=== PATIENT | female | born 1960 | race Caucasian/White ===

== ENCOUNTER → 2020-05-05 10:01 | Outpatient (CLI) | payer BC, SELFPAY ==
[2020-05-05 09:17] VITALS: BMI 33.7
[2020-05-05 12:11] LABS: AST(SGOT) 22 U/L (15-37); Alanine Aminotransfer ALT/SGPT 34 U/L (13-56); Albumin, Serum 3.8 g/dL (3.2-5.0); Alkaline Phosphatase 99 U/L (45-117); Bilirubin, Direct 0.12 mg/dL (0.00-0.30); Cholesterol 202 mg/dL (200); Globulin 4.2 g/dL (2.2-4.2); High Density Lipoprotein 61 mg/dL; Triglycerides 206 mg/dL; Very Low Density Lipoprotein 41 mg/dL (5-40)
== END ==
PROVIDERS: PCP Family Medicine; Referring Provider Internal Medicine Cardiovascular Disease; Visit Provider Internal Medicine Cardiovascular Disease
DX: E78.00 Pure hypercholesterolemia, unspecified (principal)
CPT/HCPCS: 36415; 80061; 80076

== ENCOUNTER → 2021-06-21 10:54 | Outpatient (CLI) | payer BC, SELFPAY ==
--- NOTE | 2021-06-21 11:01 | ECHOCS_ITS ---
Version 2 Reason For Study: Arrhythmia Procedure This was a 2D Doppler, Color Flow transthoracic echocardiogram. Contrast injection was performed. Exam performed in department. Left Ventricle Normal LV size. Left ventricular systolic function is normal. The estimated ejection fraction is 55 %. Stage 1 diastolic dysfunction. Apical wall motion abnormality may reflect pacemaker activation. Right Ventricle Normal RV size. ICD or pacer leads identified within the right ventricle. Normal systolic function. Atria Normal left atrium. Normal right atrium. Hypermobile atrial septum. Tricuspid Valve Normal tricuspid valve. Mild (1+) tricuspid valve insufficiency. Great Vessels Normal aortic root. The pulmonary artery is normal size. Pericardium/Pleural No pericardial effusion. Medication Diluted definity 4ml given slow IV push to enhance endocardial definition. MMode/2D Measurements & Calculations LVIDd: 4.9 cm IVSd: 0.96 cm Ao root diam: 3.1 cm LVIDs: 2.7 cm LVPWd: 0.77 cm RVDd: 4.4 cm FS: 45.6 % LAV(MOD-bp): 47.5 ml SV(MOD-sp4): 54.7 ml LVAd ap4: 34.4 cm2 LAV(MOD-bp) Indexed: 24.7 ml/m2 LVLd ap4: 8.0 cm LAV(MOD-sp2): 52.4 ml EDV(MOD-sp4): 119.4 ml LAV(MOD-sp4): 41.6 ml EDV(sp4-el): 125.5 ml LVAs ap4: 25.0 cm2 LVLs ap4: 7.6 cm ESV(MOD-sp4): 64.7 ml ESV(sp4-el): 70.2 ml EF(MOD-sp4): 45.8 % EF(sp4-el): 44.1 % SV(sp4-el): 55.3 ml LA dimension(2D): 3.6 cm LA A4 area: 15.9 cm2 RA A4 area: 16.8 cm2 Doppler Measurements & Calculations MV E max nathanael: 52.6 cm/sec Lat Peak E' Nathanael: 8.6 cm/sec Med Peak E' Nathanael: 5.9 cm/sec MV A max nathanael: 81.5 cm/sec E/E' lat: 6.1 E/E' med: 9.0 MV E/A: 0.65 Ao V2 max: 138.5 cm/sec LV V1 max: 129.0 cm/sec PA V2 max: 98.1 cm/sec Ao max P.7 mmHg LV V1 max P.7 mmHg Ao V2 mean: 99.5 cm/sec Ao mean P.3 mmHg Ao V2 VTI: 28.0 cm TR max nathanael: 246.1 cm/sec TR max P.2 mmHg ECHO/Echo Complete W/ Contrast Interpretation Summary Hypermobile atrial septum. Normal LV size. Left ventricular systolic function is normal. The estimated ejection fraction is 55 %. Stage 1 diastolic dysfunction. Mild (1+) tricuspid valve insufficiency. Compared to previous study, the left ventricular systolic function is the same. . Ordering Physician: Tanvir Gallo Referring Physician: Fran Chowdary Performed By: Geovanna Azar, RDCS, RVT
== END ==
PROVIDERS: PCP Family Medicine; Referring Provider Internal Medicine Cardiovascular Disease; Visit Provider Internal Medicine Cardiovascular Disease
DX: I42.8 Other cardiomyopathies (principal); I44.2 Atrioventricular block, complete; Z95.0 Presence of cardiac pacemaker
CPT/HCPCS: 93306; Q9957; A4216; C8929

== ENCOUNTER → 2025-04-22 | Outpatient (CLI) | payer OTHER, SELFPAY ==
--- NOTE | 2025-04-22 12:05 | RAD_ITS ---
PROCEDURE: CHEST PA AND LATERAL 04/22/2025 REASON FOR EXAM: FOR PPM GENERATOR CHANGE TECHNIQUE: Procedure Code: RADCXR Modality: DX Procedure: CHEST PA AND LATERAL COMPARISON: None FINDINGS: Left chest pacer. Bibasilar subsegmental atelectasis. No focal consolidation. No pleural effusion or pneumothorax. Cardiac silhouette is within normal limits. No acute fractures. RAD/Chest PA and Lateral IMPRESSION: No focal consolidations. Left chest pacer is noted with leads likely in approp riate position Reading Location: [id number]
[2025-04-22 12:18] LABS: Red Blood Cells-Urine 0 SEEN /hpf (0-5)
[2025-04-22 12:19] LABS: Mucous, Urine 0 SEEN /hpf (<or=2+)
[2025-04-22 12:46] LABS: Hematocrit 39.2 % (37-47); Hemoglobin 13.5 g/dL (12.0-15.0); Mean Corp Hgb Conc 34.4 g/dL (32-36); Mean Corpuscular Volume 90.1 fL (81-99); Mean Platelet Vol. 9.6 fl (6.2-12.0); Platelet Count 251 K/mm3 (150-450); RBC Distribution Width CV 12.2 % (11.6-14.6); RBC Distribution Width SD 39.8 fl (35.1-43.9); Red Blood Count 4.35 M/mm3 (4.2-5.4); White Blood Count 7.2 K/mm3 (4.4-11.0)
[2025-04-22 12:50] LABS: Color, Urine Yellow (Yellow); Glucose, Dipstick Normal (Normal); Ketone-Dipstick Negative (Negative); Leukocyte Esterase-Dipstick 25 /ul (Negative); Nitrite-Dipstick Negative (Negative); Occult Blood-Urine 10 /ul (Negative); Protein-Dipstick 15 mg/dl (Negative); Specific Gravity, Urine 1.010 (1.002-1.030); Urine Bilirubin Dipstick Negative (Negative)
[2025-04-22 12:55] LABS: Prothrombin Time (Protime)PT. 13.2 SECONDS (11.7-14.9)
[2025-04-22 13:05] LABS: Squamous Epithelial Cells - UA 0-5 SEEN /hpf (5-10)
[2025-04-22 13:46] LABS: Anion Gap 10 (5-15); BUN 21 mg/dL (4-19); BUN/Creat Ratio 22.3 RATIO (10-20); Calcium,Total 10.1 mg/dL (7.6-11.0); Carbon Dioxide 25.7 mmol/L (21.0-32.0); Chloride 103 mmol/L (98-108); Glucose 105 mg/dL (70-99); Potassium 4.1 mmol/L (3.3-5.1)
== END | disposition home or self-care (01) ==
LOC: RAD 11:57
PROVIDERS: PCP Family Medicine; Referring Provider Internal Medicine Cardiovascular Disease; Visit Provider Internal Medicine Cardiovascular Disease
DX: I44.2 Atrioventricular block, complete (principal); Z95.0 Presence of cardiac pacemaker
CPT/HCPCS: 36415; 71046; 80048; 81001; 85027; 85610

== ENCOUNTER 2025-04-25 06:57 | Day surgery (SDC) | payer OTHER, SELFPAY ==
[2025-04-24 09:48] VITALS: BMI 35.5
--- OUTSIDE RECORDS SUMMARY | 2025-04-25 07:19 | XMS RPT_ITS | CCD ---
Author Organization [facility] Care Team Providers Care Veneer Sorter Name Role Phone Herrera RN, Tena Reyna Unavailable Unavailable TERRI Silverman, Tena Reyna Unavailable Unavailable DeFinis, Harumi Y Unavailable Unavailable Herrera RN, Tena Reyna Unavailable Unavailable Epi RUIZ, Tiarra Meza Unavailable Clint RUIZ, Dr. Ramey Unavailable Akila MURRAY, Michell Unavailable Unavailable Bunny HEAD BAKER, Jaimie Unavailable Jeovany HEAD BAKER, Bridgette E Unavailable Unavailable Lakeisha Salgado C Unavailable Unavailable Naomi RN, Kyung L Unavailable Unavail able Jakob HEAD BAKER, Di Unavailable Unavailable Thierry MURRAY, Kimi Meza Unavailable Unavaila jaci Cruz RN, Mariel Unavailable [phone] Jana MURRAY, Daisy Godinez Unavailable Unavailable Miguel Holdena L Unavailable Afia HEAD BAKER, Nuvia Patel Unavailable Unavailab le Vess HEAD BAKER, Neilee L Unavailable Unavailable Wengerd HEAD BAKER, Evelia Unavailable Unavailabl e Unavailable Unavailable TIARRA CEDENO Attending Unavailable TIARRA CEDENO Admitting Unavailable TIARRA CEDENO Primary Care Unavailable TIARRA CEDENO Consulting Unavailable PROVIDER, UNKNOWN Consulting Unavailable PROVIDER, UNKNOWN Consulting Unavailable PROVIDER, UNKNOWN Consulting Unavailable TIARRA CEDENO Attending Unavailable TIARRA CEDENO Admitting Unavailable TIARRA CEDENO Primary Care Unavailable TIARRA CEDENO Consulting Unavailable PROVIDER, UNKNOWN Consulting Unavailable PROVIDER, UNKNOWN Consulting Unavailable PROVIDER, UNKNOWN Consulting Unavailable Dr. Tiarra Cedeno MD Primary Care Provider Epi RUIZ, Dr. Peters Referring Provider Gia Silverman Attending Provider Unavailable Allyson HERNANDEZ, Di Reyna Attending Provider Tanesha RUIZ, Dr. Ramey Attending Provider Tanesha RUIZ, Dr. Ramey Referring Provider Epi RUIZ, Dr. Peters Primary Care Physician Tanesha RUIZ, Dr. Ramey Attending Physician Gia Silverman Attending Physician Unavailable Di Boyce Attending Physician Tanesha, Tanvir Attending Unavailable Vaccariello, Tiarra Primary Care Unavailable Vaccariello, Tiarra Referring Unavailable Tanesha, Vining Attending Unavailable Vaccariello, Tiarra Primary Care Unavailable Tanesha, Vining Referring Unavailable Tanesha, Tanvir Attending Unavailable Vaccariello, Tiarra Primary Care Unavailable Tanesha, Vining Referring Unavailable Tanesha, Tanvir Attending Unavailable Vaccariello, Tiarra Primary Care Unavailable Tanesha, Tanvir Attending Unavailable Vaccariello, Tiarra Primary Care Unavailable Tanesha, Vining Referring Unavailable Vaccariello, Tiarra Primary Care Unavailable Tanesha, Tanvir Attending Unavailable Vaccariello, Tiarra Primary Care Unavailable Tanesha, Tanvir Referring Unavailable Tanesha, Tanvir Attending Unavailable Vaccariello, Tiarra Primary Care Unavailable Tanesha, Vining Attending Unavailable Gia Silverman Attending Unavailable Vaccariello, Tiarra Referring Unavailable Vaccariello, Tiarra Primary Care Unavailable Di Boyce Attending Unavail able Vaccariello, Tiarra Referring Unavailable Vaccariello, Tiarra Primary Care Unavailable Tanesha, Vining Attending Unavailable Tanesha, Tanvir Referring Unavailable Vaccariello, Tiarra Primary Care Unavailable Tanesha, Tanvir Attending Unavailable Vaccariello, Tiarra Primary Care Unavailable Medications Current Medications Medication Drug Class(es) Dates Sig (Normalized) Sig (Original) calcium carbonate 1250 mg / cholecalciferol 0.01 mg oral tablet (6 sources) Vitamin D Start: 04-20-2018 Start: 10-22-2013 take 1 tablet by rhina th once daily CALCIUM 500 + D 500-125 MG-UNIT TABS One tablet by mouth daily CALCIUM CARBONATE-VITAMIN D [id number] Tanvir Gallo MD Start: 12-02-2011 End: 10-22-2013 CALCIUM + D 600-200 MG-UNIT TABS 1 in the am and 2 at lunch, 750/450 CALCIUM CARBONATE-VITAMIN D [id number] Tanvir Gallo MD Multivitamin tablet (3 sources) Start: 04-20-2018 Start: 04-20-2018 Multivitamin t ablet Active 1 {tbl} PO DAILY April 20, 2018 12:00am Multivitamins Oral Tablet (15 sources) take 1 tablet by mouth once daily Multivitamins Oral Tablet ; 1 daily Comments: Prasanth Razo Comment on above: Prasanth Razo nitrofurantoin, macrocrystals 25 mg / nitrofurantoin, monohydrate 75 mg oral capsule (2 sources) Nitrofuran Antibacterial Start: 04-22-20 take 1 capsule by mouth every twelve hours at mealtime [place]-3 Fatty Acids (Fish Oil Concentrate) 1,000 mg capsule (3 sources) Start: 04-20-20 take 1 capsule by mouth once daily Start: 04-20-2018 take 1 capsule by mo [facility] once daily [place]-3 Fatty Acids (Fish Oil Concentrate) 1,000 mg capsule Active 1000 mg PO DAILY April 20, 2018 12:00am Bxmb-Yjbi-Ows-Pos-Gsi-Faeh-H or [phone] mg tablet (3 sources) Start: 05-25-2021 take 1 tablet by mouth twice daily Start: 05-25-2021 take 1 tablet by rhina twice daily Bstf-Srgb-Efk-Byu-Jdo-Nuxu-Hor [phone] mg tablet Active 1 {tbl} PO TWICE A DAY May 25, 2021 12:00am Turmeric Curcumin Oral Capsu le (15 sources) Turmeric Curcumi n Oral Capsule Comments: spring Comment on above: spring Completed/Discontinued Medications Medication Drug Class(es) Dates Sig (Normalized) Sig (Original) calcium carbonate 750 mg chewable tablet (15 sources) take 1 tablet by mouth once daily CALCIUM ANTACID EXTRA STRENGTH, 750MG (Oral Tablet Chewable) ; 1 daily (750 MG) Status: Inactive calcium carbonate / vitamin D (9 sources) Start: 10-22-2013 take 1 tablet by mouth once daily CALCIUM 500 + D 500-125 MG-UNIT TABS One tablet by mouth daily CALCIUM CARBONATE-VITAMIN D [id number] Tanvir Gallo MD Start: 10-22-2013 take 1 tablet by rhina th once daily CALCIUM 500 + D 500-125 MG-UNIT TABS One tablet by mouth daily CALCIUM CARBONATE-VITAMIN D [id number] Tanvir Gallo MD Start: 12-02-2011 CALCIUM + D 60 0-200 MG-UNIT TABS 1 in the am and 2 at lunch, 750/450 CALCIUM CARBONATE-VITAMIN D [id number] Tanvir Gallo MD Start: 12-02-2011 End: 10-22-2013 CALCIUM + D 600-200 MG-UNIT TABS 1 in the am and 2 at lunch, 750/450 CALCIUM CARBONATE-VITAMIN D [id number] Tanvir Gallo MD Start: 12-02-2011 CALCIUM + D 60 0-200 MG-UNIT TABS 1 in the am and 2 at lunch, 750/450 CALCIUM CARBONATE-VITAMIN D [id number] Tanvir Gallo MD Start: 12-02-2011 End: 10-22-2013 CALCIUM + D 600-200 MG-UNIT TABS 1 in the am and 2 at lunch, 750/450 CALCIUM CARBONATE-VITAMIN D [id number] Tanvir Gallo MD fish oil (20 sources) Start: 10-22-2013 take 1 tablet by rhina th once daily FISH OIL CAPS One tablet by mouth daily 667mg OMEGA-3 FATTY ACIDS CAPS [id number] Tanvir Gallo MD Start: 10-22-2013 take 1 tablet by rhina once daily FISH OIL CAPS One tablet by mouth daily 667mg OMEGA-3 FATTY ACIDS CAPS [id number] Tanvir Gallo MD Start: 12-02-2011 take 1 capsule by [facility] twice daily FISH OIL CAPS One capsulet by mouth twice daily OMEGA-3 FATTY ACIDS CAPS [id number] Tanvir Gallo MD Start: 12-02-2011 take 1 capsule by mo [facility] twice daily FISH OIL CAPS One capsulet by mouth twice daily OMEGA-3 FATTY ACIDS CAPS [id number] Tanvir Gallo MD take 1 capsule by [facility] once daily [place]-3 Fish Oil 1000 MG Oral Capsule ; 1 daily (1000 MG) Comments: Prasanth Ken Comment on above: Prasanth Kne glucosamine hydrochloride 750 mg oral tablet (20 sources) Start: 8 End: 1 take 1 tablet by mouth twice daily Glucosamine Hcl 750 mg tablet Discontinued 750 mg PO TWICE A DAY April 20, 2018 12:00am May 25, 2021 11:39am Start: 10-22-2013 take 2 tablets by [facility] once daily GLUCOSAMINE SULFATE 500 MG TABS Two tablets by mouth daily GLUCOSAMINE SULFATE [id number] Tanvir Gallo MD Start: 10-22-2013 GLUCOSAMINE 75 0 MG TABS 3 times weekly GLUCOSAMINE HCL [id number] Tanvir Gallo MD Start: 12-02-2011 take 1 tablet by [facility] once daily GLUCOSAMINE SULFATE 500 MG TABS One tablet by mouth daily GLUCOSAMINE SULFATE [id number] Tanvir Gallo MD take 1 tablet by rhina once daily Glucosamine HCl 1000 MG Oral Tablet ; 1 daily (1000 MG) Comments: [facility] Comment on above: [facility] Comzbogvvxh-M4-Weq ritikaia Serr 1,500-400-100 mg-unit-mg tablet (3 sources) Start: 1 End: 5 take 1 tablet by mouth once daily at mealtime Yihitssfunz-Z2-Gmrfehg ia Serr 1,500-400-100 mg-unit-mg tablet Discontinued 1 {tbl} PO DAILY May 25, 2021 12:00am September 12, 2024 10:48am give after food/meal MULTIPLE VITAMIN (2 sources) Start: 2 take 1 tablet by mouth once daily MULTIVITAMINS TABS One tablet by mouth daily MULTIPLE VITAMIN [id number] Tanvir Gallo MD MULTIPLE VITAMIN (2 sources) Start: 2 take 1 tablet by mouth once daily MULTIVITAMINS TABS One tablet by mouth daily MULTIPLE VITAMIN [id number] Tanvir Gallo MD niacin 100 mg oral tablet (15 sources) Nicotinic Acid take 1 tablet by mouth once daily NIACIN, 100MG (Oral Tablet) ; 1 daily (100 MG) Status: Inactive Problems Active Problems Problem Classification Problem Date Documented Da te Episodic/Chronic Adjustment disorders (20 sources) Grief finding; Translations: [Adjustment disorder with depressed mood] 05-22-2023 Chronic Administrative/social admission (20 sources) Follow-up status; Translations: [Other specified counseling] 05-22-2023 Episodic Blindness and vision defects (20 sources) Wears glasses; Translations: [Presence of spectacles and contact lenses] 05-22-2023 Episodic Conduction disorders (20 sources) Cardiac pacemaker in situ; Translations: [Complete atrioventricular block] Onset: 2 12-01-2011 Chronic Comment on above: July 2005, gen jordan junior 03/05/12 Disorders of lipid metabolism (20 sources) Hyperlipidemia; Translations: [Mixed hyperlipidemia] Onset: 2 12-01-2011 Chronic Gastrointestinal hemorrhage (15 sources) Hemorrhage of rectum and anus 06-12-2013 Episodic Immunizations and screening for infectious disease (20 sources) Needs influenza immunization; Translations: [Encounter for immunization] 06-06-2022 Episodic Menopausal disorders (15 sources) Symptomatic menopausal or female climacteric states 06-02-2010 Chronic Other bone disease and musculoskeletal deformities (20 sources) Osteopenia; Translations: [Other specified disorders of bone density and structure, other site] 05-22-2023 Episodic Comment on above: 2016 Other circulatory disease (20 sources) History of heart block; Translations: [Personal history of other diseases of the circulatory system] 05-22-2023 Episodic Other nutritional; endocrine; and metabolic disorders (4 sources) Body mass index (BMI) 31.0-31.9, adult; Translations: [Body mass index (BMI) 31.0-31.9, adult] Onset: 5 04-26-2017 Chronic Other nutritional; endocrine; and metabolic disorders (20 sources) Body mass index 30+ - obesity; Translations: [Body mass index (BMI) 32.0-32.9, adult] 06-30-2021 Chronic Comment on above: The patient was coun seled to monitor their diet closely and restrict the intake of sugars, refined carbohydrates, and red meat. Increased intake of vegetables encouraged. Other nutritional; endocrine; and metabolic disorders (3 sources) Obesity; Translations: [Obesity, unspecified] 06-06-2022 Chronic Other screening for suspected conditions (not mental disorders or infectious disease) (20 sources) Patient encounter status; Translations: [Encounter for other screening for malignant neoplasm of breast] 05-30-2019 Episodic Latesha-; endo-; and myocarditis; cardiomyopathy (7 sources) Cardiomyopathy in diseases classified elsewhere; Translations: [Cardiomyopathy] Onset: 2 12-01-2011 Chronic Residual codes; unclassified (15 sources) History of vaccination; Translations: [Personal history of other drug therapy] 06-06-2022 Episodic Residual codes; unclassified (20 sources) Procedure and treatment not carried out because of patient's decision for unspecified reasons; Translations: [Surgical or other procedure not carried out because of patient's decision] 05-30-2019 Episodic Comment on above: declines fecal occul t blood home kit this year Residual codes; unclassified (20 sources) Up-to-date with immunizations; Translations: [Personal history of other drug therapy] 05-22-2023 Episodic Residual codes; unclassified (20 sources) Menopause present; Translations: [Asymptomatic menopausal state] 05-22-2023 Episodic Comment on above: last period 0 Residual codes; unclassified (20 sources) Non-smoker; Translations: [Other specified health status] 05-22-2023 Episodic Residual codes; unclassified (15 sources) Influenza vaccination declined; Translations: [Immunization not carried out because of patient refusal] 06-09-2016 Episodic Unclassified (15 sources) Number of Pregnancies 06-06-2022 Comment on above: 0. Past or Other Problems Problem Classification Problem Date Documented Date Episodic/Chronic Nonspecific chest pain (4 sources) Chest pain, unspecified; Translations: [Chest pain, unspecified] Onset: 10-21-2014 10-21-2014 Episodic Other nutritional; endocrine; and metabolic disorders (4 sources) Body mass index (BMI) 28.0-28.9, adult; Translations: [Body mass index (BMI) 28.0-28.9, adult] Onset: 10-21-2014 10-21-2014 Episodic Unclassified (15 sources) Well adult female - The patient feels well with no complaints, has decreased energy level and is sleeping well. The patient has a balanced diet. The patient exercises daily (walking 30 mins a day). The patient sleeps 8 hours per night. 05-22-2023 Unclassified (20 sources) Well adult female - The patient feels well with no complaints, has good energy level and is sleeping well. The patient takes supplemental vitamins. The patient exercises daily (walking for 30 min). The patient sleeps 7 hours per night. 06-06-2022 Unclassified (15 sources) Well adult female - The patient feels well with no complaints, has good energy level and is sleeping well. The patient takes supplemental vitamins. The patient exercises daily. The patient sleeps 7 hours per night. 06-16-2017 Unclassified (15 sources) Well Adult, female - The patient feels well with no complaints, has good energy level and is sleeping well. The patient is not using any method of contraception at this time. The patient has a balanced diet and takes supplemental vitamins. The patient exercises daily. The patient sleeps 7 hours per night. 06-09-2016 Unclassified (15 sources) Mammogram, Screening 04-26-2016 Unclassified (15 sources) Well Adult, female - The patient feels well with minor complaints, has decreased energy level and is sleeping well. The patient is not using any method of contraception at this time. The patient has a balanced diet. The patient exercises 3 - 4 times per week. The patient sleeps 7 hours per night. 06-18-2015 Unclassified (15 sources) Well adult female - The patient feels well with no complaints, has good energy level and is sleeping well. The first day of the last menstrual period was : (2009). The patient has a balanced diet and takes supplemental vitamins. The patient exercises 3 - 4 times per week. The patient sleeps 8 hours per night. Note for Well adult female: -Regular pacemaker clinic checks. Next cardio visit spring 2013.Next pap due 2015.Ready for referral for colonoscopy. Wants Dr Jaramillo in [place].Will get flu vaccine today. 06-12-2013 Unclassified (15 sources) Well adult female - The patient feels well with minor complaints, has good energy level and is sleeping well. The patient exercises daily (30 min daily). The patient sleeps 8 hours per night. 06-06-2012 Unclassified (15 sources) Well adult female - The patient feels well with minor complaints (menopausal symptoms), has good energy level and is sleeping well. Most recent Pap smear: : (2007, repeat test every 3 yrs). The first day of the last menstrual period was : (04-30-2010). Date of last mammogram : ( wnl). Date of most recent cholesterol screening : (). Date of most recent glucose screening : (). Date of most recent influenza vaccine none (is considering a vaccine this year.). Last Tetanus booster: Date: (). The patient has a balanced diet and takes supplemental vitamins. Patient exercises daily. 06-01-2011 Unclassified (15 sources) Well adult female - The patient feels well with no complaints. 06-02-2010 Unclassified (7 sources) Well adult female - The patient feels well with no complaints, has good energy level and is sleeping well. The patient has a balanced diet. The patient exercises daily (walks dogs, does sit ups etc). The patient sleeps 8 hours per night. Note for Well adult female: -Will see cardiology in Sep. Will have pacemaker check this week. Is likely due for replacement.States last year she pushed colonoscopy off until beginning of year and then no one contacted me. Had knee pain r>l and used a knee brace and turmeric and is better. 05-20-2024 Results Test Name Value Interpretation Reference Range Facility Anion gap in Serum or Plasma Ordered By: Tanvir Gallo on 04-22-2025 Anion gap [Moles/Vol] 10 mmol/L - [facility] BUN/creatinine ratioOrdered By: Tanvir Gallo on 04-22-2025 Urea nitrogen/Creatinine [Mass ratio] 22.3 mg/mg High 05-26 [facility] Basic Metabolic Profile (BMP )on 04-22-2025 BUN/CRE 22.3 RATIO High 05-26 [facility] Comment on above: Order Comment: For P PM generator change Performed By: #### L 300.3900, L100.0500, L500.2500, L400.0001 #### [facility] [address] [place], [address] Calcium [Mass/Vol] 10.1 mg/dL Normal 7.6-11.0 [facility] Comment on above: Order Comment: For P PM generator change Performed By: #### L 300.3900, L100.0500, L500.2500, [id number] #### [facility] [address] [place], [address] Chloride [Moles/Vol] 103 mmol/L Normal 98-108 [facility] Comment on above: Order Comment: For P PM generator change Performed By: #### L 300.3900, L100.0500, L500.2500, [id number] #### [facility] [address] [place], [address] CO2 [Moles/Vol] 25.7 mmol/L Normal 21.0-32.0 [facility] Comment on above: Order Comment: For P PM generator change Performed By: #### L 300.3900, L100.0500, L500.2500, L400.0001 #### [facility] [address] [place], [address] Creatinine [Mass/Vol] 0.96 mg/dL Normal 0.70-1.20 [facility] Comment on above: Order Comment: For P PM generator change Performed By: #### L 300.3900, L100.0500, L500.2500, [id number] #### [facility] [address] [place], [address] GAP 10 Normal 5-15 [facility] Comment on above: Order Comment: For P PM generator change Performed By: #### L 300.3900, L100.0500, L500.2500, [id number] #### [facility] [address] [place], [address] GFR/1.73 sq M.predicted among non-blacks MDRD (S/P/Bld) [Vol rate/Area] 66 mL/min/{1.73_m2} Normal >60 [facility] Comment on above: Order Comment: For P PM generator change Result Comment: mL/m in/1.73m2 CKD-EPI Creatinine Equation (2020) Performed By: #### L 300.3900, L100.0500, L500.2500, L400.0001 #### [facility] [address] [place], [address] Glucose [Mass/Vol] 105 mg/dL High 70-99 [facility] Comment on above: Order Comment: For P PM generator change Performed By: #### L 300.3900, L100.0500, L500.2500, L400.0001 #### [facility] [address] [place], [address] Potassium [Moles/Vol] 4.1 mmol/L Normal 3.3-5.1 [facility] Comment on above: Order Comment: For P PM generator change Performed By: #### L 300.3900, L100.0500, L500.2500, [id number] #### [facility] [address] [place], [address] Sodium [Moles/Vol] 139 mmol/L Normal 133-145 [facility] Comment on above: Order Comment: For P PM generator change Performed By: #### L 300.3900, L100.0500, L500.2500, L400.0001 #### [facility] [address] [place], [address] Urea nitrogen [Mass/Vol] 21 mg/dL High 4-19 [facility] Comment on above: Order Comment: For P PM generator change Performed By: #### L 300.3900, L100.0500, L500.2500, L400.0001 #### [facility] [address] [place], [address] Bilirubin Test strip Ql (U)O rdered By: Tanvir Gallo on 04-22-2025 Bilirubin Ql (U) Negative Negative [facility] CBC-Complete Blood Cnt No Di ffon 04-22-2025 Erythrocyte distribution width (RBC) [Ratio] 12.2 % Normal 11.6-14.6 [facility] Comment on above: Order Comment: Comme nts: For PPM generator change Performed By: #### L 300.3900, L100.0500, L500.2500, [id number] #### [facility] [address] [place], [address] Hematocrit (Bld) [Volume fraction] 39.2 % Normal 37-47 [facility] Comment on above: Order Comment: Comme nts: For PPM generator change Performed By: #### L 300.3900, L100.0500, L500.2500, [id number] #### [facility] [address] [place], [address] Hemoglobin (Bld) [Mass/Vol] 13.5 g/dL Normal 12.0-15.0 [facility] Comment on above: Order Comment: Comme nts: For PPM generator change Performed By: #### L 300.3900, L100.0500, L500.2500, [id number] #### [facility] [address] [place], [address] MCH (RBC) [Entitic mass] 31.0 pg Normal 27.0-32.0 [facility] Comment on above: Order Comment: Comme nts: For PPM generator change Performed By: #### L 300.3900, L100.0500, L500.2500, L400.0001 #### [facility] [address] [place], [address] MCHC (RBC) [Mass/Vol] 34.4 g/dL Normal 32-36 [facility] Comment on above: Order Comment: Comme nts: For PPM generator change Performed By: #### L 300.3900, L100.0500, L500.2500, [id number] #### [facility] [address] [place], [address] MCV (RBC) [Entitic vol] 90.1 fL Normal 81-99 [facility] Comment on above: Order Comment: Comme nts: For PPM generator change Performed By: #### L 300.3900, L100.0500, L500.2500, [id number] #### [facility] [address] [place], [address] Platelet mean volume (Bld) [Entitic vol] 9.6 fL Normal 6.2-12.0 [facility] Comment on above: Order Comment: Comme nts: For PPM generator change Performed By: #### L 300.3900, L100.0500, L500.2500, [id number] #### [facility] [address] [place], [address] Platelets (Bld) [#/Vol] 251 10*3/uL Normal 150-450 [facility] Comment on above: Order Comment: Comme nts: For PPM generator change Performed By: #### L 300.3900, L100.0500, L500.2500, [id number] #### [facility] [address] [place], [address] RBC (Bld) [#/Vol] 4.35 10*6/uL Normal 4.2-5.4 [facility] Comment on above: Order Comment: Comme nts: For PPM generator change Performed By: #### L 300.3900, L100.0500, L500.2500, [id number] #### [facility] [address] [place], [address] RDW SD 39.8 fl Normal 35.1-43.9 [facility] Comment on above: Order Comment: Comme nts: For PPM generator change Performed By: #### L 300.3900, L100.0500, L500.2500, [id number] #### [facility] [address] [place], [address] WBC (Bld) [#/Vol] 7.2 10*3/uL Normal 4.4-11.0 [facility] Comment on above: Order Comment: Comme nts: For PPM generator change Performed By: #### L 300.3900, L100.0500, L500.2500, [id number] #### [facility] [address] [place], [address] Carbon dioxide, total [Moles /volume] in Central venous bloodOrdered By: Tanvir Gallo on 04-22-2025 CO2 [Moles/Vol] 25.7 mmol/L 21.0-32.0 [facility] Cardiology Visit Reporton Cardiology Visit Report [facility] [address] [place] [address] OFFICE VISIT Date of Service: 04/22/25 MR#: [id number] Acct: [id number] Name: DEMARIO VELEZ Rep #: [id number] : 1960 Provider: MARY Burrell Age/Sex: 64/F Location: [facility] Status: Signed HPI HPI History of Present Illness Details: This is a 64-year-old lady with a history of permanent pacemaker implantation for complete heart block. Her device has reached GARCIA and she does need a generator change. Her last echocardiographic evaluation was in June 2021 demonstrating an ejection fraction of 55% with mild tricuspid regurgitation. She feels that her PPM reached EOL 04/18/2025 as she noted that her HR was 50 after a walk today. She notes that she was more SOB and fatigued and this caused to to call our PPM clinic for a check today. This was new for her. Bp better at home. This morning it was normal. Intake Vital Signs 09/12/24 09:46 04/22/25 11:17 Height 5 ft 4 in 5 ft 4 in Weight: 207 lb BMI 35.5 BP 168/83 H Blood Pressure Location Lt brachial Position Sitting Respiration 16 Pulse 50 L Pulse Source Monitor Intake Visit Reasons: UPDATE H P Radiophone Operator Required: No Accompanied by: Self Is patient in pain?: No Allergies No Known Allergies Allergy (Verified 04/22/25 11:26) Medications ???Medication ???Instructions ???Recorded ???Confirmed ???Type calcium 500 mg (as 1 tab PO DAILY 04/20/18 04/22/25 H istory carbonate)-vitamin D3 10 mcg (400 unit) tablet multivitamin 1 tab PO DAILY 04/20/18 04/22/25 H istory omega-3 fatty acids 1,000 mg 1,000 mg PO DAILY 04/20/18 5 History capsule (Fish Oil Concentrate) gtbrzoac-avbkuy-rwf-y qj-dka-niht-horse 1 tab PO BID 05/25/21 History 100 mg-100 mg-100 mg-125 mg tab Ejection fraction %: 55 PFSH Medical History Complete heart block HLD (hyperlipidemia) Non-ischemic cardiomyopathy Obesity Surgical History History of permanent cardiac pacemaker placement (03/05/12) Family History Brother CAD (coronary artery disease) Diabetes Father No problems noted. Brother Diabetes Social History Smoking Status: Never smoker alcohol intake: never substance use type: does not use ROS Const Const: Positive for fatigue; Negative for weakness, daytime sleepiness or difficulty sleeping ENT ENT: Negative for dizziness or Nosebleed/epistaxis Cardio Chest Pain: No Edema: None Resp Respiratory: Positive for SOB with activity; Negative for SOB at rest, SOB orthopnea SOB lying down or Cough GI GI: Negative nausea, vomiting or heartburn Neuro Neuro: Negative for dizziness, lightheadedness, near syncope or weakness Endo Endo: Positive for fatigue Cardiology Exam Const Appearance: cooperative, no acute distress and well developed Orientation: alert, awake and oriented x3 Head Head: normocephalic and atraumatic Mouth: moist mucous membranes Eyes General: appearance normal, both eyes and all related structures Conjunctivae: conjunctivae normal Pupils: PERRL EOM: EOM intact bilaterally Neck Neck: normal visual inspection, no lymphadenopathy and no JVD Carotids: Negative bruit Neck Mass: Negative Neck mass Chest Chest inspection: normal inspection of the chest and symmetric chest movement Auscultation: Bilateral: Clear to Auscultation Cardio Palpation: normal PMI Rate: bradycardic Rhythm: regular rhythm Heart sounds: S1 normal and S2 normal; Negative rub, gallop or murmur GI GI: normal to inspection, soft, no hepatosplenomegaly and bowel sounds present; Negative tender Neuro General: patient alert, patient awake, patient oriented x3, CN's II-XI intact bilaterally and moves all extremities Extremities Pulses: Normal: Right Posterior Tibial Pulse, Left Posterior Tibial Pulse, Right Radial Pulse and Left Radial Pulse Lower Extremity Edema: None: Bilateral Psych Psychological: normal affect Supplemental Info Supplemental Information ECHOCARDIOGRAM 06/21/2021 Interpretation Summary Hypermobile atrial septum. Normal LV size. Left ventricular systolic function is normal. The estimated ejection fraction is 55 %. Stage 1 diastolic dysfunction. Mild (1+) tricuspid valve insufficiency. Compared to previous study, the left ventricular systolic function is the same.. ECHOCARDIOGRAM 10/27/2014 Interpretation Summary Hypermobile atrial septum. Normal left ventricle. Left ventricular systolic function is lower limits of normal. The estimated ejection fracti (more content not included)... Normal [facility] Chest PA and Lateralon 04-22 Chest PA and Lateral [facility] [address] [place] [address] [id number] Chest PA and Lateral MR#: [id number] Acct: [id number] Name: DEMARIO VELEZ Rep #: [id number] : 1960 F 64 From: Eleanor Cerna PCP: Dr. Tiarra Cedeno MD Status: REG CLI Study: Chest PA and Lateral Date of Exam: 04/22/25 Exam# [id number] Ordering Dr: Tanvir Gallo MD PROCEDURE: CHEST PA AND LATERAL 04/22/2025 REASON FOR EXAM: FOR PPM GENERATOR CHANGE TECHNIQUE: Procedure Code: RADCXR Modality: DX Procedure: CHEST PA AND LATERAL COMPARISON: None FINDINGS: Left chest pacer. Bibasilar subsegmental atelectasis. No focal consolidation. No pleural effusion or pneumothorax. Cardiac silhouette is within normal limits. No acute fractures. RAD/Chest PA and Lateral IMPRESSION: No focal consolidations. Left chest pacer is noted with leads likely in appropriate position Reading Location: [id number] CC: Dr. Tanvir Gallo MD; Dr. Tiarra Cedeno MD Window Draper: Signed Normal [facility] Chloride assayOrdered By: Reginald Gallo on 04-22-2025 Chloride [Moles/Vol] 103 mmol/L 98-108 [facility] Erythrocyte distribution wid th ratioOrdered By: Tanvir Gallo on 04-22-2025 Erythrocyte distribution width (RBC) [Ratio] 12.2 % 11.6-14.6 [facility] Erythrocyte distribution wid th standard deviationOrdered By: Tanvir Gallo on 04-22-2025 Erythrocyte distribution width (RBC) [Ratio] 39.8 fl 35.1-43.9 [facility] Glomerular filtration rate ( GFR) estimation/1.73 sq m using serum, plasma, or whole bOrdered By: Tanvir Gallo on 04-22-2025 GFR/1.73 sq M.predicted among non-blacks MDRD (S/P/Bld) [Vol rate/Area] 66 mL/min/{1.73_m2} >60 [facility] Comment on above: mL/min/1.73m2 CKD-EP I Creatinine Equation (2020) Hematocrit Auto (Bld) [Volum e fraction]Ordered By: Tanvir Gallo on 04-22-2025 Hematocrit (Bld) [Volume fraction] 39.2 % 37-47 [facility] Hemoglobin measurementOrdere d By: Tanvir Gallo on 04-22-2025 Hemoglobin (Bld) [Mass/Vol] 13.5 g/dL 12.0-15.0 [facility] International normalized rat io (INR) calculationOrdered By: Tanvir Gallo on 04-22-2025 INR Coag (Bld) [Relative time] 1.0 {INR} [facility] Ketones Test strip Ql (U)Ord ered By: Tanvir Gallo on 04-22-2025 Ketones Ql (U) Negative Negative [facility] MCV (mean corpuscular volume ) determinationOrdered By: Tanvir Gallo on 04-22-2025 MCV (RBC) [Entitic vol] 90.1 fL 81-99 [facility] Mean corpuscular hemoglobin (MCH) determinationOrdered By: Tanvir Gallo on 04-22-2025 MCH (RBC) [Entitic mass] 31.0 pg 27.0-32.0 [facility] Mean corpuscular hemoglobin concentration (MCHC) determinationOrdered By: Tanvir Gallo on 04-22-2025 MCHC (RBC) [Mass/Vol] 34.4 g/dL 32-36 [facility] Mean platelet volume determi nationOrdered By: Tanvir Gallo on 04-22-2025 Platelet mean volume (Bld) [Entitic vol] 9.6 fL 6.2-12.0 [facility] Microscopic analysis of urin e for red blood cells (RBC)Ordered By: Tanvir Gallo on 04-22-2025 Microscopic analysis of urine for red blood cells (RBC) 0 SEEN /hpf 0-5 [facility] Mucus LM Ql (Urine sed)Order ed By: Tanvir Gallo on 04-22-2025 Mucus Ql (Urine sed) 0 SEEN /hpf [facility] Nitrite Test strip Ql (U)Ord ered By: Tanvir Gallo on 04-22-2025 Nitrite Ql (U) Negative Negative [facility] Pacemaker Checkon 04-22-2025 Pacemaker Check [facility] [address] [place] [address]. [address] [place] [address] Pacemaker Check Date of Service: 04/22/251605 MR#: [id number] Acct: [id number] Name: DEMARIO VELEZ HEYDI Rep #: [id number] : 1960 From: Gia Silverman Age/Sex: 64/F Location: [facility] Status: Signed Billing Codes PM Device Codes: 76260 PM Dev Prog Eval, Dual Assessment and Plan Assessment and Plan (1) Complete heart block: Status: Chronic (2) History of permanent cardiac pacemaker placement: Status: Chronic Comment: July 2005, gen change 03/05/12 04/22/25 1607 Date Gia Mirza Signature: Date (if applicable) CC: Normal [facility] Platelet countOrdered By: Reginald sevilla Tanesha on 04-22-2025 Platelets (Bld) [#/Vol] 251 10*3/uL 150-450 [facility] Potassium measurement (mass/ volume)Ordered By: Vining Tanesha on 04-22-2025 Potassium (Unsp spec) [Mass/Vol] 4.1 mmol/L 3.3-5.1 [facility] Protein Test strip Ql (U)Ord ered By: Tanvir Tanehsa on 04-22-2025 Protein Ql (U) 15 mg/dl High Negative [facility] Prothrombin Time w/INRon INR Coag (PPP) [Relative time] 1.0 {INR} Normal [facility] Comment on above: Order Comment: Comme nts: For PPM Generator change Performed By: #### L 300.3900, L100.0500, L500.2500, L400.0001 #### [facility] [address] [place], [address] PT Coag (PPP) [Time] 13.2 s Normal 11.7-14.9 [facility] Comment on above: Order Comment: Comme nts: For PPM Generator change Performed By: #### L 300.3900, L100.0500, L500.2500, L400.0001 #### [facility] [address] [place], [address] Prothrombin timeOrdered By: Tanvirdi Gallo on 04-22-2025 PT Coag (PPP) [Time] 13.2 s 11.7-14.9 [facility] RBC Auto (Bld) [#/Vol]Ordere d By: Tanvir Tanesha on 04-22-2025 RBC (Bld) [#/Vol] 4.35 10*6/uL 4.2-5.4 [facility] Serum creatinine measurement (mass/volume)Ordered By: Tanvir Gallo on 04-22-2025 Creatinine [Mass/Vol] 0.96 mg/dL 0.70-1.20 [facility] Serum glucose measurement (m ass/volume)Ordered By: Viningcorinne Gallo on 04-22-2025 Glucose [Mass/Vol] 105 mg/dL High 70-99 [facility] Serum or plasma calcium hunter urement (mass/volume)Ordered By: Tanvir Gallo on 04-22-2025 Calcium [Mass/Vol] 10.1 mg/dL 7.6-11.0 [facility] Serum or plasma urea nitroge n measurement (mass/volume)Ordered By: Tanvircorinne Gallo on 04-22-2025 Urea nitrogen [Mass/Vol] 21 mg/dL High 4-19 [facility] Sodium levelOrdered By: Hardik Gallo on 04-22-2025 Sodium [Moles/Vol] 139 mmol/L 133-145 [facility] Squamous epithelial cells de tection in urine sediment by light microscopyOrdered By: Tanvir Gallo on 04-22-2025 Epithelial cells.squamous LM Ql (Urine sed) 0-5 SEEN /hpf -10 [facility] Urinalysis, Completeon 04-22 EPI,SQUAMOUS 0-5 SEEN Normal -10 [facility] Comment on above: Order Comment: For P PM generator change DIRECTOR MARKETING TO SPECIFY Performed By: #### L 300.3900, L100.0500, L500.2500, L400.0001 #### [facility] [address] [place], [address] WBC 0-5 SEEN Normal 0-5 [facility] Comment on above: Order Comment: For P PM generator change DIRECTOR MARKETING TO SPECIFY Performed By: #### L 300.3900, L100.0500, L500.2500, L400.0001 #### [facility] [address] [place], [address] BACTERIA 0 SEEN Normal None Seen [facility] Comment on above: Order Comment: For P PM generator change DIRECTOR MARKETING TO SPECIFY Performed By: #### L 300.3900, L100.0500, L500.2500, L400.0001 #### [facility] [address] [place], [address] Mucus Ql (Urine sed) 0 SEEN Normal [facility] Comment on above: Order Comment: For P PM generator change DIRECTOR MARKETING TO SPECIFY Performed By: #### L 300.3900, L100.0500, L500.2500, L400.0001 #### [facility] [address] [place], [address] RBC 0 SEEN Normal 0-5 [facility] Comment on above: Order Comment: For P PM generator change DIRECTOR MARKETING TO SPECIFY Performed By: #### L 300.3900, L100.0500, L500.2500, L400.0001 #### [facility] [address] [place], [place], [facility] Urine clarityOrdered By: Eren Gallo on 04-22-2025 Clarity (U) Clear Clear [facility] Urine color determinationOrd ered By: Tanvir Gallo on 04-22-2025 Color (U) Yellow Yellow [facility] Urine glucose detectionOrder ed By: Tanvir Gallo on 04-22-2025 Glucose Ql (U) Normal mg/dl Normal [facility] Urine leukocyte esterase det ection by dipstickOrdered By: Tanvir Gallo on 04-22-2025 Leukocyte esterase Test strip Ql (U) 25 /ul High Negative [facility] Urine pHOrdered By: Beth on 04-22-2025 pH (U) 7.0 [pH] 5.0 - 8.0 [facility] Urine sediment bacteria coun t by microscopy (number/high power field)Ordered By: Tanvir Gallo on 04-22-2025 Bacteria LM.HPF (Urine sed) [#/Area] 0 /[HPF] None Seen [facility] Urine specific gravity measu rementOrdered By: Tanvir Gallo on 04-22-2025 Specific gravity (U) [Rel density] 1.010 1.002-1.030 [facility] Urine urobilinogen measureme ntOrdered By: Tanvir Gallo on 04-22-2025 Urobilinogen Ql (U) Normal mg/dl Normal [facility] White blood cell (WBC) count Ordered By: Tanvir [facility] on 04-22-2025 WBC (Bld) [#/Vol] 7.2 10*3/uL 4.4-11.0 [facility] White blood cell countOrdere d By: Tanvir Tanesha on 04-22-2025 White blood cell count 0-5 SEEN /hpf 0-5 [facility] Pacemaker Checkon 12-09-2024 Pacemaker Check [address] [place] [address] Pacemaker Check Date of Service: 12/09/241509 MR#: [id number] Acct: [id number] Name: DEMARIO VELEZ Rep #: [id number] : 1960 From: Gia Silverman Age/Sex: 64/F Location: [facility] Status: Signed Billing Codes PM Device Codes: 02607 PM Dev Prog Eval, Dual 12/09/241509 Date Gia Herrera Cosigner Signature: Date (if applicable) CC: Normal [facility] Cardiology Visit Reporton Cardiology Visit Report [facility] [place] [address] [place] [address] OFFICE VISIT Date of Service: 09/12/24 MR#: [id number] Acct: [id number] Name: DEMARIO VELEZ Rep #: [id number] : 1960 Provider: Dr. Tanvir Gallo MD Age/Sex: 64/F Location: [facility] Status: Signed HPI HPI History of Present Illness Details: This is a 64-year-old lady with a history of permanent pacemaker implantation for complete heart block. She returns for routine follow-up visit. She denies any chest pain or shortness of breath or paroxysmal nocturnal dyspnea or pedal edema. Her last echocardiographic evaluation was in June 2021 demonstrating an ejection fraction of 55% with mild tricuspid regurgitation. She presents today and had her pacemaker interrogated. She denies any cardiac symptomatology whatsoever. Her physical exam is unremarkable. Intake Vital Signs 07/11/23 10:40 09/12/24 09:46 Height 5 ft 4 in 5 ft 4 in Weight: 204 lb BMI 35.0 BP 155/95 H Blood Pressure Location Lt brachial Position Sitting Respiration 16 Pulse 64 Pulse Source Monitor Intake Visit Reasons: 1 Y FU PPM f/u @ 9:30am Radiophone Operator Required: No Accompanied by: Self Is patient in pain?: No Allergies No Known Allergies Allergy (Verified 09/12/24 09:48) Medications ???Medication ???Instructions ???Recorded ???Confirmed ???Type calcium 500 mg (as 1 tab PO DAILY 04/20/18 09/12/24 H istory carbonate)-vitamin D3 10 mcg (400 unit) tablet multivitamin 1 tab PO DAILY 04/20/18 09/12/24 H istory omega-3 fatty acids 1,000 mg 1,000 mg PO DAILY 04/20/18 5 History capsule (Fish Oil Concentrate) jbfacznp-lkawis-mxv-y un-umn-laso-horse 1 tab PO BID 05/25/21 History 100 mg-100 mg-100 mg-125 mg tab Have you fallen in the past year?: No PFSH Medical History Complete heart block Obesity Non-ischemic cardiomyopathy HLD (hyperlipidemia) Surgical History History of permanent cardiac pacemaker placement (03/05/12) Family History Brother CAD (coronary artery disease) Diabetes Father No problems noted. Brother Diabetes Social History Smoking Status: Never smoker alcohol intake: never substance use type: does not use ROS Const Const: Negative for fatigue, weakness, headache(s), daytime sleepiness or difficulty sleeping ENT ENT: Negative for headache(s), dizziness or Nosebleed/epistaxis Cardio Chest Pain: No Palpitations: No Edema: None Resp Respiratory: Negative for SOB with activity, SOB at rest, SOB orthopnea SOB lying down or Cough GI GI: Negative nausea, vomiting or heartburn Neuro Neuro: Negative for dizziness, lightheadedness, near syncope, headache(s) or weakness Endo Endo: Negative for fatigue Cardiology Exam Const Appearance: cooperative, healthy appearing, no acute distress, well developed and well groomed Nutritional Appearance: average body habitus and well nourished Orientation: alert, awake and oriented x3 Head Head: normal to inspection, normocephalic and atraumatic Ears: hearing grossly normal bilaterally and external ears normal Nose: external nose normal, nares normal, nasal mucous membranes and turbinates normal, septum normal and no nasal discharge Face and Sinus: face symmetric Mouth: oral mucosae normal, tongue normal, oropharynx normal and moist mucous membranes Teeth and gingiva: dentition normal Throat: posterior oropharynx normal, tonsils normal and uvula midline Eyes General: appearance normal, both eyes and all related structures Eyelids: eyelids normal Conjunctivae: conjunctivae normal Pupils: PERRL, normal by confrontation and accommodation normal EOM: EOM intact bilaterally Neck Neck: normal visual inspection, trachea midline and no JVD JVD: +5 Carotids: normal carotid upstroke and bounding pulses Chest Chest inspection: normal inspection of the chest, symmetric chest movement and normal respiratory effort Auscultation: Bilateral: Clear to Auscultation Cardio Palpation: normal PMI Rate: regular rate Rhythm: regular rhythm Heart sounds: S1 normal, S2 normal and normal, physiologic split S2; Negative rub, gallop or murmur GI GI: normal to inspection, soft, no hepatosplenomegaly and bowel sounds present Neuro General: patient alert, patient awake, patient oriented x3, gait normal, moves all extremities and no focal sensory deficit Skin Skin: no rashes or lesions noted Extremities Pulses: Normal: Right Femoral Pulse, Left Femoral Pulse, Right Dorsalis Pedis Pulse, Left Dorsalis Pedis Pulse, Right Posterior Tibial (more content not included)... Normal [facility] Pacemaker Checkon 09-12-2024 Pacemaker Check [facility] [address] [place] [address] Pacemaker Check Date of Service: 09/12/24 1640 MR#: [id number] Acct: [id number] Name: ROSIEDEMARIO R Rep #: [id number] : 1960 From: Gia Silverman Age/Sex: 64/F Location: [facility] Status: Signed Billing Codes PM Device Codes: 98904 PM Dev Prog Eval, Dual Assessment and Plan Assessment and Plan (1) Complete heart block: Status: Chronic (2) History of permanent cardiac pacemaker placement: Status: Chronic Comment: July 2005, gen change 03/05/12 09/12/24 1641 Date Gia Mirza Signature: Date (if applicable) CC: Normal [facility] Pacemaker Checkon 05-22-2024 Pacemaker Check [facility] [address] [place] [address] Pacemaker Check Date of Service: 05/22/24 1700 MR#: [id number] Acct: [id number] Name: DEMARIO VELEZ Rep #: [id number] : 1960 From: Gia Silverman Age/Sex: 63/F Location: [facility] Status: Signed Billing Codes PM Device Codes: 35523 PM Dev Prog Eval, Dual Assessment and Plan Assessment and Plan (1) History of permanent cardiac pacemaker placement: Status: Chronic Comment: July 2005, gen change 03/05/12 (2) Complete heart block: Status: Chronic 05/22/24 1700 Date Gia Mirza Signature: Date (if applicable) CC: Normal [facility] BASIC METABOLIC PANELon BUN/CREATININE RATIO SEE NOTE: Normal 6-22 [facility] Comment on above: Result Comment: Not Reported: BUN and Creatinine are within reference range. Performed By: #### 1 0165, 7600 #### [facility] [place] [address] Durable Medical Equipment Technician: Pablito Salazar MD Calcium [Mass/Vol] 10.1 mg/dL Normal 8.6-10.4 [facility] Comment on above: Performed By: #### 1 0165, 7600 #### [facility] [place] [address] Durable Medical Equipment Technician: Pablito Salazar MD Chloride [Moles/Vol] 103 mmol/L Normal 98-110 [facility] Comment on above: Performed By: #### 1 0165, 7600 #### [facility] [place] [address] Durable Medical Equipment Technician: Pablito Salazar MD CO2 [Moles/Vol] 28 mmol/L Normal 20-32 [facility] Comment on above: Performed By: #### 1 0165, 7600 #### [facility] [place] [address] Durable Medical Equipment Technician: Pablito Salazar MD Creatinine [Mass/Vol] 0.89 mg/dL Normal 0.50-1.[address] [facility] Comment on above: Performed By: #### 1 016, 7600 #### [facility] [address], [address] [place] [address] Durable Medical Equipment Technician: Pablito Salazar MD GFR/1.73 sq M.predicted among non-blacks MDRD (S/P/Bld) [Vol rate/Area] 73 mL/min/{1.73_m2} Normal > OR = 60 [facility] Comment on above: Performed By: #### 1 016, 7600 #### [facility] [address], [address] [place] [address] Durable Medical Equipment Technician: Pabilto Salazar MD Glucose [Mass/Vol] 92 mg/dL Normal 65-99 [facility] Comment on above: Result Comment: Fasting reference interval Performed By: #### 1 016, 7600 #### [facility] [place] [address] Durable Medical Equipment Technician: Pablito Salazar MD Potassium [Moles/Vol] 4.3 mmol/L Normal 3.5-5.[address] [facility] Comment on above: Performed By: #### 1 016, 0 #### [facility] [place] [address] Durable Medical Equipment Technician: Pablito Salazar MD Sodium [Moles/Vol] 140 mmol/L Normal 135-146 [facility] Comment on above: Performed By: #### 1 016, 7600 #### [facility] [place] [address] Durable Medical Equipment Technician: Pablito Salazar MD Urea nitrogen [Mass/Vol] 16 mg/dL Normal 7-25 [facility] Comment on above: Performed By: #### 1 0165, 7600 #### [facility] [place] [address] Durable Medical Equipment Technician: Pablito Salazar MD LIPID PANEL, STANDARD 10-0 Cholesterol [Mass/Vol] 213 mg/dL High <200 [facility] Comment on above: Performed By: #### 1 0165, 7600 #### [facility] [place] [address], [address] [place] [address] Durable Medical Equipment Technician: Pablito Salazar MD Cholesterol in HDL [Mass/Vol] 62 mg/dL Normal > OR = 50 [facility] Comment on above: Performed By: #### 1 0165, 7600 #### [facility] [address], [address] [place] [address] Durable Medical Equipment Technician: Pablito Salazar MD Cholesterol in LDL [Mass/Vol] 128 mg/dL High [facility] Comment on above: Result Comment: Refe rence range: <100 Desirable range <100 mg/dL for primary prevention; <70 mg/dL for patients with CHD or diabetic patients with > or = 2 CHD risk factors. LDL-C is now calculated using the El calculation, which is a validated novel method providing better accuracy than the Friedewald equation in the estimation of LDL-C. Arron SS et al. AR. 2013;310(19): 6539-4915 (http://education.Guavas.WigWag/faq/NDQ238) Performed By: #### 1 016, 7600 #### [facility] [address], [address] [place] [address] Durable Medical Equipment Technician: Pablito Salazar MD Cholesterol.total/Joy sterol in HDL [Mass ratio] 3.4 {ratio} Normal <5.0 [facility] Comment on above: Performed By: #### 1 016, 7600 #### [facility] [address], [address] [place] [address] Durable Medical Equipment Technician: Pablito Salazar MD NON HDL CHOLESTEROL 151 mg/dL (calc) High <130 [facility] Comment on above: Result Comment: For patients with diabetes plus 1 major ASCVD risk factor, treating to a non-HDL-C goal of <100 mg/dL (LDL-C of <70 mg/dL) is considered a therapeutic option. Performed By: #### 1 0165, 7600 #### [facility] [address], [address] [place] [address] Durable Medical Equipment Technician: Pablito Salazar MD Triglyceride [Mass/Vol] 118 mg/dL Normal <150 Q uest Diagn[facility] Comment on above: Performed By: #### 1 5195, 5350 #### [facility] [address] [place] [address], [address] [place] [address] Durable Medical Equipment Technician: Pablito Salazar MD Laboratory - Chemistry and C hemistry - challengeon 05-14-2024 Calcium [Mass/Vol] 10.1 mg/dL Normal 8.6 - 10. 4 mg/dL [facility] [employer] Chloride [Moles/Vol] 103 mmol/L Normal 98 - 11 0 mmol/L [place] [employer] Cholesterol [Mass/Vol] 213 mg/dL Abnormal [facility], [facility].; [employer] Cholesterol in HDL [Mass/Vol] 62 mg/dL Normal [facility] [employer] Cholesterol in LDL [Mass/Vol] 128 mg/dL Abnormal [facility] [employer] CO2 [Moles/Vol] 28 mmol/L Normal 20 - 32 mmol/L [facility] [employer] Creatinine [Mass/Vol] 0.89 mg/dL Normal 0.50 - 1.05 mg/dL [facility] [employer] GFR/1.73 sq M.predicted among non-blacks MDRD (S/P/Bld) [Vol rate/Area] 73 mL/min/{1.73_m2} Normal [facility] [employer] Glucose [Mass/Vol] 92 mg/dL Normal 65 - 99 mg/dL [facility] [employer] Potassium [Moles/Vol] 4.3 mmol/L Normal 3.5 - 5.3 mmol/L [facility] [employer] Sodium [Moles/Vol] 140 mmol/L Normal 135 - 146 mmol/L [facility] [employer] Triglyceride [Mass/Vol] 118 mg/dL Normal [facility], [facility].; [employer] Urea nitrogen [Mass/Vol] 16 mg/dL Normal 7 - 25 mg/dL [facility].; [facility], [facility] No Panel Informationon 05-14 BUN/CREATININE RATIO SEE NOTE: Normal 6 - 22 [facility], [facility]. CHOL/HDLC RATIO 3.4 Normal [facility]; [facility], [facility] NON HDL CHOLESTEROL 151 Abnormal [facility]; [facility], [facility] 3D MAMM BILAT SCREENon 05-09 3D MAMM BILAT SCREEN [place] [id number] Patient: DEMARIO VELEZ Phone#: : 1960 Age: 63 Gender: F Pt. Type: Out Account: [id number] Location: Ordering: TIARRA CEDENO Exam Date: 05/09/2024/14:55 Family Phys: Charge Code: [id number] Physician: Pima Order #: [id number] Dose#: PROCEDURE: BILATERAL SCREENING BREAST TOMOSYNTHESIS MAMMOGRAM WITH CAD COMPARISON: [facility], 3D BILAT SCREEN, 05/30/2022, 11:09. [facility], 3D BILAT SCREEN, 05/15/2023, 11:04. INDICATIONS: Screening. BREAST COMPOSITION: Scattered areas fibroglandular density. FINDINGS: DIAGNOSTIC CATEGORY 1--NEGATIVE: RIGHT BREAST: No significant suspicious finding. No significant change has occurred. LEFT BREAST: No significant suspicious finding. No significant change has occurred. RECOMMENDATIONS: ROUTINE MAMMOGRAM AND CLINICAL EVALUATION IN 12 MONTHS. PLEASE NOTE: A NORMAL MAMMOGRAM DOES NOT EXCLUDE THE POSSIBILITY OF BREAST CANCER. A CLINICALLY SUSPICIOUS PALPABLE LUMP SHOULD BE BIOPSIED. THIS FACILITY UTILIZES A REMINDER SYSTEM TO ENSURE THAT ALL PATIENTS RECEIVE REMINDER LETTERS FOR APPOINTMENTS. THIS INCLUDES REMINDERS FOR ROUTINE MAMMOGRAMS, DIAGNOSITC MAMMOGRAMS, OR OTHER BREAST IMAGING INTERVENTIONS WHEN APPROPRIATE. THIS PATIENT WILL BE PLACED IN THE APPROPRIATE REMINDER SYSTEM. Dictated by: Dominique Schneider MD on 05/09/2024 at 16:32 Approved by: Dominique Schneider MD on 05/09/2024 at 16:40 Normal [facility] 3D MAMM BILAT SCREENon 05-15 3D MAMM BILAT SCREEN [place] [address] Patient: DEMARIO VELEZ Phone#: : 1960 Age: 62 Gender: F Pt. Type: Out Account: [id number] Location: Ordering: TIARRA TERRIRAYNE Exam Date: 05/15/2023/11:04 Family Phys: Charge Code: [id number] Physician: Pima Order #: [id number] Dose#: PROCEDURE: BILATERAL SCREENING BREAST TOMOSYNTHESIS MAMMOGRAM WITH CAD COMPARISON: [facility], 3D BILAT SCREEN, 05/31/2021, 11:15. [facility], 3D BILAT SCREEN, 05/30/2022, 11:09. INDICATIONS: Screening. BREAST COMPOSITION: Scattered areas fibroglandular density. FINDINGS: DIAGNOSTIC CATEGORY 1--NEGATIVE NO CHANGE FROM COMPARISON ASSESSMENT. RIGHT BREAST: No significant suspicious finding. No significant change has occurred. LEFT BREAST: No significant suspicious finding. No significant change has occurred. RECOMMENDATIONS: ROUTINE MAMMOGRAM AND CLINICAL EVALUATION IN 12 MONTHS. PLEASE NOTE: A NORMAL MAMMOGRAM DOES NOT EXCLUDE THE POSSIBILITY OF BREAST CANCER. A CLINICALLY SUSPICIOUS PALPABLE LUMP SHOULD BE BIOPSIED. THIS FACILITY UTILIZES A REMINDER SYSTEM TO ENSURE THAT ALL PATIENTS RECEIVE REMINDER LETTERS FOR APPOINTMENTS. THIS INCLUDES REMINDERS FOR ROUTINE MAMMOGRAMS, DIAGNOSITC MAMMOGRAMS, OR OTHER BREAST IMAGING INTERVENTIONS WHEN APPROPRIATE. THIS PATIENT WILL BE PLACED IN THE APPROPRIATE REMINDER SYSTEM. Dictated by: Priyanka Chamorro MD on 05/15/2023 at 12:33 Approved by: Priyanka Chamorro MD on 05/15/2023 at 12:37 Normal [facility] Laboratory - Chemistry and C hemistry - challengeon 05-15-2023 Albumin [Mass/Vol] 4.3 g/dL Normal 3.6 - 5.1 g/dL [facility], [facility].; [facility] Albumin/Globulin [Mass ratio] 1.7 {ratio} Normal 1.0 - 2.5 [facility], [facility].; [facility], [facility]. ALP [Catalytic activity/Vol] 71 U/L Normal 37 - 153 U/L [facility], [facility].; [facility], [facility]. ALT [Catalytic activity/Vol] 16 U/L Normal 6 - 29 U/L [facility], [facility].; [facility], [facility]. AST [Catalytic activity/Vol] 19 U/L Normal 10 - 35 U/L [facility].; [facility], [facility]. Bilirubin [Mass/Vol] 0.4 mg/dL Normal 0.2 - 1 .2 mg/dL [facility], [facility].; [facility], [facility]. Calcium [Mass/Vol] 9.7 mg/dL Normal 8.6 - 10. 4 mg/dL [facility].; [facility], [facility]. Chloride [Moles/Vol] 107 mmol/L Normal 98 - 11 0 mmol/L [facility], [facility].; [facility], [facility]. Cholesterol [Mass/Vol] 186 mg/dL Normal [facility].; [facility], [facility] Cholesterol in HDL [Mass/Vol] 64 mg/dL Normal [facility], [facility].; [facility], [facility]. Cholesterol in LDL [Mass/Vol] 103 mg/dL Abnormal [facility].; [facility], [facility]. CO2 [Moles/Vol] 28 mmol/L Normal 20 - 32 mmol/L [facility], [facility].; [facility], [facility]. Creatinine [Mass/Vol] 0.88 mg/dL Normal 0.50 - 1.05 mg/dL [facility], [facility].; [facility], [facility]. GFR/1.73 sq M.predicted among non-blacks MDRD (S/P/Bld) [Vol rate/Area] 75 mL/min/{1.73_m2} Normal [facility], [facility].; [facility], [facility]. Glucose [Mass/Vol] 101 mg/dL Abnormal 65 - 99 mg/dL [facility], [facility].; [facility], [facility]. Potassium [Moles/Vol] 4.2 mmol/L Normal 3.5 - 5.3 mmol/L [facility].; [facility]. Protein [Mass/Vol] 6.9 g/dL Normal 6.1 - 8.1 g/dL [facility].; [facility], [facility]. Sodium [Moles/Vol] 141 mmol/L Normal 135 - 146 mmol/L [facility].; [facility], [facility]. Triglyceride [Mass/Vol] 96 mg/dL Normal [facility].; [facility], [facility] Urea nitrogen [Mass/Vol] 18 mg/dL Normal 7 - 25 mg/dL [facility].; [facility] [employer], [facility]. Laboratory - Hematology and Cell countson 05-15-2023 Basophils (Bld) [#/Vol] 0.04 10*3/uL Normal 0 - 200 {cells/uL} [facility].; [facility] [employer], [facility]. Basophils/100 WBC (Bld) 0.8 % Normal [facility].; [facility], [facility] Eosinophils (Bld) [#/Vol] 0.04 10*3/uL Normal 15 - 500 {cells/uL} [facility].; [facility] [employer], [facility]. Eosinophils/100 WBC (Bld) 0.8 % Normal [facility].; [place] [employer], [facility]. Erythrocyte distribution width (RBC) [Ratio] 12.0 % Normal 11.0 - 15.0 % [facility].; [place] [employer], [facility]. Hematocrit (Bld) [Volume fraction] 40.6 % Normal 35.0 - 45.0 % [facility].; [place] [employer], [facility]. Hemoglobin (Bld) [Mass/Vol] 13.8 g/dL Normal 11.7 - 15.5 g/dL [facility].; [facility], [facility]. Lymphocytes (Bld) [#/Vol] 1.035 10*3/uL Normal 850 - 3900 {cells/uL} [facility].; [place] [employer], [facility]. Lymphocytes/100 WBC (Bld) 20.7 % Normal [facility].; [place] [employer], [employer]. MCH (RBC) [Entitic mass] 31.0 pg Normal 27.0 - 33.0 pg [facility].; [place] [employer], [facility]. MCHC (RBC) [Mass/Vol] 34.0 g/dL Normal 32.0 - 36.0 g/dL [facility], [facility].; [place] [employer] MCV (RBC) [Entitic vol] 91.2 fL Normal 80.0 - 100.0 fL [facility], [facility].; [facility] Monocytes (Bld) [#/Vol] 0.39 10*3/uL Normal 200 - 950 {cells/uL} [facility], [facility].; [place] Monocytes/100 WBC (Bld) 7.8 % Normal [facility].; [facility], [facility]. Neutrophils (Bld) [#/Vol] 3.495 10*3/uL Normal 1500 - 7800 {cells/uL} [facility], [facility].; [place] Neutrophils/100 WBC (Bld) 69.9 % Normal [facility].; [facility] Platelet mean volume (Bld) [Entitic vol] 10.3 fL Normal 7.5 - 12.5 fL [facility] [employer], [facility].; [place] Platelets (Bld) [#/Vol] 254 10*3/uL Normal 140 - 400 [facility].; [place] RBC (Bld) [#/Vol] 4.45 10*6/uL Normal 3.80 - 5.1 0 {Million/uL } [facility], [facility].; [place] [employer] WBC (Bld) [#/Vol] 5.0 10*3/uL Normal 3.8 - 10.8 [facility] [employer] [facility].; [place] [employer], [facility]. No Panel Informationon 05-15 BUN/CREATININE RATIO SEE NOTE: Normal 6 - 22 [facility].; [facility] [employer] CHOL/HDLC RATIO 2.9 Normal [facility], [facility].; [place] GLOBULIN 2.6 Normal 1.9 - 3.7 [facility], [facility].; [facility] NON HDL CHOLESTEROL 122 Normal [facility].; [facility], [facility]. Laboratory - Chemistry and C hemistry - challengeon 05-30-2022 Calcium [Mass/Vol] 9.9 mg/dL Normal 8.6 - 10. 4 mg/dL [facility], [facility].; [facility], [facility]. Chloride [Moles/Vol] 105 mmol/L Normal 98 - 11 0 mmol/L [facility], [facility].; [facility], [facility]. Cholesterol [Mass/Vol] 213 mg/dL Abnormal [facility].; [facility], [facility] Cholesterol in HDL [Mass/Vol] 63 mg/dL Normal [facility], [facility].; [facility], [facility] Cholesterol in LDL [Mass/Vol] 127 mg/dL Abnormal [facility].; [facility], [facility]. CO2 [Moles/Vol] 28 mmol/L Normal 20 - 32 mmol/L [facility], [facility].; [facility], [facility]. Creatinine [Mass/Vol] 0.82 mg/dL Normal 0.50 - 1.05 mg/dL [facility], [facility].; [facility] [employer], [facility]. GFR/1.73 sq M.predicted among non-blacks MDRD (S/P/Bld) [Vol rate/Area] 82 mL/min/{1.73_m2} Normal [facility], [facility].; [facility] [facility] [employer] Glucose [Mass/Vol] 90 mg/dL Normal 65 - 99 mg/dL [facility], [facility].; [facility], [facility]. Potassium [Moles/Vol] 4.2 mmol/L Normal 3.5 - 5.3 mmol/L [facility], [facility].; [place] [employer] Sodium [Moles/Vol] 140 mmol/L Normal 135 - 146 mmol/L [facility], [facility].; [facility] [employer], [facility]. Triglyceride [Mass/Vol] 115 mg/dL Normal [facility].; [facility], [facility]. Urea nitrogen [Mass/Vol] 16 mg/dL Normal 7 - 25 mg/dL [facility], [facility].; [facility] [employer], [facility]. Laboratory - Hematology and Cell countson 05-30-2022 Basophils (Bld) [#/Vol] 0.039 10*3/uL Normal 0 - 200 {cells/uL} [facility].; [facility] [employer], [facility]. Basophils/100 WBC (Bld) 0.8 % Normal [facility].; [facility], [facility] Eosinophils (Bld) [#/Vol] 0.069 10*3/uL Normal 15 - 500 {cells/uL} [facility], [facility].; [facility], [facility] Eosinophils/100 WBC (Bld) 1.4 % Normal [facility].; [facility], [facility] Erythrocyte distribution width (RBC) [Ratio] 12.1 % Normal 11.0 - 15.0 % [facility].; [facility], [facility] Hematocrit (Bld) [Volume fraction] 40.1 % Normal 35.0 - 45.0 % [facility], [facility].; [facility], [facility] Hemoglobin (Bld) [Mass/Vol] 13.6 g/dL Normal 11.7 - 15.5 g/dL [facility].; [facility], [facility] Lymphocytes (Bld) [#/Vol] 1.264 10*3/uL Normal 850 - 3900 {cells/uL} [facility].; [facility] [employer], [facility]. Lymphocytes/100 WBC (Bld) 25.8 % Normal [facility].; [facility] [employer], [facility]. MCH (RBC) [Entitic mass] 30.0 pg Normal 27.0 - 33.0 pg [facility].; [facility] [employer], [facility]. MCHC (RBC) [Mass/Vol] 33.9 g/dL Normal 32.0 - 36.0 g/dL [facility].; [facility] [employer], [facility]. MCV (RBC) [Entitic vol] 88.5 fL Normal 80.0 - 100.0 fL [facility].; [facility], [facility]. Monocytes (Bld) [#/Vol] 0.475 10*3/uL Normal 200 - 950 {cells/uL} [facility], [facility].; [facility] [employer], [facility]. Monocytes/100 WBC (Bld) 9.7 % Normal [facility].; [facility] Neutrophils (Bld) [#/Vol] 3.053 10*3/uL Normal 1500 - 7800 {cells/uL} [facility].; [facility] Neutrophils/100 WBC (Bld) 62.3 % Normal [facility].; [facility], [facility]. Platelet mean volume (Bld) [Entitic vol] 9.8 fL Normal 7.5 - 12.5 fL [facility]; [facility] Platelets (Bld) [#/Vol] 265 10*3/uL Normal 140 - 400 [facility]; [facility], [facility]. RBC (Bld) [#/Vol] 4.53 10*6/uL Normal 3.80 - 5.1 0 {Million/uL } [facility].; [facility], [facility]. WBC (Bld) [#/Vol] 4.9 10*3/uL Normal 3.8 - 10.8 [facility].; [facility]. No Panel Informationon 05-30 BUN/CREATININE RATIO NOT APPLICABLE Normal 6 - 22 [facility].; [facility], [facility]. CHOL/HDLC RATIO 3.4 Normal [facility], [facility] NON HDL CHOLESTEROL 150 Abnormal [facility].; [facility], [facility]. No Panel Informationon 06-30 [id number] SEE NOTE Normal [facility].; [facility]. CLINICAL INFORMATION: SEE NOTE Normal [facility] COMMENT: SEE NOTE Normal [facility].; [facility], [facility]. CARRIAGE OPERATOR: SEE NOTE Normal [facility].; [facility], [facility]. INTERPRETATION/RESULT: SEE NOTE Normal [facility].; [facility] [employer] [facility] LMP: SEE NOTE Normal [facility], [facility].; [facility] [employer] [facility] PREV. BX: SEE NOTE Normal [facility], [facility].; [facility] PREV. PAP: SEE NOTE Normal [facility], [facility].; [facility], [facility]. REVIEW CARRIAGE OPERATOR: SEE NOTE Normal [facility].; [place] [employer], [employer]. SOURCE: SEE NOTE Normal [facility].; [place] [employer] STATEMENT OF ADEQUACY: SEE NOTE Normal [facility].; [place] [employer] Laboratory - Chemistry and C hemistry - challengeon 06-21-2021 Albumin [Mass/Vol] 4.3 g/dL Normal 3.6 - 5.1 g/dL [facility].; [place], [employer]. Albumin/Globulin [Mass ratio] 1.6 {ratio} Normal 1.0 - 2.5 [facility].; [place] [employer] ALP [Catalytic activity/Vol] 84 U/L Normal 37 - 153 U/L [facility].; [place] [employer], [employer]. ALT [Catalytic activity/Vol] 21 U/L Normal 6 - 29 U/L [facility].; [place] [employer], [employer]. AST [Catalytic activity/Vol] 21 U/L Normal 10 - 35 U/L [facility].; [employer], [employer]. Bilirubin [Mass/Vol] 0.4 mg/dL Normal 0.2 - 1 .2 mg/dL [facility].; [employer], [employer]. Calcium [Mass/Vol] 10.0 mg/dL Normal 8.6 - 10. 4 mg/dL [facility].; [employer], [employer]. Chloride [Moles/Vol] 104 mmol/L Normal 98 - 11 0 mmol/L [facility].; [employer], [employer]. Cholesterol [Mass/Vol] 193 mg/dL Normal [facility].; [place] [employer], [employer]. Cholesterol in HDL [Mass/Vol] 59 mg/dL Normal [facility] [employer] [facility].; [place] [employer], [employer]. Cholesterol in LDL [Mass/Vol] 112 mg/dL Abnormal [facility] [employer] [facility].; [employer] CO2 [Moles/Vol] 28 mmol/L Normal 20 - 32 mmol/L [facility].; [employer], [employer]. Creatinine [Mass/Vol] 0.89 mg/dL Normal 0.50 - 0.99 mg/dL [facility], [facility].; [facility], [facility]. GFR/1.73 sq M.predicted among blacks MDRD (S/P/Bld) [Vol rate/Area] 82 mL/min/{1.73_m2} Normal [facility], [facility].; [facility], [facility]. Glucose [Mass/Vol] 88 mg/dL Normal 65 - 99 mg/dL [facility], [facility].; [facility], [facility]. Potassium [Moles/Vol] 4.1 mmol/L Normal 3.5 - 5.3 mmol/L [facility], [facility].; [facility], [facility]. Protein [Mass/Vol] 7.0 g/dL Normal 6.1 - 8.1 g/dL [facility], [facility].; [facility] [employer] Sodium [Moles/Vol] 140 mmol/L Normal 135 - 146 mmol/L [facility], [facility].; [facility], [facility]. Triglyceride [Mass/Vol] 116 mg/dL Normal [facility].; [facility] Company, [facility]. Urea nitrogen [Mass/Vol] 17 mg/dL Normal 7 - 25 mg/dL [facility].; [place] [employer], [employer]. Laboratory - Hematology and Cell countson 06-21-2021 Basophils (Bld) [#/Vol] 0.032 10*3/uL Normal 0 - 200 {cells/uL} [facility], [facility].; [place] [employer] Basophils/100 WBC (Bld) 0.7 % Normal [facility].; [place] [employer] [facility], [facility]. Eosinophils (Bld) [#/Vol] 0.06 10*3/uL Normal 15 - 500 {cells/uL} [facility].; [place] [employer], [facility]. Eosinophils/100 WBC (Bld) 1.3 % Normal [facility].; [place] [employer], [facility]. Erythrocyte distribution width (RBC) [Ratio] 12.6 % Normal 11.0 - 15.0 % [facility], [facility].; [place] [employer] Hematocrit (Bld) [Volume fraction] 40.9 % Normal 35.0 - 45.0 % [facility].; [facility], [facility]. Hemoglobin (Bld) [Mass/Vol] 13.5 g/dL Normal 11.7 - 15.5 g/dL [facility].; [facility], [facility]. Lymphocytes (Bld) [#/Vol] 1.288 10*3/uL Normal 850 - 3900 {cells/uL} [facility], [facility].; [facility], [facility]. Lymphocytes/100 WBC (Bld) 28.0 % Normal [facility].; [facility], [facility]. MCH (RBC) [Entitic mass] 30.1 pg Normal 27.0 - 33.0 pg [facility], [facility].; [facility], [facility]. MCHC (RBC) [Mass/Vol] 33.0 g/dL Normal 32.0 - 36.0 g/dL [facility], [facility].; [place] [employer], [facility]. MCV (RBC) [Entitic vol] 91.3 fL Normal 80.0 - 100.0 fL [facility].; [facility], [facility]. Monocytes (Bld) [#/Vol] 0.373 10*3/uL Normal 200 - 950 {cells/uL} [facility], [facility].; [place] [employer], [facility]. Monocytes/100 WBC (Bld) 8.1 % Normal [facility].; [place] [employer] [facility], [facility]. Neutrophils (Bld) [#/Vol] 2.847 10*3/uL Normal 1500 - 7800 {cells/uL} [facility], [facility].; [place] [employer] Neutrophils/100 WBC (Bld) 61.9 % Normal [facility].; [place], [facility]. Platelet mean volume (Bld) [Entitic vol] 10.5 fL Normal 7.5 - 12.5 fL [facility], [facility].; [place], [facility]. Platelets (Bld) [#/Vol] 252 10*3/uL Normal 140 - 400 [facility], [facility].; [place] [employer], [facility]. RBC (Bld) [#/Vol] 4.48 10*6/uL Normal 3.80 - 5.1 0 {Million/uL } [place] [employer] [facility], [facility].; [place] [employer]. WBC (Bld) [#/Vol] 4.6 10*3/uL Normal 3.8 - 10.8 [facility].; [place] [employer] [facility] No Panel Informationon 06-21 BUN/CREATININE RATIO NOT APPLICABLE Normal 6 - 22 [facility]; [place] [employer] CHOL/HDLC RATIO 3.3 Normal [facility]; [facility] eGFR NON-AFR. COOK ISLANDER [address] [facility]; [facility] GLOBULIN 2.7 Normal 1.9 - 3.7 [facility]; [place] [employer] [facility] NON HDL CHOLESTEROL 134 Abnormal [facility]; [place] [employer] [facility] TSH W/REFLEX TO FT4 2.52 {mIU/L} Normal 0.40 - 4 .50 {mIU/L} [facility].; [place] [employer] [facility] Laboratory - Chemistry and C hemistry - challengeon 05-21-2019 Calcium [Mass/Vol] 10.0 mg/dL Normal 8.6 - 10. 4 mg/dL [facility].; [place] [employer] [facility] Chloride [Moles/Vol] 104 mmol/L Normal 98 - 11 0 mmol/L [facility].; [place] [employer], [employer]. Cholesterol [Mass/Vol] 175 mg/dL Normal [facility]; [place] [employer] [facility] Cholesterol in HDL [Mass/Vol] 56 mg/dL Normal [facility].; [place] [employer] Cholesterol in LDL [Mass/Vol] 100 mg/dL Normal 0 - 100 mg/dL [facility].; [employer] Cholesterol non HDL [Mass/Vol] 119 mg/dL Normal [place] [employer] [facility].; [employer] [facility]. Cholesterol.total/Joy sterol in HDL [Mass ratio] 3.1 {ratio} Normal [facility].; [employer] CO2 [Moles/Vol] 30 mmol/L Normal 20 - 32 mmol/L [facility].; [place] [employer]. Creatinine [Mass/Vol] 0.93 mg/dL Normal 0.50 - 1.05 mg/dL [place] [employer].; [employer], [employer]. GFR/1.73 sq M.predicted among blacks MDRD (S/P/Bld) [Vol rate/Area] 79 {ML/MIN/1.73M2} Normal [employer], [employer]. GFR/1.73 sq M.predicted MDRD (S/P/Bld) [Vol rate/Area] 68 {ML/MIN/1.73M2} Normal [employer].; [employer], [employer]. Glucose [Mass/Vol] 92 mg/dL Normal 65 - 99 mg/dL [employer].; [employer], [employer]. Potassium [Moles/Vol] 4.0 mmol/L Normal 3.5 - 5.3 mmol/L [employer].; [employer], [employer]. Sodium [Moles/Vol] 139 mmol/L Normal 135 - 146 mmol/L [employer].; [employer], [employer]. Triglyceride [Mass/Vol] 101 mg/dL Normal H [employer].; [employer], [employer]. Urea nitrogen [Mass/Vol] 16 mg/dL Normal 7 - 25 mg/dL [employer].; [employer], [employer]. Urea nitrogen/Creatinine [Mass ratio] 17.5 mg/mg Normal 6 - 22 [employer].; [employer], [employer]. Laboratory - Hematology and Cell countson 05-21-2019 Basophils (Bld) [#/Vol] 30 {Cells}/uL Normal 0 - 200 {Cells}/uL [employer].; [employer]. Basophils/100 WBC (Bld) 0.6 % Normal 0 - 1 % H [employer].; [employer], [employer]. Eosinophils (Bld) [#/Vol] 40 {Cells}/uL Normal 15 - 500 {Cells}/uL [employer].; [employer], [employer]. Eosinophils/100 WBC (Bld) 0.8 % Normal 0 - 4 % [employer].; [employer], [employer]. Erythrocyte distribution width (RBC) [Ratio] 12.4 % Normal 11.0 - 15.0 % [facility], [facility].; [facility], [facility]. Hematocrit (Bld) [Volume fraction] 39.4 % Normal 35.0 - 45.0 % [facility], [facility].; [facility], [facility] Hemoglobin (Bld) [Mass/Vol] 13.5 g/dL Normal 11.7 - 15.5 g/dL [facility], [facility].; [facility], [facility]. Lymphocytes (Bld) [#/Vol] 1320 {Cells}/uL Normal 850 - 3900 {Cells}/uL [facility], [facility].; [facility], [facility]. Lymphocytes/100 WBC (Bld) 27.3 % Normal 12 - 47 % [facility].; [facility], [facility]. MCH (RBC) [Entitic mass] 30.3 pg Normal 27.0 - 33.0 PG [facility], [facility].; [facility], [facility]. MCHC (RBC) [Mass/Vol] 34.3 g/dL Normal 32.0 - 36.0 g/dL [facility].; [facility], [facility]. MCV (RBC) [Entitic vol] 88.3 fL Normal 80.0 - 100.0 fL [facility], [facility].; [facility], [facility]. Monocytes (Bld) [#/Vol] 480 {Cells}/uL Normal 20 0 - 950 {Cells}/uL [facility], [facility].; [place] [employer], [facility]. Monocytes/100 WBC (Bld) 9.9 % Normal 4 - 12 % [facility].; [facility], [facility]. Neutrophils (Bld) [#/Vol] 2960 {Cells}/uL Normal 1500 - 7800 {Cells}/uL [facility].; [facility] [employer], [facility]. Neutrophils/100 WBC (Bld) 61.4 % Normal 40 - 75 % [facility], [facility].; [place] [employer] [facility], [facility]. Platelet mean volume (Bld) [Entitic vol] 10.8 fL Normal 7.5 - 12.5 fL [facility].; [facility] [employer], [facility]. Platelets (Bld) [#/Vol] 237 10*3/uL Normal 140 - 400 10*3/uL [employer].; [employer]. RBC (Bld) [#/Vol] 4.46 10*6/uL Normal 3.80 - 5.1 0 10*6/uL [employer].; [employer]. WBC (Bld) [#/Vol] 4.8 10*3/uL Normal 3.8 - 10.8 10*3/uL [employer].; [employer]. Clinical Lists Update: Prelo division director 06-09-2017 Erythrocyte distribution width Auto Ratio (RBC) 12.9 % Invalid Interpretation Code [facility] [employer] Work Phone: [phone] Erythrocytes (RBC) 4.36 10*6/uL Invalid Interpretation Code [facility] [employer] Work Phone: [phone] Hematocrit (HCT) 39.3 % Invalid Interpretation Code [facility] [employer] Work Phone: [phone] MCH 30.7 pg Invalid Interpretation Code [facility] [employer] Work Phone: [phone] MCHC mass conc (RBC) 34.1 g/dL Invalid Interpretation Code [facility] Work Phone: [phone] MCV 90.1 fL Invalid Interpretation Code [facility] Work Phone: [phone] Platelets 219 10*3/mm3 Invalid Interpretation Code [facility] Work Phone: [phone] PMV by Jesus 9.2 fL Invalid Interpretation Code [facility] Work Phone: [phone] Thyroid stimulating hormone (TSH) 1.73 u[iU]/mL Invalid Interpretation Code [facility] Work Phone: [phone] WBC (Leukocytes) 4.4 10*3/uL Invalid Interpretation Code [facility] Work Phone: [phone] BUN/Creatinine Ratio 28.6 mg/mg Abnormal 6 - [address] [facility] [address] [facility] [employer] Work Phone: [phone] Calcium 9.7 mg/dL Normal 8.6 - 10.4 mg/dL [facility] [employer] Work Phone: [phone] Chloride 103 mmol/L Normal 98 - 110 mmol/L [facility] [employer] Work Phone: [phone] Cholesterol 186 mg/dL Normal [facility] Work Phone: [phone] Cholesterol to HDL Ratio 2.9 {ratio} Normal [facility] Work Phone: [phone] CO2 29 mmol/L Normal 20 - 31 mmol/L [facility] Work Phone: [phone] Creatinine 0.85 mg/dL Normal 0.50 - 1.05 mg/dL [facility] Work Phone: [phone] Glucose mass conc 89 mg/dL Normal 65 - 99 mg/dL [facility] Work Phone: [phone] HDL Cholesterol 64 mg/dL Normal [facility] Work Phone: [phone] Hemoglobin mass conc (Bld) 13.4 g/dL Normal 11.7 - 15.5 g/dL [facility] Work Phone: [phone] LDL Cholesterol 107 mg/dL Abnormal [facility] Work Phone: [phone] Potassium molar conc 4.1 mmol/L Normal 3.5 - 5 .3 mmol/L [facility] Work Phone: [phone] Sodium 138 mmol/L Normal 135 - 146 mmol/L [facility] Work Phone: [phone] Triglyceride 65 mg/dL Normal [facility] Work Phone: [phone] Urea nitrogen 24 mg/dL Normal 7 - 25 mg/dL [facility] Work Phone: [phone] Laboratory - Chemistry and C hemistry - challengeon 06-09-2017 Cholesterol non HDL [Mass/Vol] 123 mg/dL Normal [employer] [facility], [facility].; [employer], [facility]. GFR/1.73 sq M.predicted among blacks MDRD (S/P/Bld) [Vol rate/Area] 89 {ML/MIN/1.73M2} Normal [employer], [facility].; [employer], [facility]. GFR/1.73 sq M.predicted MDRD (S/P/Bld) [Vol rate/Area] 77 {ML/MIN/1.73M2} Normal [employer], [employer].; [employer], [facility]. TSH Qn 1.73 m[IU]/L Normal 0.40 - 4.50 {mIU/L} [place] [employer].; [employer]. Laboratory - Hematology and Cell countson 06-09-2017 Basophils (Bld) [#/Vol] 20 {Cells}/uL Normal 0 - 200 {Cells}/uL [facility] [employer].; [employer] Basophils/100 WBC (Bld) 0 % Normal 0 - 1 % [facility].; [place] [employer] [facility]. Eosinophils (Bld) [#/Vol] 30 {Cells}/uL Normal 15 - 500 {Cells}/uL [facility] [employer].; [employer]. Eosinophils/100 WBC (Bld) 1 % Normal 0 - 4 % [place] [employer].; [employer]. Erythrocyte distribution width (RBC) [Ratio] 12.9 % Normal 11.0 - 15.0 % [place] [employer].; [employer] Hematocrit (Bld) [Volume fraction] 39.3 % Normal 35.0 - 45.0 % [place] [employer].; [employer]. Lymphocytes (Bld) [#/Vol] 1160 {Cells}/uL Normal 850 - 3900 {Cells}/uL [place] [employer].; [employer]. Lymphocytes/100 WBC (Bld) 27 % Normal 12 - 47 % [place] [employer].; [employer], [employer]. MCH (RBC) [Entitic mass] 30.7 pg Normal 27.0 - 33.0 PG [place] [employer].; [employer], [employer]. MCHC (RBC) [Mass/Vol] 34.1 g/dL Normal 32.0 - 36.0 g/dL [place] [employer].; [employer], [employer]. MCV (RBC) [Entitic vol] 90.1 fL Normal 80.0 - 100.0 fL [place] [employer].; [employer], [employer]. Monocytes (Bld) [#/Vol] 390 {Cells}/uL Normal 20 0 - 950 {Cells}/uL [employer].; [employer] Monocytes/100 WBC (Bld) 9 % Normal 4 - 12 % [facility].; [facility] Neutrophils (Bld) [#/Vol] 2750 {Cells}/uL Normal 1500 - 7800 {Cells}/uL [facility].; [place] [employer]. Neutrophils/100 WBC (Bld) 63 % Normal 40 - 75 % [facility].; [employer] Platelet mean volume (Bld) [Entitic vol] 9.2 fL Normal 7.5 - 12.5 fL [place] [employer] [facility].; [employer] Platelets (Bld) [#/Vol] 219 10*3/uL Normal 140 - 400 10*3/uL [place] [employer].; [place] [employer]. RBC (Bld) [#/Vol] 4.36 10*6/uL Normal 3.80 - 5.1 0 10*6/uL [place] [employer].; [employer]. WBC (Bld) [#/Vol] 4.4 10*3/uL Normal 3.8 - 10.8 10*3/uL [place] [employer].; [employer]. Office Visit: [facility] 04-26-20 Documentation of current medications (procedure) Done Invalid Interpretation Code [employer] Work Phone: [phone] Fall risk assessment No Invalid Interpretation Code [employer] Work Phone: [phone] Left ventricular Ejection fraction 53 % Invalid Interpretation Code [employer] Work Phone: [phone] Protein mass conc Done Invalid Interpretation Code [employer] Work Phone: [phone] Clinical Lists Updateon 06-07 Cholesterol 197 mg/dL Invalid Interpretation Code [employer] Work Phone: [phone] HDL Cholesterol 60 mg/dL Invalid Interpretation Code [employer] Work Phone: [phone] LDL Cholesterol 120 mg/dL Invalid Interpretation Code [employer] Work Phone: [phone] Triglyceride 83 mg/dL Invalid Interpretation Code [employer] Work Phone: [phone] Laboratory - Chemistry and C hemistry - challengeon 06-16-2016 Cholesterol [Mass/Vol] 197 mg/dL Normal 125 - 200 mg/dL [facility].; [place] [employer] [facility]. Cholesterol in HDL [Mass/Vol] 60 mg/dL Normal [facility].; [place] [employer], [facility]. Cholesterol in LDL [Mass/Vol] 120 mg/dL Normal [facility], [facility].; [place] [employer], [employer]. Cholesterol non HDL [Mass/Vol] 137 mg/dL Normal [facility], [facility].; [place] [employer], [employer]. Cholesterol.total/Joy sterol in HDL [Mass ratio] 3.3 {ratio} Normal [facility].; [place] [employer], [employer]. Glucose [Mass/Vol] 86 mg/dL Normal 65 - 99 mg/dL [facility].; [place] [employer], [employer]. Triglyceride [Mass/Vol] 83 mg/dL Normal [facility].; [employer], [employer]. Laboratory - Cytologyon Microscopic observation Cyto stain Nom (Cvx) Normal [facility].; [place] [employer], [employer]. Laboratory - Chemistry and C hemistry - challengeon 06-11-2015 Calcium [Mass/Vol] 10.1 mg/dL Normal 8.6 - 10. 4 mg/dL [facility], [facility].; [place] [employer], [employer]. Chloride [Moles/Vol] 101 mmol/L Normal 98 - 11 0 mmol/L [facility].; [place] [employer], [employer]. Cholesterol [Mass/Vol] 218 mg/dL Abnormal 125 - 200 mg/dL [facility].; [place] [employer], [employer]. Cholesterol in HDL [Mass/Vol] 71 mg/dL Normal [facility] [employer] [facility].; [employer] Cholesterol in LDL [Mass/Vol] 131 mg/dL Abnormal [facility] [employer] [facility].; [employer], [employer]. Cholesterol non HDL [Mass/Vol] 148 mg/dL Normal [place] [employer] [facility].; [place] [employer], [employer]. Cholesterol.total/Joy sterol in HDL [Mass ratio] 3.1 {ratio} Normal [facility] [employer] [facility].; [employer]. CO2 [Moles/Vol] 28 mmol/L Normal 19 - 30 mmol/L [facility] [employer] [facility].; [employer], [employer]. Creatinine [Mass/Vol] 0.92 mg/dL Normal 0.50 - 1.05 mg/dL [place] [employer] [facility], [facility].; [place] [employer], [facility]. GFR/1.73 sq M.predicted among blacks MDRD (S/P/Bld) [Vol rate/Area] 82 {ML/MIN/1.73M2} Normal [facility], [facility].; [place] [employer] [facility], [facility]. GFR/1.73 sq M.predicted MDRD (S/P/Bld) [Vol rate/Area] 71 {ML/MIN/1.73M2} Normal [place] [employer], [facility].; [employer], [employer]. Glucose [Mass/Vol] 88 mg/dL Normal 65 - 99 mg/dL [place] [employer] [facility], [facility].; [employer], [facility]. Potassium [Moles/Vol] 4.0 mmol/L Normal 3.5 - 5.3 mmol/L [place] [employer] [facility].; [employer], [employer]. Sodium [Moles/Vol] 138 mmol/L Normal 135 - 146 mmol/L [place] [employer] [facility].; [employer], [employer]. Triglyceride [Mass/Vol] 82 mg/dL Normal H [facility] [facility].; [employer], [employer]. Urea nitrogen [Mass/Vol] 16 mg/dL Normal 7 - 25 mg/dL [place] [employer] [facility].; [employer] Urea nitrogen/Creatinine [Mass ratio] 16.8 mg/mg Normal 6 - 22 [place] [employer], [employer]. Laboratory - Hematology and Cell countson 06-11-2015 Basophils (Bld) [#/Vol] 20 {Cells}/uL Normal 0 - 200 {Cells}/uL [place] [employer], [employer]. Basophils/100 WBC (Bld) 0 % Normal 0 - 1 % H [facility] [employer] [place] [employer] Eosinophils (Bld) [#/Vol] 70 {Cells}/uL Normal 15 - 500 {Cells}/uL [place] [employer], [employer].; [employer] Eosinophils/100 WBC (Bld) 2 % Normal 0 - 4 % [place] [employer].; [facility]. Erythrocyte distribution width (RBC) [Ratio] 13.0 % Normal 11.0 - 15.0 % [facility].; [facility], [facility] Hematocrit (Bld) [Volume fraction] 41.8 % Normal 35.0 - 45.0 % [facility].; [facility], [facility] Hemoglobin (Bld) [Mass/Vol] 13.9 g/dL Normal 11.7 - 15.5 g/dL [facility].; [facility], [facility] Lymphocytes (Bld) [#/Vol] 1260 {Cells}/uL Normal 850 - 3900 {Cells}/uL [facility].; [facility], [facility] Lymphocytes/100 WBC (Bld) 28 % Normal 12 - 47 % [facility]; [facility], [facility]. MCH (RBC) [Entitic mass] 30.4 pg Normal 27.0 - 33.0 PG [facility].; [facility], [facility]. MCHC (RBC) [Mass/Vol] 33.2 g/dL Normal 32.0 - 36.0 g/dL [facility].; [facility], [facility]. MCV (RBC) [Entitic vol] 91.4 fL Normal 80.0 - 100.0 fL [facility].; [facility], [facility]. Monocytes (Bld) [#/Vol] 320 {Cells}/uL Normal 20 0 - 950 {Cells}/uL [facility], [facility].; [facility], [facility]. Monocytes/100 WBC (Bld) 7 % Normal 4 - 12 % H [facility].; [facility], [facility]. Neutrophils (Bld) [#/Vol] 2890 {Cells}/uL Normal 1500 - 7800 {Cells}/uL [facility], [facility].; [facility] [facility]. Neutrophils/100 WBC (Bld) 63 % Normal 40 - 75 % [facility], [facility].; [facility], [facility]. Platelet mean volume (Bld) [Entitic vol] 9.2 fL Normal 7.5 - 11.5 fL [facility].; [facility], [facility]. Platelets (Bld) [#/Vol] 223 10*3/uL Normal 140 - 400 10*3/uL [employer]. RBC (Bld) [#/Vol] 4.57 10*6/uL Normal 3.80 - 5.1 0 10*6/uL [employer] [employer]. WBC (Bld) [#/Vol] 4.6 10*3/uL Normal 3.8 - 10.8 10*3/uL [employer]. Office Visit: [facility] 04-22-20 15 General cardiovascular disease 10Y risk [#] [place] 2 % Invalid Interpretation Code [employer] Work Phone: Tobacco smoking status NEIS Never smoker Invalid Interpretation Code [employer] Work Phone: Tobacco use [facility] Never smoker Invalid Interpretation Code [employer] Work Phone: Office Visiton 10-21-2014 cardiac risk group B Invalid Interpretation Code [employer] Work Phone: Tobacco smoking status NEIS Never Invalid Interpretation Code [employer] Work Phone: Laboratory - Chemistry and C hemistry - challengeon 06-12-2013 Hemoglobin.gastrointest inal Ql (Stl) Positive Abnormal [employer]. Laboratory - Chemistry and C hemistry - challengeon 06-05-2013 Calcium [Mass/Vol] 10.1 mg/dL Normal 8.6 - 10. 4 mg/dL [employer].; [employer]. Chloride [Moles/Vol] 104 mmol/L Normal 98 - 11 0 mmol/L [employer] [facility].; [employer], [employer]. Cholesterol [Mass/Vol] 179 mg/dL Normal 125 - 200 mg/dL [employer] [facility].; [employer], [employer]. Cholesterol in HDL [Mass/Vol] 75 mg/dL Normal [employer], [facility].; [employer], [employer]. Cholesterol in LDL [Mass/Vol] 91 mg/dL Normal [employer] [facility].; [employer], [employer]. Cholesterol non HDL [Mass/Vol] 104 mg/dL Normal [facility].; [facility]. Cholesterol.total/Joy sterol in HDL [Mass ratio] 2.4 {ratio} Normal [facility].; [facility], [facility]. CO2 [Moles/Vol] 28 mmol/L Normal 19 - 30 mmol/L [facility], [facility].; [employer] [facility], [facility]. Creatinine [Mass/Vol] 0.82 mg/dL Normal 0.50 - 1.05 mg/dL [facility].; [facility], [facility]. GFR/1.73 sq M.predicted among blacks MDRD (S/P/Bld) [Vol rate/Area] 95 {ML/MIN/1.73M2} Normal [facility], [facility].; [facility], [facility]. GFR/1.73 sq M.predicted MDRD (S/P/Bld) [Vol rate/Area] 82 {ML/MIN/1.73M2} Normal [facility], [facility].; [employer] [facility], [facility]. Glucose [Mass/Vol] 82 mg/dL Normal 65 - 99 mg/dL [facility], [facility].; [employer] [facility], [facility]. Potassium [Moles/Vol] 3.9 mmol/L Normal 3.5 - 5.3 mmol/L [facility].; [facility], [facility]. Sodium [Moles/Vol] 139 mmol/L Normal 135 - 146 mmol/L [facility], [facility].; [employer] [facility], [facility]. Triglyceride [Mass/Vol] 67 mg/dL Normal [facility].; [facility], [facility]. Urea nitrogen [Mass/Vol] 21 mg/dL Normal 7 - 25 mg/dL [facility], [facility].; [employer] [facility], [facility]. Urea nitrogen/Creatinine [Mass ratio] 26.0 mg/mg Abnormal 6 - 22 [facility].; [employer] [facility], [facility]. Laboratory - Hematology and Cell countson 06-05-2013 Basophils (Bld) [#/Vol] 20 {Cells}/uL Normal 0 - 200 {Cells}/uL [facility].; [employer], [facility] Basophils/100 WBC (Bld) 0 % Normal 0 - 2 % [facility].; [facility] [facility]. Eosinophils (Bld) [#/Vol] 110 {Cells}/uL Normal 15 - 500 {Cells}/uL [facility].; [employer] [facility]. Eosinophils/100 WBC (Bld) 2 % Normal 0 - 8 % [facility].; [employer], [facility]. Erythrocyte distribution width (RBC) [Ratio] 12.8 % Normal 11.0 - 15.0 % [facility].; [employer] [facility], [facility]. Hematocrit (Bld) [Volume fraction] 38.3 % Normal 35.0 - 45.0 % [facility].; [employer], [facility]. Hemoglobin (Bld) [Mass/Vol] 13.1 g/dL Normal 11.7 - 15.5 g/dL [facility].; [employer] [facility], [facility]. Lymphocytes (Bld) [#/Vol] 1340 {Cells}/uL Normal 850 - 3900 {Cells}/uL [facility].; [employer], [facility]. Lymphocytes/100 WBC (Bld) 29 % Normal 15 - 49 % [facility] [facility].; [employer], [facility]. MCH (RBC) [Entitic mass] 30.9 pg Normal 27.0 - 33.0 PG [facility] [facility].; [employer], [facility]. MCHC (RBC) [Mass/Vol] 34.1 g/dL Normal 32.0 - 36.0 g/dL [facility] [employer] [facility].; [employer], [facility]. MCV (RBC) [Entitic vol] 90.6 fL Normal 80.0 - 100.0 fL [facility] [facility].; [employer], [facility]. Monocytes (Bld) [#/Vol] 360 {Cells}/uL Normal 20 0 - 950 {Cells}/uL [employer], [facility]. Monocytes/100 WBC (Bld) 8 % Normal 0 - 13 % [facility].; [employer], [facility]. Neutrophils (Bld) [#/Vol] 2730 {Cells}/uL Normal 1500 - 7800 {Cells}/uL [employer] [facility].; [facility]. Neutrophils/100 WBC (Bld) 60 % Normal 38 - 80 % [facility].; [employer] [facility]. Platelets (Bld) [#/Vol] 192 10*3/uL Normal 140 - 400 10*3/uL [facility].; [employer] [facility] [employer]. RBC (Bld) [#/Vol] 4.23 10*6/uL Normal 3.80 - 5.1 0 10*6/uL [facility].; [facility]. WBC (Bld) [#/Vol] 4.6 10*3/uL Normal 3.8 - 10.8 10*3/uL [employer].; [employer] [facility] [employer]. Laboratory - Chemistry and C hemistry - challengeon 06-06-2012 Hemoglobin.gastrointest inal Ql (Stl) Negative Normal [employer] [facility].; [employer]. Lab Report: Labs ordered by Dr. Campos 05-23-2012 Alanine aminotransferase (ALT) 31 U/L Normal 6 - 40 U/L [facility] [employer] Work Phone: [phone] Albumin 4.5 g/dL Normal 3.6 - 5.1 g/dL [facility] Work Phone: [phone] Albumin/Globulin Ratio 1.6 {ratio} Normal 1.0 - 2.1 [facility] [employer] Work Phone: [phone] Alkaline phosphatase (ALP) 101 U/L Normal 33 - 130 U/L [facility] Work Phone: [phone] Aspartate aminotransferase (AST) 29 U/L Normal 10 - 35 U/L [facility] Work Phone: [phone] Bilirubin (total) 0.4 mg/dL Normal 0.2 - 1.2 mg/dL [facility] Work Phone: [phone] BUN/Creatinine Ratio 18.1 mg/mg Normal 6 - 22 [facility] Work Phone: [phone] Calcium 10.1 mg/dL Normal 8.6 - 10.4 mg/dL [facility] Work Phone: [phone] Chloride 103 mmol/L Normal 98 - 110 mmol/L [employer] Work Phone: [phone] Cholesterol to HDL Ratio 2.6 {ratio} Normal [employer] Work Phone: [phone] CO2 29 mmol/L Normal 21 - 33 mmol/L [employer] Work Phone: [phone] Creatinine 0.83 mg/dL Normal 0.50 - 1.05 mg/dL [employer] Work Phone: [phone] Glucose mass conc 90 mg/dL Normal 65 - 99 mg/dL [employer] Work Phone: [phone] Potassium 3.9 mmol/L Normal 3.5 - 5.3 mmol/L [employer] Work Phone: [phone] Protein 7.3 g/dL Normal 6.2 - 8.3 g/dL [employer] Work Phone: [phone] Sodium 139 mmol/L Normal 135 - 146 mmol/L [employer] Work Phone: [phone] Urea nitrogen 15 mg/dL Normal 7 - 25 mg/dL [employer] Work Phone: [phone] ALP enzyme act/vol (Bld) 101 U/L Invalid Interpretation Code [employer] Work Phone: [phone] CO2 ppres (BldV) 29 mmol/L Invalid Interpretation Code [employer] Work Phone: [phone] Glucose 90 mg/dL Invalid Interpretation Code [employer] Work Phone: [phone] Laboratory - Chemistry and C hemistry - challengeon 05-23-2012 Cholesterol [Mass/Vol] 189 mg/dL Normal 125 - 200 mg/dL [employer], [employer].; [employer], [employer]. Cholesterol in HDL [Mass/Vol] 72 mg/dL Normal [employer], [employer].; [employer], [employer]. Cholesterol in LDL [Mass/Vol] 102 mg/dL Normal [employer], [employer].; [employer] Cholesterol non HDL [Mass/Vol] 117 mg/dL Normal [employer], [employer].; [employer] GFR/1.73 sq M.predicted among blacks MDRD (S/P/Bld) [Vol rate/Area] 95 {ML/MIN/1.73M2} Normal [facility].; [facility]. GFR/1.73 sq M.predicted MDRD (S/P/Bld) [Vol rate/Area] 82 {ML/MIN/1.73M2} Normal [facility]; [facility] [employer] [facility]. Globulin (S) [Mass/Vol] 2.8 g/dL Normal 2.2 - 3.9 g/dL [facility]; [employer] [facility]. Triglyceride [Mass/Vol] 73 mg/dL Normal [facility].; [employer] [facility]. EKG Report: [facility] ECG Obse rvnaon 02-22-2012 EKG QRS axis 90 deg Invalid Interpretation Code [employer] Work Phone: [phone] electrocardiogram interpretation Possible atrial fibrillation - frequent multiform ectopic ventricular beats # VECs = 11, # types 3-Right axis -consider right ventricular hypertrophy . -Old anteroseptal infarct . - Diffuse nonspecific T-abnormality . ABNORMAL Invalid Interpretation Code [employer] Work Phone: [phone] Interpretation Possible atrial fibrillation - frequent multiform ectopic ventricular beats # VECs = 11, # types 3-Right axis -consider right ventricular hypertrophy . -Old anteroseptal infarct . - Diffuse nonspecific T-abnormality . ABNORMAL Invalid Interpretation Code [employer] Work Phone: [phone] P [place] 1 deg Invalid Interpretation Code [employer] Work Phone: [phone] P wave axis, electrocardiogram 1 deg Invalid Interpretation Code [employer] Work Phone: [phone] [place] Interval 0 ms Invalid Interpretation Code [employer] Work Phone: [phone] OH interval, electrocardiogram 0 ms Invalid Interpretation Code [employer] Work Phone: [phone] Pulse (Heart Rate) 121 /min Invalid Interpretation Code [employer] Work Phone: [phone] Pulse (Heart Rate) 430 ms Invalid Interpretation Code [employer] Work Phone: [phone] QRS axis, electrocardiogram 90 deg Invalid Interpretation Code [employer] Work Phone: [phone] QRS Duration 62 ms Invalid Interpretation Code [employer] Work Phone: QRS duration, electrocardiogram 62 ms Invalid Interpretation Code [facility] Work Phone: [phone] QT Interval new path ms Invalid Interpretation Code [facility] Work Phone: [phone] QT interval, electrocardiogram new path ms Invalid Interpretation Code [facility] Work Phone: [phone] T [place] 1 deg Invalid Interpretation Code [facility] Work Phone: [phone] T wave axis, electrocardiogram 1 deg Invalid Interpretation Code [facility] Work Phone: [phone] Lab Report: CBCon 02-22-2012 Erythrocytes (RBC) 4.02 10*6/uL Low 4.2-5.[address] [facility] [address] [facility] Work Phone: [phone] Hematocrit (HCT) 37.2 % Normal 37-47 [facility] Work Phone: [phone] Hemoglobin (HGB) 13.1 g/dL Normal 12.0-16.0 [facility] Work Phone: [phone] Platelets 170 10*3/mm3 Normal 150-450 [facility] Work Phone: [phone] WBC (Leukocytes) 4.2 10*3/uL Low 4.4-11.0 [facility] Work Phone: [phone] Lab Report: MRSADon 02-22-20 12 GE use only - for [employer] import when terms are not otherwise specified Negative Normal Negative [facility] Work Phone: [phone] tMRSA Negative Normal Negative [facility] Work Phone: [phone] Lab Report: PTon 02-22-2012 INR Coag RelTime (PPP) 1.1 {INR} Normal [facility] Work Phone: [phone] INR in blood by coagulation 1.1 {INR} Normal [facility] Work Phone: [phone] prothrombin time, actual/normal, ratio 13.6 SECONDS Normal 11.9-14.4 [facility] Work Phone: [phone] PTP 13.6 SECONDS Normal 11.9-14.4 [facility] Work Phone: [phone] Lab Report: UAon 02-22-2012 specific gravity, urine <=1.005 Normal 1.002-1.030 [facility] Work Phone: Laboratory - Chemistry and C hemistry - challengeon 06-01-2011 Bilirubin Ql (U) Negative Normal [facility] [employer]. Ketones Ql (U) Negative Normal [facility] [employer], [employer]. pH (U) 7.0 [pH] Normal 4.6 - 8.0 [employer], [employer]. Specific gravity (U) [Rel density] 1.010 Normal 1.001 - 1.025 [employer]. Laboratory - Cytologyon 05-08 Microscopic observation Cyto stain Nom (Cvx) SEE NOTE Normal [facility] [employer]. Laboratory - Hematology and Cell countson 06-01-2011 Hemoglobin Ql (U) trace, non-hemolyzed Abnormal [employer]. Laboratory - Specimen inform ationon 06-01-2011 Appearance (U) clear Normal [facility] [employer].; [employer]. Color (U) yellow Normal [employer]. Laboratory - Urinalysison Glucose Test strip (U) [Mass/Vol] Negative Normal [employer].; [employer], [employer]. Leukocyte esterase Test strip Ql (U) Negative Normal [employer].; [employer]. Nitrite Ql (U) Negative Normal [facility] [employer].; [employer]. Protein Ql (U) Negative Normal [facility].; [employer], [employer]. No Panel Informationon 06-01 UA - UROBILINOGEN 0.2 mg/dL Normal [employer].; [employer], [employer]. Laboratory - Chemistry and C hemistry - challengeon 05-19-2011 Albumin [Mass/Vol] 4.6 g/dL Normal 3.6 - 5.1 g/dL [employer].; [employer], [employer]. Albumin/Globulin [Mass ratio] 1.6 {ratio} Normal 1.0 - 2.1 [facility].; [facility]. ALP [Catalytic activity/Vol] 85 U/L Normal 33 - 115 U/L [facility].; [facility], [facility]. ALT [Catalytic activity/Vol] 23 U/L Normal 6 - 40 U/L [facility].; [facility], [facility]. AST [Catalytic activity/Vol] 27 U/L Normal 10 - 35 U/L [facility].; [employer] [facility], [facility]. Bilirubin [Mass/Vol] 0.5 mg/dL Normal 0.2 - 1 .2 mg/dL [facility].; [employer] [facility], [facility]. Calcium [Mass/Vol] 10.1 mg/dL Normal 8.6 - 10. 2 mg/dL [facility].; [employer] [facility], [facility]. Chloride [Moles/Vol] 103 mmol/L Normal 98 - 11 0 mmol/L [facility].; [employer] [facility], [facility]. Cholesterol [Mass/Vol] 174 mg/dL Normal 125 - 200 mg/dL [facility].; [employer] [facility], [facility]. Cholesterol in HDL [Mass/Vol] 68 mg/dL Normal [facility].; [facility]. Cholesterol in LDL [Mass/Vol] 91 mg/dL Normal [facility].; [employer] [facility]. Cholesterol.total/Joy sterol in HDL [Mass ratio] 2.6 {ratio} Normal [facility].; [employer]. CO2 [Moles/Vol] 28 mmol/L Normal 21 - 33 mmol/L [facility].; [place] [employer] [facility]. Creatinine [Mass/Vol] 0.91 mg/dL Normal 0.59 - 1.07 mg/dL [facility].; [employer] [facility], [facility]. GFR/1.73 sq M.predicted among blacks MDRD (S/P/Bld) [Vol rate/Area] 86 {ML/MIN/1.73M2} Normal [facility], [facility].; [employer], [facility]. GFR/1.73 sq M.predicted MDRD (S/P/Bld) [Vol rate/Area] 74 {ML/MIN/1.73M2} Normal [facility]; [facility] Globulin (S) [Mass/Vol] 2.9 g/dL Normal 2.2 - 3.9 g/dL [facility]; [facility], [facility] Glucose [Mass/Vol] 91 mg/dL Normal 65 - 99 mg/dL [facility]; [facility] Potassium [Moles/Vol] 3.9 mmol/L Normal 3.5 - 5.3 mmol/L [facility]; [facility] Protein [Mass/Vol] 7.5 g/dL Normal 6.2 - 8.3 g/dL [facility]; [facility], [facility] Sodium [Moles/Vol] 141 mmol/L Normal 135 - 146 mmol/L [facility]; [facility] Triglyceride [Mass/Vol] 75 mg/dL Normal H [facility]; [facility] Urea nitrogen [Mass/Vol] 19 mg/dL Normal 7 - 25 mg/dL [facility]; [facility], [facility] Urea nitrogen/Creatinine [Mass ratio] 20.3 mg/mg Normal 6 - 22 [facility]; [facility] Laboratory - Chemistry and C hemistry - challengeon 06-02-2010 Bilirubin Ql (U) Negative Normal [facility].; [facility] Hemoglobin.gastrointest inal Ql (Stl) Negative Normal [facility].; [facility], [facility] Ketones Ql (U) Negative Normal [facility].; [facility], [facility] pH (U) 8.0 [pH] Normal 4.6 - 8.0 [facility].; [facility], [facility] Specific gravity (U) [Rel density] 1.015 Normal 1.001 - 1.025 [facility]; [facility] Laboratory - Hematology and Cell countson 06-02-2010 Hemoglobin Ql (U) Negative Normal [employer]. Laboratory - Specimen inform ationon 06-02-2010 Appearance (U) clear Normal [facility] [employer].; [employer] Color (U) yellow Normal [employer].; [employer]. Laboratory - Urinalysison Glucose Test strip (U) [Mass/Vol] Negative Normal [employer].; [employer]. Leukocyte esterase Test strip Ql (U) Negative Normal [employer].; [employer]. Nitrite Ql (U) Negative Normal [facility] [employer]. Protein Ql (U) Negative Normal [facility] [employer]. No Panel Informationon 06-02 UA - UROBILINOGEN 0.2 mg/dL Normal [employer]. Laboratory - Chemistry and C hemistry - challengeon 05-26-2010 Albumin [Mass/Vol] 4.8 g/dL Normal 3.6 - 5.1 g/dL [employer].; [employer], [employer]. Albumin/Globulin [Mass ratio] 1.7 {ratio} Normal 1.0 - 2.1 [employer].; [employer]. ALP [Catalytic activity/Vol] 89 U/L Normal 33 - 115 U/L [employer].; [employer]. ALT [Catalytic activity/Vol] 24 U/L Normal 6 - 40 U/L [employer].; [employer], [employer]. AST [Catalytic activity/Vol] 21 U/L Normal 10 - 35 U/L [employer].; [employer]. Bilirubin [Mass/Vol] 0.5 mg/dL Normal 0.2 - 1 .2 mg/dL [employer].; [employer], [employer]. Calcium [Mass/Vol] 10.2 mg/dL Normal 8.6 - 10. 2 mg/dL [employer]. Chloride [Moles/Vol] 103 mmol/L Normal 98 - 11 0 mmol/L [facility].; [facility], [facility]. Cholesterol [Mass/Vol] 169 mg/dL Normal 125 - 200 mg/dL [facility].; [facility], [facility]. Cholesterol in HDL [Mass/Vol] 68 mg/dL Normal [facility], [facility].; [facility], [facility]. Cholesterol in LDL [Mass/Vol] 84 mg/dL Normal [facility], [facility].; [facility], [facility]. Cholesterol.total/Joy sterol in HDL [Mass ratio] 2.5 {ratio} Normal [facility], [facility]. CO2 [Moles/Vol] 28 mmol/L Normal 21 - 33 mmol/L [facility].; [facility], [facility]. Creatinine [Mass/Vol] 0.84 mg/dL Normal 0.59 - 1.07 mg/dL [facility], [facility].; [facility], [facility]. GFR/1.73 sq M.predicted among blacks MDRD (S/P/Bld) [Vol rate/Area] mL/min/{1.73_m2} Normal [facility].; [facility], [facility]. GFR/1.73 sq M.predicted MDRD (S/P/Bld) [Vol rate/Area] mL/min/{1.73_m2} Normal [facility], [facility].; [facility], [facility]. Globulin (S) [Mass/Vol] 2.8 g/dL Normal 2.2 - 3.9 g/dL [facility].; [facility], [facility]. Glucose [Mass/Vol] 88 mg/dL Normal 65 - 99 mg/dL [facility], [facility].; [facility], [facility]. Potassium [Moles/Vol] 3.8 mmol/L Normal 3.5 - 5.3 mmol/L [facility], [facility].; [facility], [facility]. Protein [Mass/Vol] 7.6 g/dL Normal 6.2 - 8.3 g/dL [facility], [facility].; [facility], [facility]. Sodium [Moles/Vol] 140 mmol/L Normal 135 - 146 mmol/L [facility].; [facility] Triglyceride [Mass/Vol] 87 mg/dL Normal [facility].; [employer], [employer]. Urea nitrogen [Mass/Vol] 14 mg/dL Normal 7 - 25 mg/dL [employer] [facility].; [employer], [employer]. Urea nitrogen/Creatinine [Mass ratio] 16.4 mg/mg Normal 6 - 22 [employer], [employer]. Laboratory - Hematology and Cell countson 05-26-2010 Basophils (Bld) [#/Vol] 30 {Cells}/uL Normal 0 - 200 {Cells}/uL [employer] [facility].; [employer], [employer]. Basophils/100 WBC (Bld) 1 % Normal 0 - 2 % [facility].; [employer], [employer]. Eosinophils (Bld) [#/Vol] 70 {Cells}/uL Normal 15 - 500 {Cells}/uL [employer], [employer].; [employer], [employer]. Eosinophils/100 WBC (Bld) 2 % Normal 0 - 8 % [employer], [employer]. Erythrocyte distribution width (RBC) [Ratio] 12.8 % Normal 11.0 - 15.0 % [employer], [employer]. Hematocrit (Bld) [Volume fraction] 38.8 % Normal 35.0 - 45.0 % [employer], [employer].; [employer], [employer]. Hemoglobin (Bld) [Mass/Vol] 13.6 g/dL Normal 11.7 - 15.5 g/dL [employer], [employer]. Lymphocytes (Bld) [#/Vol] 1410 {Cells}/uL Normal 850 - 3900 {Cells}/uL [employer], [employer]. Lymphocytes/100 WBC (Bld) 33 % Normal 15 - 49 % [employer], [employer]. MCH (RBC) [Entitic mass] 33.1 pg Abnormal 27.0 - 33.0 PG [employer].; [employer], [employer]. MCHC (RBC) [Mass/Vol] 35.0 g/dL Normal 32.0 - 36.0 g/dL [facility].; [facility]. MCV (RBC) [Entitic vol] 94.3 fL Normal 80.0 - 100.0 fL [facility]; [facility] Monocytes (Bld) [#/Vol] 340 {Cells}/uL Normal 20 0 - 950 {Cells}/uL [facility].; [facility], [facility]. Monocytes/100 WBC (Bld) 8 % Normal 0 - 13 % H [facility]; [facility] Neutrophils (Bld) [#/Vol] 2440 {Cells}/uL Normal 1500 - 7800 {Cells}/uL [facility].; [facility], [facility]. Neutrophils/100 WBC (Bld) 56 % Normal 38 - 80 % [facility]; [facility], [facility] Platelets (Bld) [#/Vol] 178 10*3/uL Normal 140 - 400 10*3/uL [facility].; [facility], [facility]. Platelets LM Ql (Bld) NORMAL Normal [facility]; [facility] RBC (Bld) [#/Vol] 4.11 10*6/uL Normal 3.80 - 5.1 0 10*6/uL [facility].; [facility], [facility]. RBC morphology finding Nom (Bld) NORMAL Normal [facility]; [facility], [facility] WBC (Bld) [#/Vol] 4.3 10*3/uL Normal 3.8 - 10.8 10*3/uL [facility].; [facility]. Vital Signs Date Time Vital Sign Value Performing Clinician Faci arlyny 04-22-2025 11:17-040 Body height 162.[address] Tiarra Cedeno MD Work Phone: [facility] 04-22-2025 11:17-040 Body mass index (BMI) [Ratio] 35.5 kg/m2 Dr. Tiarra Cedeno MD Work Phone: [facility] 04-22-2025 [id number] Body weight 93.[address] Tiarra Cedeno MD Work Phone: [facility] 04-22-2025 11:17-0400 Diastolic blood pressure 83 mm[Hg] Dr. Tiarra Cedeno MD Work Phone: [facility] 04-22-2025 11:17-0400 Heart rate 50 /min Dr. Tiarra Cedeno MD Work Phone: [facility] 04-22-2025 11:17-0400 Respiratory rate 16 /min Dr. Tiarra Cedeno MD Work Phone: [facility] 04-22-2025 11:17-0400 Systolic blood pressure 168 mm[Hg] Dr. Tiarra Cedeno MD Work Phone: [facility] 05-20-2024 09:52-0400 Diastolic blood pressure 79 mm[Hg] Jaimie Bunny HEAD BAKER Work Phone: [employer]; [employer]. Comment on above: Patient Position: Sitting; Cuff Location : Left Arm; Cuff Size: Large 05-20-2024 09:52-0400 Systolic blood pressure 114 mm[Hg] Jaimie Bunny HEAD BAKER Work Phone: [employer]; [employer]. Comment on above: Patient Position: Sitting; Cuff Location : Left Arm; Cuff Size: Large 05-20-2024 09:52-0400 Body height 157.48 cm Jaimie Bunny HEAD BAKER Work Phone: [employer]; [employer]. 05-20-2024 09:52-0400 Body mass index (BMI) [Ratio] 37.68 kg/m2 Jaimie Bunny HEAD BAKER Work Phone: [employer]; [employer]. 05-20-2024 09:52-0400 Body surface area Derived from formula 1.94 m2 Jaimie Bunny HEAD BAKER Work Phone: [employer]; [employer] 05-20-2024 09:52-0400 Body weight 93.44 kg Jaimie Hollis LPN Work Phone: [employer].; [employer]. 05-20-2024 09:52-0400 Diastolic blood pressure 83 mm[Hg] Jaimie Hollis LPN Work Phone: [employer]; [employer]. Comment on above: Patient Position: Sitting; Cuff Location : Left Arm; Cuff Size: Thigh 05-20-2024 09:52-0400 Heart rate 64 /min Jaimie Hollis HEAD BAKER Work Phone: [employer]; [employer]. Comment on above: Pattern: Regular 05-20-2024 09:52-0400 Systolic blood pressure 146 mm[Hg] Jaimie Hollis LPN Work Phone: [employer]; [employer]. Comment on above: Patient Position: Sitting; Cuff Location : Left Arm; Cuff Size: Thigh 12-14-2023 10:55-0400 Diastolic blood pressure 81 mm[Hg] Tiarra Cedeno MD Work Phone: [employer]; [employer]. Comment on above: Patient Position: Sitting; Cuff Location : Left Arm; Cuff Size: Standard 12-14-2023 10:55-0400 Systolic blood pressure 112 mm[Hg] Tiarra Cedeno MD Work Phone: [employer]; [employer]. Comment on above: Patient Position: Sitting; Cuff Location : Left Arm; Cuff Size: Standard 05-22-2023 09:49-0400 Diastolic blood pressure 79 mm[Hg] Di Robert LPN [employer].; [employer]. Comment on above: Patient Position: Sitting; Cuff Location : Left Arm; Cuff Size: Standard 05-22-2023 09:49-0400 Heart rate 60 /min Di Robert LPN [employer].; [employer]. Comment on above: Pattern: Regular 05-22-2023 09:49-0400 Systolic blood pressure 150 mm[Hg] Di Robert LPN [facility], [facility].; [facility] [employer] [facility], [employer]. Comment on above: Patient Position: Sitting; Cuff Location : Left Arm; Cuff Size: Standard 05-22-2023 09:48-0400 Body height 157.48 cm Di Robert LPN [facility], [facility].; [facility], [facility]. 05-22-2023 09:48-0400 Body mass index (BMI) [Ratio] 36.76 kg/m2 Di Robert LPN [facility], [facility].; [facility], [facility]. 05-22-2023 09:48-0400 Body surface area Derived from formula 1.92 m2 Di Robert LPN [facility], [facility].; [facility], [facility]. 05-22-2023 09:48-0400 Body weight 91.17 kg Di Robert LPN [facility], [facility].; [facility] [employer] [facility], [facility]. 05-22-2023 09:48-0400 Diastolic blood pressure 86 mm[Hg] Di Robert LPN [facility].; [facility] [facility], [employer]. Comment on above: Patient Position: Sitting; Cuff Location : Left Arm; Cuff Size: Standard 05-22-2023 09:48-0400 Heart rate 60 /min Di Robert LPN [facility], [facility].; [facility] [employer] [facility], [employer]. Comment on above: Pattern: Regular 05-22-2023 09:48-0400 Systolic blood pressure 154 mm[Hg] Di Robert LPN [facility], [facility].; [facility] [employer] [facility], [employer]. Comment on above: Patient Position: Sitting; Cuff Location : Left Arm; Cuff Size: Standard 05-21-2023 10:50-0400 Diastolic blood pressure 85 mm[Hg] Tiarra Cedeno MD Work Phone: [facility], [facility].; [employer]. Comment on above: Patient Position: Sitting; Cuff Location : Left Arm; Cuff Size: Standard 05-21-2023 10:50-0400 Systolic blood pressure 118 mm[Hg] Tiarra Cedeno MD Work Phone: [facility], [facility].; [employer]. Comment on above: Patient Position: Sitting; Cuff Location : Left Arm; Cuff Size: Standard 06-06-2022 09:58-0400 Body height 157.48 cm Jaimie Watsony HEAD BAKER Work Phone: [facility] [employer]. 06-06-2022 09:58-0400 Body mass index (BMI) [Ratio] 37.13 kg/m2 Jaimie Bunny HEAD BAKER Work Phone: [employer]. 06-06-2022 09:58-0400 Body surface area Derived from formula 1.[address] Work Phone: [employer].; [employer]. 06-06-2022 09:58-0400 Body weight 92.08 kg Jaimie Bunny HEAD BAKER Work Phone: [employer]; [employer]. 06-06-2022 09:58-0400 Diastolic blood pressure 82 mm[Hg] Jaimie Bunny HEAD BAKER Work Phone: [employer]; [employer]. Comment on above: Patient Position: Sitting; Cuff Location : Left Arm; Cuff Size: Standard 06-06-2022 09:58-0400 Heart rate 65 /min Jaimie Bunny HEAD BAKER Work Phone: [employer]; [employer]. Comment on above: Pattern: Regular 06-06-2022 09:58-0400 Systolic blood pressure 148 mm[Hg] Jaimie Bunny HEAD BAKER Work Phone: [employer].; [employer]. Comment on above: Patient Position: Sitting; Cuff Location : Left Arm; Cuff Size: Standard 06-30-2021 09:48-0500 Body height 160.02 cm Jaimie Bunny HEAD BAKER Work Phone: [employer].; [employer]. 06-30-2021 09:48-0500 Body mass index (BMI) [Ratio] 35.07 kg/m2 Jaimie Hollis LPN Work Phone: [employer].; [employer]. 06-30-2021 09:48-0500 Body surface area Derived from formula 1.93 m2 Jaimie Hollis LPN Work Phone: [employer].; [employer]. 06-30-2021 09:48-0500 Body weight 89.81 kg Jaimie Hollis LPN Work Phone: [employer].; [employer]. 06-30-2021 09:48-0500 Diastolic blood pressure 85 mm[Hg] Jaimie Hollis LPN Work Phone: [employer].; [employer]. Comment on above: Patient Position: Sitting; Cuff Location : Left Arm; Cuff Size: Large 06-30-2021 09:48-0500 Heart rate 76 /min Jaimie Hollis LPN Work Phone: [employer]; [employer]. Comment on above: Pattern: Regular 06-30-2021 09:48-0500 Systolic blood pressure 139 mm[Hg] Jaimie Hollis LPN Work Phone: [employer]; [employer]. Comment on above: Patient Position: Sitting; Cuff Location : Left Arm; Cuff Size: Large 05-30-2019 13:36-0400 Body height 160.02 cm Jaimie Hollis LPN Work Phone: [employer].; [employer]. 05-30-2019 13:36-0400 Body mass index (BMI) [Ratio] 35.07 kg/m2 Jaimie Hollis LPN Work Phone: [employer].; [employer] 05-30-2019 13:36-0400 Body surface area Derived from formula 1.93 m2 Jaimie Hollis LPN Work Phone: [employer].; [employer]. 05-30-2019 13:36-0400 Body weight 89.81 kg Jaimie Bunny HEAD BAKER Work Phone: [employer].; [employer]. 05-30-2019 13:36-0400 Diastolic blood pressure 82 mm[Hg] Jaimie Bunny HEAD BAKER Work Phone: [employer].; [employer]. Comment on above: Patient Position: Sitting; Cuff Location : Left Arm; Cuff Size: Large 05-30-2019 13:36-0400 Heart rate 76 /min Jaimie Bunny HEAD BAKER Work Phone: [employer].; [employer]. Comment on above: Pattern: Regular 05-30-2019 13:36-0400 Systolic blood pressure 111 mm[Hg] Jaimie Bunny HEAD BAKER Work Phone: [employer].; [employer]. Comment on above: Patient Position: Sitting; Cuff Location : Left Arm; Cuff Size: Large 06-16-2017 09:28-0500 Body height 160.02 cm Jaimie Bunny HEAD BAKER Work Phone: [employer].; [employer]. 06-16-2017 09:28-0500 Body mass index (BMI) [Ratio] 32.95 kg/m2 Jaimie Bunny HEAD BAKER Work Phone: [employer].; [employer]. 06-16-2017 09:28-0500 Body surface area Derived from formula 1.88 m2 Jaimie Bunny HEAD BAKER Work Phone: [employer].; [employer]. 06-16-2017 09:28-0500 Body weight 84.37 kg Jaimie Bunny HEAD BAKER Work Phone: [employer].; [employer]. 06-16-2017 09:28-0500 Diastolic blood pressure 83 mm[Hg] Jaimie Bunny HEAD BAKER Work Phone: [employer].; [employer]. Comment on above: Patient Position: Sitting; Cuff Location : Right Arm; Cuff Size: Large 06-16-2017 09:28-0500 Heart rate 65 /min Jaimie Hlolis LPN Work Phone: [facility] [employer] [employer]. Comment on above: Pattern: Regular 06-16-2017 09:28-0500 Systolic blood pressure 135 mm[Hg] Jaimie Hollis HEAD BAKER Work Phone: [facility].; [employer]. Comment on above: Patient Position: Sitting; Cuff Location : Right Arm; Cuff Size: Large 04-26-2017 09:03-0400 BMI (Body Mass Index) 31.58 kg/m2 [facility] Work Phone: 04-26-2017 09:03-0400 BP Diastolic 70 mm[Hg] [facility] Work Phone: 04-26-2017 09:03-0400 BP Systolic 112 mm[Hg] [facility] Work Phone: 04-26-2017 09:03-0400 Height 162.56 cm [facility] Work Phone: 04-26-2017 09:03-0400 Pulse (Heart Rate) 60 /min [facility] Work Phone: 04-26-2017 09:03-0400 Respiratory Rate 18 /min [facility] Work Phone: 04-26-2017 09:03-0400 Weight 83.46 kg [facility] Work Phone: 06-09-2016 09:50-0400 Body height 160.02 cm Maria Del Carmen Mena LPN [facility], [employer].; [employer]. 06-09-2016 09:50-0400 Body mass index (BMI) [Ratio] 31.18 kg/m2 Maria Del Carmen Mena LPN [facility] [employer], [employer]. 06-09-2016 09:50-0400 Body surface area Derived from formula 1.83 m2 Neilee L Vess HEAD BAKER [employer] 06-09-2016 09:50-0400 Body weight 79.83 kg Neilee L Vess HEAD BAKER [employer] 06-09-2016 09:50-0400 Diastolic blood pressure 79 mm[Hg] Neilee L Vess HEAD BAKER [employer], [employer]. Comment on above: Patient Position: Sitting; Cuff Location : Right Arm; Cuff Size: Standard 06-09-2016 09:50-0400 Heart rate 63 /min Neilee L Vess HEAD BAKER [employer], [employer]. Comment on above: Pattern: Regular 06-09-2016 09:50-0400 Systolic blood pressure 138 mm[Hg] Neilee L Vess HEAD BAKER [employer] Comment on above: Patient Position: Sitting; Cuff Location : Right Arm; Cuff Size: Standard 04-26-2016 08:48-0400 BSA (Body Surface Area) 1.86 m2 Tena Silverman RN [facility] Work Phone: 06-18-2015 09:55-0500 Body height 160.02 cm Neilee L Vess [employer]ER [employer], [employer]. 06-18-2015 09:55-0500 Body mass index (BMI) [Ratio] 30.47 kg/m2 Neilee L Vess HEAD BAKER [employer], [employer]. 06-18-2015 09:55-0500 Body surface area Derived from formula 1.81 m2 Neilee L Vess HEAD BAKER [employer], [employer]. 06-18-2015 09:55-0500 Body weight 78.02 kg Neilee L Vess [employer]ER [employer], [employer]. 06-18-2015 09:55-0500 Diastolic blood pressure 86 mm[Hg] Neilee L Vess HEAD BAKER [employer]. Comment on above: Patient Position: Sitting; Cuff Location : Right Arm; Cuff Size: Standard 06-18-2015 09:55-0500 Heart rate 70 /min Neilee L Vess HEAD BAKER [facility] [employer]. Comment on above: Pattern: Regular 06-18-2015 09:55-0500 Systolic blood pressure 127 mm[Hg] Neilee L Vess HEAD BAKER [employer]. Comment on above: Patient Position: Sitting; Cuff Location : Right Arm; Cuff Size: Standard 06-12-2013 09:51-0500 Body height 161.29 cm Jaimie Bunny HEAD BAKER Work Phone: [employer]. 06-12-2013 09:51-0500 Body mass index (BMI) [Ratio] 27.37 kg/m2 Jaimie Bunny HEAD BAKER Work Phone: [employer].; [employer]. 06-12-2013 09:51-0500 Body surface area Derived from formula 1.75 m2 Jaimie Bunny HEAD BAKER Work Phone: [employer].; [employer]. 06-12-2013 09:51-0500 Body weight 71.22 kg Jaimie Bunny HEAD BAKER Work Phone: [employer].; [employer]. 06-12-2013 09:51-0500 Diastolic blood pressure 79 mm[Hg] Jaimie Bunny HEAD BAKER Work Phone: [employer].; [employer]. Comment on above: Patient Position: Sitting; Cuff Location : Left Arm; Cuff Size: Standard 06-12-2013 09:51-0500 Heart rate 61 /min Jaimie Bunny HEAD BAKER Work Phone: [employer].; [employer]. Comment on above: Pattern: Regular 06-12-2013 09:51-0500 Systolic blood pressure 151 mm[Hg] Jaimie Bunny HEAD BAKER Work Phone: [employer]; [employer]. Comment on above: Patient Position: Sitting; Cuff Location : Left Arm; Cuff Size: Standard 06-06-2012 09:49-0400 Body height 162.56 cm Jaimie Hollis LPN Work Phone: [employer]; [employer]. 06-06-2012 09:49-0400 Body mass index (BMI) [Ratio] 26.09 kg/m2 Jaimie Hollis LPN Work Phone: [employer]; [employer]. 06-06-2012 09:49-0400 Body surface area Derived from formula 1.74 m2 Jaimie Hollis LPN Work Phone: [employer]; [employer]. 06-06-2012 09:49-0400 Body weight 68.95 kg Jaimie Hollis LPN Work Phone: [employer]; [employer]. 06-06-2012 09:49-0400 Diastolic blood pressure 80 mm[Hg] Jaimie Watsony HEAD BAKER Work Phone: [employer]; [employer]. Comment on above: Patient Position: Sitting; Cuff Location : Left Arm; Cuff Size: Standard 06-06-2012 09:49-0400 Heart rate 61 /min Jaimie Watsony HEAD BAKER Work Phone: [employer]; [employer]. Comment on above: Pattern: Regular 06-06-2012 09:49-0400 Systolic blood pressure 156 mm[Hg] Jaimie Bunny HEAD BAKER Work Phone: [employer]; [employer]. Comment on above: Patient Position: Sitting; Cuff Location : Left Arm; Cuff Size: Standard 02-22-2012 09:19-0400 Heart rate 430 ms [facility] Work Phone: 02-22-2012 09:19-0400 Heart rate 121 /min [facility] Work Phone: 06-01-2011 10:25-0400 Diastolic blood pressure 73 mm[Hg] Jaimie Bunny HEAD BAKER Work Phone: [employer]; [employer]. Comment on above: Patient Position: Sitting; Cuff Location : Left Arm; Cuff Size: Large 06-01-2011 10:25-0400 Systolic blood pressure 123 mm[Hg] Jaimie Bunny HEAD BAKER Work Phone: [employer]. Comment on above: Patient Position: Sitting; Cuff Location : Left Arm; Cuff Size: Large 06-01-2011 09:51-0400 Body height 160.02 cm Jaimie Bunny HEAD BAKER Work Phone: [employer].; [employer]. 06-01-2011 09:51-0400 Body mass index (BMI) [Ratio] 26.04 kg/m2 Jaimie Bunny HEAD BAKER Work Phone: [employer]; [employer]. 06-01-2011 09:51-0400 Body surface area Derived from formula 1.7 m2 Jaimie Bunny HEAD BAKER Work Phone: [employer]; [employer]. 06-01-2011 09:51-0400 Body weight 66.68 kg Jaimie Bunny HEAD BAKER Work Phone: [employer].; [employer]. 06-01-2011 09:51-0400 Diastolic blood pressure 94 mm[Hg] Jaimie Bunny HEAD BAKER Work Phone: [employer].; [employer]. Comment on above: Patient Position: Sitting; Cuff Location : Left Arm; Cuff Size: Standard 06-01-2011 09:51-0400 Heart rate 72 /min Jaimie Bunny HEAD BAKER Work Phone: [employer]; [employer]. Comment on above: Pattern: Regular 06-01-2011 09:51-0400 Systolic blood pressure 146 mm[Hg] Jaimie Bunny HEAD BAKER Work Phone: [employer].; [employer]. Comment on above: Patient Position: Sitting; Cuff Location : Left Arm; Cuff Size: Standard 06-02-2010 09:21-0400 Body height 162.56 cm Jaimie Bunny HEAD BAKER Work Phone: [employer]; [employer]. 06-02-2010 09:21-0400 Body mass index (BMI) [Ratio] 24.03 kg/m2 Jaimieilana Watsony HEAD BAKER Work Phone: [employer].; [employer]. 06-02-2010 09:21-0400 Body surface area Derived from formula 1.68 m2 Jaimie Watsony HEAD BAKER Work Phone: [employer]; [employer]. 06-02-2010 09:21-0400 Body weight 63.5 kg Jaimie Watsony HEAD BAKER Work Phone: [employer].; [employer]. 06-02-2010 09:21-0400 Diastolic blood pressure 90 mm[Hg] Jaimie Bunny HEAD BAKER Work Phone: [employer].; [employer]. Comment on above: Patient Position: Sitting; Cuff Location : Right Arm; Cuff Size: Standard 06-02-2010 09:21-0400 Heart rate 62 /min Jaimie Watsony HEAD BAKER Work Phone: [employer].; [employer]. Comment on above: Pattern: Regular 06-02-2010 09:21-0400 Systolic blood pressure 149 mm[Hg] Jaimie Bunny HEAD BAKER Work Phone: [employer].; [employer]. Comment on above: Patient Position: Sitting; Cuff Location : Right Arm; Cuff Size: Standard Encounters Encounter Date Encounter Type Care Provider Facility Start: 04-25-2025 [facility] Facility:[facility] Start: 04-22-2025 End: 04-22-[address] Tiarra Cedeno MD Work Phone: -[facility] Start: 04-22-2025 End: 04-22-2025 Patient encounter procedure Di Valadez [facility] Work Phone: Start: 12-09-2024 End: 12-09-2024 ambulatory [facility] Facility:[facility] [facility] Start: 09-12-2024 End: 09-12-2024 ambulatory [facility] Facility[facility] Start: 06-14-2024 End: 06-14-2024 Historical Summary Tiarra Cedeno MD Work Phone: [employer]. Start: 05-22-2024 End: 05-22-2024 ambulatory [facility] Start: 05-20-2024 End: 05-20-2024 Patient encounter procedure Tiarra Cedeno MD Work Phone: [employer]. Start: 05-20-2024 End: 05-20-2024 Patient encounter status Jaimie Hollis ALEJANDRA Work Phone: [employer]; [employer]. Start: 05-20-2024 Review Tiarra price MD Work Phone: [employer]. Start: 05-14-2024 End: 05-15-2024 Orders Tiarra Cedeno MD Work Phone: [employer]. Start: 05-09-2024 End: 05-09-2024 ambulatory TIARRA CEDENO [facility] Start: 04-22-2024 End: 04-24-2024 Orders Tiarra Cedeno MD Work Phone: [employer]. Start: 03-07-2024 End: 03-07-2024 Orders Tiarra Cedeno MD Work Phone: [employer] Start: 05-22-2023 End: 05-22-2023 Historical Summary Tiarra Cedeno MD Work Phone: [employer] Start: 05-22-2023 End: 05-22-2023 Patient encounter procedure Di Robert LPN [employer]. Start: 05-15-2023 End: 05-15-2023 ambulatory TIARRA CEDENO [facility] Start: 05-15-2023 End: 05-15-2023 Orders Tiarra Cedeno MD Work Phone: [employer]. Start: 04-12-2023 End: 04-12-2023 Orders Tiarra Cedeno MD Work Phone: [employer]. Start: 06-06-2022 End: 06-06-2022 Patient encounter procedure Tiarra Cedeno MD Work Phone: [employer]. Start: 06-06-2022 End: 06-06-2022 Patient encounter status Jaimie Hollis LPN Work Phone: [employer]; [employer]. Start: 05-30-2022 End: 05-30-2022 Orders Tiarra Cedeno MD Work Phone: [employer]. Start: 04-20-2022 End: 04-20-2022 Orders Tiarra Cedeno MD Work Phone: [employer]. Start: 07-05-2021 End: 07-05-2021 Historical Summary Tiarra Cedeno MD Work Phone: [employer]. Start: 06-30-2021 End: 06-30-2021 Patient encounter procedure Tiarra Cedeno MD Work Phone: [employer] Start: 06-30-2021 End: 06-30-2021 Patient encounter status Tiarra Cedeno MD Work Phone: [employer]; [employer]. Start: 06-21-2021 End: 06-21-2021 KRYSTLE Template Tiarra Cedeno MD Work Phone: [employer]. Start: 04-21-2021 End: 04-21-2021 Orders Tiarra Cedeno MD Work Phone: [employer] Start: 04-20-2020 End: 04-20-2020 Orders Tiarra Cedeno MD Work Phone: [employer] Start: 05-30-2019 End: 05-30-2019 Patient encounter procedure Tiarra Cedeno MD Work Phone: [employer] Start: 05-30-2019 End: 05-30-2019 Patient encounter status Tiarra Cedeno MD Work Phone: [employer]; [employer] Start: 05-27-2019 End: 05-27-2019 Orders Tiarra Cedeno MD Work Phone: [employer] Start: 05-21-2019 End: 05-21-2019 Orders Tiarra Cedeno MD Work Phone: [employer] Start: 04-19-2018 End: 04-19-2018 Orders Tiarra Cedeno MD Work Phone: [employer] Start: 08-17-2017 End: 08-17-2017 Orders Tiarra Cedeno MD Work Phone: [employer] Start: 06-16-2017 End: 06-16-2017 Patient encounter procedure Tiarra Cedeno MD Work Phone: [employer] Start: 06-16-2017 End: 06-16-2017 Patient encounter status Tiarra Cedeno MD Work Phone: [employer]; [employer]. Start: 06-09-2017 End: 06-09-2017 Orders Tiarra eCdeno MD Work Phone: [employer] Start: 04-20-2017 End: 04-20-2017 Orders Tiarra Cedeno MD Work Phone: [employer] Start: 06-16-2016 End: 06-16-2016 Orders Tiarra Cedeno MD Work Phone: [employer] Start: 06-09-2016 End: 06-09-2016 Orders Tiarra Cedeno MD Work Phone: [employer] Start: 06-09-2016 End: 06-09-2016 Manual pelvic examination Tiarra Cedeno MD Work Phone: [employer]; [employer] Start: 06-09-2016 End: 06-09-2016 Patient encounter procedure Tiarra Cedeno MD Work Phone: [employer] Start: 06-09-2016 End: 06-09-2016 Patient encounter status Tiarra Cedeno MD Work Phone: [employer]; [employer]. Start: 06-07-2016 End: 06-07-2016 Historical Summary Tiarra Cedeno MD Work Phone: [employer] Start: 04-26-2016 End: 04-26-2016 Orders Tiarra Cedeno MD Work Phone: [employer] Start: 06-18-2015 End: 06-18-2015 Manual pelvic examination Tiarra Cedeno MD Work Phone: [employer]; [employer]. Start: 06-18-2015 End: 06-18-2015 Patient encounter procedure Tiarra Cedeno MD Work Phone: [employer] Start: 06-11-2015 End: 06-11-2015 Orders Tiarra Cedeno MD Work Phone: [employer] Start: 05-08-2015 End: 05-08-2015 Orders Tiarra Cedeno MD Work Phone: [employer] Start: 05-08-2015 End: 05-08-2015 Orders Tiarra Cedeno MD Work Phone: [employer] Start: 11-08-2014 End: 11-08-2014 Historical Summary Tiarra Cedeno MD Work Phone: [employer] Start: 05-05-2014 End: 05-05-2014 Orders Tiarra Cedeno MD Work Phone: [employer] Start: 06-12-2013 End: 06-12-2013 Manual pelvic examination Tiarra Cedeno MD Work Phone: [employer]; [employer]. Start: 06-12-2013 End: 06-12-2013 Patient encounter procedure Tiarra Cedeno MD Work Phone: [employer] Start: 06-05-2013 End: 06-05-2013 Nursing evaluation of patient and report Tiarra Cedeno MD Work Phone: [employer] Start: 05-29-2013 End: 05-29-2013 Historical Summary Tiarra Cedeno MD Work Phone: [employer] Start: 05-13-2013 End: 05-13-2013 Orders Tiarra Cedeno MD Work Phone: [employer] Start: 05-10-2013 End: 05-10-2013 Orders Tiarra Cedeno MD Work Phone: [employer] Start: 07-18-2012 End: 07-18-2012 Historical Summary Tiarra Cedeno MD Work Phone: [employer] Start: 06-06-2012 End: 06-06-2012 Manual pelvic examination Tiarra Cedeno MD Work Phone: [employer]; [employer] Start: 06-06-2012 End: 06-06-2012 Patient encounter procedure Tiarra Cedeno MD Work Phone: [employer] Start: 05-25-2012 End: 05-25-2012 Orders Tiarra Cedeno MD Work Phone: [employer] Start: 05-23-2012 End: 05-23-2012 Orders Tiarra Cedeno MD Work Phone: [employer] Start: 05-08-2012 End: 05-08-2012 Orders Tiarra Cedeno MD Work Phone: [employer] Start: 06-01-2011 End: 06-01-2011 Historical Summary Tiarra Cedeno MD Work Phone: [employer] Start: 06-01-2011 End: 06-01-2011 Patient encounter procedure Tiarra Cedeno MD Work Phone: [employer] Start: 06-01-2011 End: 06-01-2011 Routine gynecological examination Tiarra Cedeno MD Work Phone: [employer]; [employer]. Start: 05-19-2011 End: 05-19-2011 Orders Tiarra Cedeno MD Work Phone: [employer] Start: 05-04-2011 End: 05-04-2011 Orders Tiarra Cedeno MD Work Phone: [employer] Start: 06-02-2010 End: 06-02-2010 Patient encounter procedure Tiarra Cedeno MD Work Phone: [employer] Start: 06-02-2010 End: 06-02-2010 Routine general medical examination at a health care facility Tiarra Cedeno MD Work Phone: [employer]. Start: 05-26-2010 End: 05-26-2010 Orders Tiarra Cedeno MD Work Phone: [employer]. Start: 05-26-2010 End: 05-26-2010 Routine general medical examination at a health care facility Tiarra Cedeno MD Work Phone: [employer]; [employer]. Start: 05-25-2010 End: 05-25-2010 Orders Tiarra Cedeno MD Work Phone: [employer] Start: 05-25-2010 End: 05-25-2010 Routine general medical examination at a health care facility Tiarra Cedeno MD Work Phone: [employer]; [facility]. Procedures Date Procedure Procedure Detail Performing Clinician Start: 04-22-2025 Urnls dip stick/tabl et reagent auto microscopy Dr. Tiarra Cedeno MD Work Phone: Start: 04-22-2025 X-ray of chest, PA a nd lateral views Dr. Tiarra Cedeno MD Work Phone: Start: 06-14-2024 End: 06-14-2024 FIT DNA test Jaimie Bunny ROBERTS Work Phone: Comment on above: Negative Finding. co logard Start: 05-20-2024 End: 05-20-2024 Body mass index documented Tiarra brown MD Work Phone: Start: 05-20-2024 End: 05-20-2024 Depression screening Tiarra Cedeno MD Work Phone: Start: 05-20-2024 End: 05-20-2024 Flu immunize order/admin Tiarra amin MD Work Phone: Start: 05-20-2024 End: 05-20-2024 Scr dep neg, no plan reqd Tiarra barrett MD Work Phone: Start: 05-14-2024 End: 05-14-2024 Lab findings surveillance Jaimie Hollis Corinne MARTE Work Phone: Comment on above: Normal. 92 Start: 05-14-2024 End: 05-14-2024 Lipid panel results documented & reviewed Jaimie Bunny ROBERTS Work Phone: Comment on above: Normal. tc 213 hdl 6 2 ldl 128 trig 118 Start: 05-09-2024 End: 05-09-2024 Screening mammography Tiarra Cedeno MD Work Phone: Comment on above: Within Normal Limits . 05/18/16 neg, 05/23/17 neg, 05/24/18 neg, 05/28/19 neg, 05/31/21 neg, 05/30/22 neg, 05/2023 neg, 05/09/24 neg Start: 04-22-2024 End: 05-10-2024 Screening mammography bi 2-view breast inc cad Tiarra Cedeno MD Work Phone: Start: 05-22-2023 End: 05-22-2023 Depression screening Tiarra Cedeno MD Work Phone: Start: 05-22-2023 End: 05-22-2023 Scr dep neg, no plan reqd Tiarra barrett MD Work Phone: Start: 05-15-2023 End: 05-15-2023 Lab findings surveillance Di Robert LPN Comment on above: Normal. 101 Start: 05-15-2023 End: 05-15-2023 Lipid panel results documented & reviewed Di Robert LPN Comment on above: Normal. tc 186 hdl 6 4 ldl 103 trig 96 Start: 05-08-2023 End: 05-08-2023 Screening mammography Di Robert LPN Comment on above: Within Normal Limits . 05/18/16 neg, 05/23/17 neg, 05/24/18 neg, 05/28/19 neg, 05/31/21 neg, 05/30/22 neg, 05/2023 neg Start: 04-12-2023 End: 05-15-2023 Screening mammography bi 2-view breast inc cad Tiarra Cedeno MD Work Phone: Start: 08-23-2022 End: 08-23-2022 Bone density scan Di Robert LPN Comment on above: plan to do in 2016-- patient does not recall this being offered yet06/26/17 osteopenia of spine, normal at hips, 08/23/22 unchanged Start: 06-06-2022 End: 06-06-2022 Body mass index documented Tiarra brown MD Work Phone: Start: 06-06-2022 End: 06-06-2022 Depression screening Tiarra Cedeno MD Work Phone: Start: 06-06-2022 End: 06-06-2022 Docrev cur meds by claire sanchez MD Work Phone: Start: 06-06-2022 End: 08-24-2022 Dxa bone density study 1/> sites axial skel Tiarra Cedeno MD Work Phone: Start: 06-06-2022 End: 06-06-2022 Flu immunize order/admin Tiarra amin MD Work Phone: Start: 06-06-2022 End: 06-06-2022 Most recent diastolic blood pressure 80-89 mm hg Tiarra Cedeno MD Work Phone: Start: 06-06-2022 End: 06-06-2022 Most recent systolic blood pres>/equal 140 mm hg Tiarra Cedeno MD Work Phone: Start: 06-06-2022 End: 06-06-2022 Scr dep neg, no plan reqd Tiarra barrett MD Work Phone: Start: 04-20-2022 End: 05-30-2022 Screening mammography bi 2-view breast inc cad Jaimie Hollis LPN Work Phone: Start: 06-30-2021 End: 06-30-2021 Body mass index documented Tiarra brown MD Work Phone: Start: 06-30-2021 End: 06-30-2021 Current tobacco non-user cad cap copd pv dm Tiarra Cedeno MD Work Phone: Start: 06-30-2021 End: 06-30-2021 Depression screening Tiarra Cedeno MD Work Phone: Start: 06-30-2021 End: 06-30-2021 Docrev cur meds by claire sanchez MD Work Phone: Start: 06-30-2021 End: 06-30-2021 Flu immunize order/admin Tiarra amin MD Work Phone: Start: 06-30-2021 End: 06-30-2021 Microscopic examination of cervical Papanicolaou smear Di Robert LPN Comment on above: pap done 2010, plan to repeat in 2015, 2020 then stop after age 61, 06/09/2016 neg, 06/30/21 neg, atrophic / parabsal cells Start: 06-30-2021 End: 06-30-2021 Most recent diastolic blood pressure 80-89 mm hg Tiarra Cedeno MD Work Phone: Start: 06-30-2021 End: 06-30-2021 Most recent systolic blood press 130-139mm hg Tiarra Cedeno MD Work Phone: Start: 06-30-2021 End: 06-30-2021 Scr dep neg, no plan reqd Tiarra barrett MD Work Phone: Start: 04-21-2021 End: 06-09-2021 Screening mammography bi 2-view breast inc cad Tiarra Cedeno MD Work Phone: Start: 04-20-2020 End: 05-29-2020 Screening mammography bi 2-view breast inc cad Tiarra Cedeno MD Work Phone: Start: 05-30-2019 End: 05-30-2019 [facility] Start: 05-30-2019 End: 05-30-2019 Current tobacco non-user cad cap copd pv dm Tiarra Cedeno MD Work Phone: Start: 05-30-2019 End: 05-30-2019 Depression screening Tiarra Cedeno MD Work Phone: Start: 05-30-2019 End: 05-30-2019 Docrev cur meds by claire sanchez MD Work Phone: Start: 05-30-2019 End: 05-30-2019 Flu immunize order/admin Tiarra amin MD Work Phone: Start: 05-30-2019 End: 05-30-2019 Most recent diastolic blood pressure 80-89 mm hg Tiarra Cedeno MD Work Phone: Start: 05-30-2019 End: 05-30-2019 Most recent systolic blood pressure <130 mm hg Tiarra Cedeno MD Work Phone: Start: 05-30-2019 End: 05-30-2019 Scr dep neg, no plan reqd Tiarra barrett MD Work Phone: Start: 05-27-2019 End: 05-30-2019 Screening mammography bi 2-view breast inc cad Tiarra Cedeno MD Work Phone: Start: 04-19-2018 End: 05-24-2018 Screening mammography bi 2-view breast inc cad Tiarra Cedeno MD Work Phone: Start: 06-22-2017 End: 05-16-2024 Dxa bone density study 1/> sites axial skel Tiarra Cedeno MD Work Phone: Start: 06-16-2017 End: 06-16-2017 Current tobacco non-user cad cap copd pv dm Tiarra Cedeno MD Work Phone: Start: 06-16-2017 End: 06-16-2017 Docrev cur meds by claire sanchez MD Work Phone: Start: 06-16-2017 End: 06-16-2017 Most recent diastolic blood pressure 80-89 mm hg Tiarra Cedeno MD Work Phone: Start: 06-16-2017 End: 06-16-2017 Most recent systolic blood press 130-139mm hg Tiarra Cedeno MD Work Phone: Start: 06-16-2017 End: 06-28-2017 Dxa bone density study 1/> sites axial skel Tiarra Cedeno MD Work Phone: Start: 06-16-2017 End: 06-16-2017 Body mass index documented Tiarra brown MD Work Phone: Start: 04-26-2017 End: 04-26-2017 Follow Up Appt 1 year Di robertson PA-C Work Phone: Start: 04-26-2017 End: 04-26-2017 PFM Di Valadez PA-C Work Phone: Start: 04-26-2017 End: 04-26-2017 Program eval pepe in persn dual ld pacer Tanvir Gallo MD Start: 04-26-2017 End: 04-26-2017 Follow Up Appt 1 year Di robertson PA-C Work Phone: Start: 04-26-2017 End: 04-26-2017 [facility] Di Valadez PA-C Work Phone: Start: 04-26-2017 End: 04-26-2017 Pm device progr eval, dual Tanvir Gallo MD Start: 04-20-2017 End: 05-23-2017 Screening mammography bi 2-view breast inc cad Tiarra Cedeno MD Work Phone: Start: 10-26-2016 End: 04-19-2017 Follow Up Appt 6 months Maribell Govea Start: 10-26-2016 End: 04-19-2017 [facility] Tanvir Gallo MD Start: 10-26-2016 End: 10-26-2016 Program eval implantable in persn dual ld pacer Tanvir Gallo MD Start: 10-26-2016 End: 04-19-2017 Follow Up Appt 6 months Maribell Govea Start: 10-26-2016 End: 04-19-2017 Pacer Clinic Tanvir Gallo MD Start: 10-26-2016 End: 10-26-2016 Pm device progr kavitha dual Tanvir Gallo MD Start: 04-26-2016 End: 04-26-2016 Follow Up Appt 1 year Tanvir Gallo MD Start: 04-26-2016 End: 04-19-2017 Follow Up Appt 6 months Maribell Govea Start: 04-26-2016 End: 05-27-2016 Mammogram, screening Librado Laurent MD Work Phone: Start: 04-26-2016 End: 04-26-2016 MMM Tanvir Gallo MD Start: 04-26-2016 End: 04-19-2017 Pacer Clinic Tanvir Gallo MD Start: 04-26-2016 End: 04-26-2016 Program eval implantable in persn dual ld pacer Tanvir Gallo MD Start: 04-26-2016 End: 04-26-2016 Follow Up Appt 1 year Tanvir Gallo MD Start: 04-26-2016 End: 04-19-2017 Follow Up Appt 6 months Maribell Govea Start: 04-26-2016 End: 04-26-2016 PARADISEM Tanvir Gallo MD Start: 04-26-2016 End: 04-19-2017 Pacer Clinic Tanvir Gallo MD Start: 04-26-2016 End: 04-26-2016 Pm device progr eval, dual Tanvir Gallo MD Start: 10-21-2015 End: 04-19-2017 Follow Up Appt 3 months Maribell Govea Start: 10-21-2015 End: 04-19-2017 Pacer Clinic Tanvir Gallo MD Start: 10-21-2015 End: 10-30-2015 Program eval implantable in persn dual ld itar Tanvir Gallo MD Start: 10-21-2015 End: 04-19-2017 Follow Up Appt 3 months Maribell Govea Start: 10-21-2015 End: 04-19-2017 Pacer Clinic Tanvir Gallo MD Start: 10-21-2015 End: 10-30-2015 Pm device progr eval, dual Tanvir Gallo MD Start: 05-08-2015 End: 05-21-2015 Mammogram, screening Tiarra Cedeno MD Work Phone: Start: 04-22-2015 End: 04-22-2015 [employer] Di Valadez PA-C Work Phone: Start: 04-22-2015 End: 04-23-2015 Documentation of current medications Di Valadze PA-C Work Phone: Start: 04-22-2015 End: 04-22-2015 Follow Up Appt 1 year Di robertson PA-C Work Phone: Start: 04-22-2015 End: 04-19-2017 Follow Up Appt 6 months Maribell Govea Start: 04-22-2015 End: 04-19-2017 Pacer Clinic Tanvir Gallo MD Start: 04-22-2015 End: 04-22-2015 Program eval implantable in persn dual ld pacer Tanvir Gallo MD Start: 04-22-2015 End: 04-22-2015 [employer] INSPECTOR Di Valdaez PA-C Work Phone: Start: 04-22-2015 End: 04-23-2015 Documentation of current medications Di Valadez PA-C Work Phone: Start: 04-22-2015 End: 04-22-2015 Follow Up Appt 1 year Di robertson PA-C Work Phone: Start: 04-22-2015 End: 04-19-2017 Follow Up Appt 6 months Maribell Govea Start: 04-22-2015 End: 04-19-2017 Pacer Clinic Tanvir Gallo MD Start: 04-22-2015 End: 04-22-2015 Pm device progr eval, dual Tanvir Gallo MD Start: 10-29-2014 End: 10-29-2014 Radionuclide myocardial perfusion study Jaimie Hollis LPN Work Phone: Comment on above: 10/29/14: nuclear str ess tanesha guevraa Start: 10-21-2014 End: 10-22-2014 Documentation of current medications Tanvir Gallo MD Start: 10-21-2014 End: 04-10-2015 Echocardiography Tanvir Gallo MD Start: 10-21-2014 End: 04-10-2015 Follow Up Appt 6 months Maribell Govea Start: 10-21-2014 End: 10-21-2014 MMM Tanvir Gallo MD Start: 10-21-2014 End: 10-27-2014 Nuclear stress test -exercise Tanvir Gallo MD Start: 10-21-2014 End: 04-10-2015 Pacer Clinic Tanvir Gallo MD Start: 10-21-2014 End: 10-21-2014 Program eval implantable in persn dual ld pacer Tanvir Gallo MD Start: 10-21-2014 End: 10-22-2014 Documentation of current medications Tanvir Gallo MD Start: 10-21-2014 End: 04-10-2015 Echocardiography Tanvir Gallo MD Start: 10-21-2014 End: 04-10-2015 Follow Up Appt 6 months Maribell Govea Start: 10-21-2014 End: 10-21-2014 MMMaribell Gallo MD Start: 10-21-2014 End: 10-27-2014 Nuclear stress test -exercise Tanvir Gallo MD Start: 10-21-2014 End: 04-10-2015 Pacer Clinic Tanvir Gallo MD Start: 10-21-2014 End: 10-21-2014 Pm device progr eval, dual Tanvir Gallo MD Start: 08-13-2014 End: 10-27-2014 Follow Up Appt 3 months Maribell Govea Start: 08-13-2014 End: 10-27-2014 Pacer Clinic Tanvir Gallo MD Start: 08-13-2014 End: 08-13-2014 Program eval implantable in persn dual ld pacer Tanvir Gallo MD Start: 08-13-2014 End: 10-27-2014 Follow Up Appt 3 months Maribell Govea Start: 08-13-2014 End: 10-27-2014 Pacer Clinic Tanvir Gallo MD Start: 08-13-2014 End: 08-13-2014 Pm device progr jose alejandroal, dual Tanvir Gallo MD Start: 05-05-2014 End: 10-28-2015 Mammogram, screening Tiarra Cedeno MD Work Phone: Start: 01-29-2014 End: 10-27-2014 Follow Up Appt 6 months Maribell Govea Start: 01-29-2014 End: 10-27-2014 Pacer Clinic Tanvir Gallo MD Start: 01-29-2014 End: 01-29-2014 Program eval implantable in persn dual ld pacer Tanvir Gallo MD Start: 01-29-2014 End: 10-27-2014 Follow Up Appt 6 months Maribell Govea Start: 01-29-2014 End: 10-27-2014 Pacer Clinic Tanvir Gallo MD Start: 01-29-2014 End: 01-29-2014 Pm device progr eval, dual Tanvir Gallo MD Start: 10-22-2013 End: 10-22-2013 [employer] INSPECTOR Tanvir Gallo MD Start: 10-22-2013 End: 10-22-2013 Follow Up Appt 1 year Tanvir Gallo MD Start: 10-22-2013 End: 10-22-2013 Follow Up Appt 3 months Maribell Govea Start: 10-22-2013 End: 10-22-2013 Pacer Clinic Tanvir Gallo MD Start: 10-22-2013 End: 10-22-2013 Program eval implantable in persn dual ld pacer Tanvir Gallo MD Start: 10-22-2013 End: 10-22-2013 KIMBERLY Gallo MD Start: 10-22-2013 End: 10-22-2013 Follow Up Appt 1 year Tanvir Gallo MD Start: 10-22-2013 End: 10-22-2013 Follow Up Appt 3 months Maribell Govea Start: 10-22-2013 End: 10-22-2013 Pacer Clinic Tanvir Gallo MD Start: 10-22-2013 End: 10-22-2013 Pm device progr eval, dual Tanvir Gallo MD Start: 08-07-2013 End: 08-07-2013 Ophthalmic examination and evaluation Di Robert LPN Start: 07-10-2013 End: 10-27-2014 Follow Up Appt 3 months Maribell Govea Start: 07-10-2013 End: 10-27-2014 Pacer Clinic Tanvir Gallo MD Start: 07-10-2013 End: 07-10-2013 Program eval implantable in persn dual ld pacer Tanvir Gallo MD Start: 07-10-2013 End: 10-27-2014 Follow Up Appt 3 months Maribell Govea Start: 07-10-2013 End: 10-27-2014 Pacer Clinic Tanvir Gallo MD Start: 07-10-2013 End: 07-10-2013 Pm device progr kavitha, dual Tanvir Gallo MD Start: 05-29-2013 End: 05-29-2013 Mammogram, screening Tiarra Cedeno MD Work Phone: Start: 04-23-2013 End: 10-27-2014 Follow Up Appt 3 months Maribell Govea Start: 04-23-2013 End: 10-27-2014 Pacer Clinic Tanvir Gallo MD Start: 04-23-2013 End: 04-23-2013 Program eval implantable in persn dual ld pacer Tanvir Gallo MD Start: 04-23-2013 End: 10-27-2014 Follow Up Appt 3 months Maribell Govea Start: 04-23-2013 End: 10-27-2014 Pacer Clinic Tanvir Gallo MD Start: 04-23-2013 End: 04-23-2013 Pm device progr jose alejandroal, dual Tanvir Gallo MD Start: 01-15-2013 End: 10-27-2014 Follow Up Appt 3 months Maribell Govea Start: 01-15-2013 End: 10-27-2014 Pacer Clinic Tanvir Gallo MD Start: 01-15-2013 End: 01-15-2013 Program eval implantable in persn dual ld pacer Tanvir Gallo MD Start: 01-15-2013 End: 10-27-2014 Follow Up Appt 3 months Maribell Govea Start: 01-15-2013 End: 10-27-2014 Pacer Clinic Tanvir Gallo MD Start: 01-15-2013 End: 01-15-2013 Pm device progr orlando plummer MD Start: 10-18-2012 End: 10-27-2014 Follow Up Appt 3 months Maribell Govea Start: 10-18-2012 End: 10-27-2014 Pacer Clinic Tanvir Gallo MD Start: 10-18-2012 End: 10-18-2012 Program eval implantable in persn dual ld itar Tanvir Gallo MD Start: 10-18-2012 End: 10-27-2014 Follow Up Appt 3 months Maribell Govea Start: 10-18-2012 End: 10-27-2014 Pacer Clinic Tanvir Gallo MD Start: 10-18-2012 End: 10-18-2012 Pm device progr kavitha dual Tanvir Gallo MD Start: 08-07-2012 End: 08-07-2012 Screening colonoscopy Di Robert LPN Comment on above: Normal. [facility] Clint repeat 10 yr Start: 08-07-2012 End: 08-07-2012 Screening for malignant neoplasm of large intestine Di Robert LPN Comment on above: stool hemoccult neg, colonoscopy -Floyd Start: 07-11-2012 End: 07-11-2012 Echocardiography Jaimie Hollis LPN Work Phone: Comment on above: ECHO: NL LV size, EF 55%, 1+tricuspid regurg Start: 07-03-2012 End: 07-12-2012 Echocardiography Tanvir Gallo MD Start: 07-03-2012 End: 07-03-2012 Follow Up Appt 1 year Tanvir Gallo MD Start: 07-03-2012 End: 07-12-2012 Echocardiography Tanvri Gallo MD Start: 07-03-2012 End: 07-03-2012 Follow Up Appt 1 year Tanvir Gallo MD Start: 05-28-2012 End: 05-28-2012 Mammogram, screening Tiarra Cedeno MD Work Phone: Start: 03-02-2012 End: 03-02-2012 Pacemaker replacement Jaimie Hollis LPN Work Phone: Comment on above: Tanesha Barrientos Start: 02-22-2012 End: 02-22-2012 Ecg routine ecg w/least 12 lds w/i&r Tanvir Gallo MD Start: 02-22-2012 End: 02-22-2012 Electrocardiogram, complete Tanvir Green i, MD Start: 12-02-2011 End: 12-02-2011 Follow Up Appt 6 months Maribell Govea Start: 12-02-2011 End: 12-02-2011 Follow Up Appt 6 months Maribell Govea Start: 05-04-2011 End: 05-30-2011 Mammogram, screening Tiarra Cedeno MD Work Phone: [id number] Di Robert LPN Comment on above: plan to do in 2015 Pacemaker Jaimie Bunny LP N Work Phone: Comment on above: 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 Start: 20-May-2024 09:40-04:00 MD Tiarra Cedeno Appointment Request [facility]. Start: 05-14-2024 Basic metabolic panel calcium total BMP w/ GFR (F) (07574) Start: 14-May-2024 Request [facility].; [employer] Start: 05-14-2024 Lipid panel LIPID PANEL (03179) Start: 14-May-2024 Request [facility].; [facility] Start: 05-14-2024 Nursing evaluation of patient and report [facility]. Start: 04-22-2024 Screening mammography bi 2-view breast inc cad Mammogram Bilateral Screening Digital w/CAD (33470) with 3D (tomosynthesis), bilateral ([id number]) Start: 22-Apr-2024 Intent [employer] Start: 04-26-2018 End: 04-26-2018 Appointment Appointment [facility] Work Phone: Start: 10-24-2017 End: 10-24-2017 Appointment Appointment [facility] Work Phone: Start: 06-22-2017 Dxa bone density study 1/> sites axial skel Bone Density Start: 22-Jun-2017 Intent [employer] Start: 04-26-2017 End: 04-26-2017 Follow Up Appt 1 year Follow Up Appt 1 year [facility] Work Phone: Start: 04-26-2017 End: 04-26-2017 Follow Up Appt 6 months Follow Up Appt 6 months [facility] Work Phone: Start: 04-26-2017 End: 04-26-2017 [facility] Clinic [facility] Work Phone: Start: 04-26-2017 End: 04-26-2017 PFM PFM [facility] Work Phone: Start: 04-26-2017 End: 04-26-2017 Appointment Appointment [facility] Work Phone: Start: 04-26-2017 End: 04-26-2017 Follow Up Appt 1 year Follow Up Appt 1 year [facility] Work Phone: Start: 04-26-2017 End: 04-26-2017 Follow Up Appt 6 months Follow Up Appt 6 months [facility] Work Phone: Start: 04-26-2017 End: 04-26-2017 Pacer Clinic [facility] Work Phone: Start: 04-26-2017 End: 04-26-2017 PFM PFM [facility] Work Phone: Start: 10-26-2016 End: 04-19-2017 Follow Up Appt 6 months Follow Up Appt 6 months [facility] Work Phone: Start: 10-26-2016 End: 04-19-2017 Pacer Clinic [facility] Work Phone: Start: 10-26-2016 End: 04-19-2017 Follow Up Appt 6 months Follow Up Appt 6 months [facility] Work Phone: Start: 10-26-2016 End: 04-19-2017 Pacer Clinic [facility] Work Phone: Start: 04-26-2016 End: 04-26-2016 Follow Up Appt 1 year Follow Up Appt 1 year [facility] Work Phone: Start: 04-26-2016 End: 04-19-2017 Follow Up Appt 6 months Follow Up Appt 6 months [facility] Work Phone: Start: 04-26-2016 End: 04-26-2016 MMM MMM [facility] Work Phone: Start: 04-26-2016 End: 04-19-2017 Pacer Clinic [facility] Work Phone: Start: 04-26-2016 End: 04-26-2016 Follow Up Appt 1 year Follow Up Appt 1 year [facility] Work Phone: Start: 04-26-2016 End: 04-19-2017 Follow Up Appt 6 months Follow Up Appt 6 months [facility] Work Phone: Start: 04-26-2016 End: 04-26-2016 MMM MMM [facility] Work Phone: Start: 04-26-2016 End: 04-19-2017 Pacer Clinic [facility] Work Phone: Start: 10-21-2015 End: 04-19-2017 Follow Up Appt 3 months Follow Up Appt 3 months [facility] Work Phone: Start: 10-21-2015 End: 04-19-2017 Pacer Clinic [facility] Work Phone: Start: 10-21-2015 End: 04-19-2017 Follow Up Appt 3 months Follow Up Appt 3 months [facility] Work Phone: Start: 10-21-2015 End: 04-19-2017 Pacer Clinic [facility] Work Phone: Start: 04-22-2015 End: 04-22-2015 [facility] Work Phone: Start: 04-22-2015 End: 04-22-2015 Follow Up Appt 1 year Follow Up Appt 1 year [facility] Work Phone: Start: 04-22-2015 End: 04-19-2017 Follow Up Appt 6 months Follow Up Appt 6 months [facility] Work Phone: Start: 04-22-2015 End: 04-19-2017 Pacer Clinic [facility] Work Phone: Start: 04-22-2015 End: 04-22-2015 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 [facility] Work Phone: Start: 04-22-2015 End: 04-22-2015 Follow Up Appt 1 year Follow Up Appt 1 year [facility] Work Phone: Start: 04-22-2015 End: 04-19-2017 Follow Up Appt 6 months Follow Up Appt 6 months [facility] Work Phone: Start: 04-22-2015 End: 04-19-2017 Pacer Clinic [facility] Work Phone: Start: 10-21-2014 End: 10-21-2014 Echocardiography Echocardiogram (complete) [facility] Work Phone: Start: 10-21-2014 End: 04-10-2015 Follow Up Appt 6 months Follow Up Appt 6 months [facility] Work Phone: Start: 10-21-2014 End: 10-21-2014 MMM MMM [facility] Work Phone: Start: 10-21-2014 End: 10-21-2014 Nuclear stress test -exercise Nuclear stress test -exercise [facility] Work Phone: Start: 10-21-2014 End: 04-10-2015 Pacer Clinic [facility] Work Phone: Start: 10-21-2014 End: 10-21-2014 Echocardiography Echocardiogram (complete) [facility] Work Phone: Start: 10-21-2014 End: 04-10-2015 Follow Up Appt 6 months Follow Up Appt 6 months [facility] Work Phone: Start: 10-21-2014 End: 10-21-2014 MMM MMM [facility] Work Phone: Start: 10-21-2014 End: 10-21-2014 Nuclear stress test -exercise Nuclear stress test -exercise [facility] Work Phone: Start: 10-21-2014 End: 04-10-2015 Pacer Clinic [facility] Work Phone: Start: 08-13-2014 End: 10-27-2014 Follow Up Appt 3 months Follow Up Appt 3 months [facility] Work Phone: Start: 08-13-2014 End: 10-27-2014 Pac[facility] Clinic [facility] Work Phone: Start: 08-13-2014 End: 10-27-2014 Follow Up Appt 3 months Follow Up Appt 3 months [facility] Work Phone: Start: 08-13-2014 End: 10-27-2014 [facility] Clinic [facility] Work Phone: Start: 01-29-2014 End: 10-27-2014 Follow Up Appt 6 months Follow Up Appt 6 months [facility] Work Phone: Start: 01-29-2014 End: 10-27-2014 Pacer Clinic [facility] Work Phone: Start: 01-29-2014 End: 10-27-2014 Follow Up Appt 6 months Follow Up Appt 6 months [facility] Work Phone: Start: 01-29-2014 End: 10-27-2014 Pacer Clinic [facility] Work Phone: Start: 10-22-2013 End: 10-22-2013 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 [facility] Work Phone: Start: 10-22-2013 End: 10-22-2013 Follow Up Appt 1 year Follow Up Appt 1 year [facility] Work Phone: Start: 10-22-2013 End: 10-22-2013 Follow Up Appt 3 months Follow Up Appt 3 months [facility] Work Phone: Start: 10-22-2013 End: 10-22-2013 Pacer Clinic [facility] Work Phone: Start: 10-22-2013 End: 10-22-2013 [facility] Work Phone: Start: 10-22-2013 End: 10-22-2013 Follow Up Appt 1 year Follow Up Appt 1 year [facility] Work Phone: Start: 10-22-2013 End: 10-22-2013 Follow Up Appt 3 months Follow Up Appt 3 months [facility] Work Phone: Start: 10-22-2013 End: 10-22-2013 Pacer Clinic [facility] Work Phone: Start: 07-10-2013 End: 10-27-2014 Follow Up Appt 3 months Follow Up Appt 3 months [facility] Work Phone: Start: 07-10-2013 End: 10-27-2014 Pacer Clinic [facility] Work Phone: Start: 07-10-2013 End: 10-27-2014 Follow Up Appt 3 months Follow Up Appt 3 months [facility] Work Phone: Start: 07-10-2013 End: 10-27-2014 Pacer Clinic [facility] Work Phone: Start: 04-23-2013 End: 10-27-2014 Follow Up Appt 3 months Follow Up Appt 3 months [facility] Work Phone: Start: 04-23-2013 End: 10-27-2014 Pacer Clinic [facility] Work Phone: Start: 04-23-2013 End: 10-27-2014 Follow Up Appt 3 months Follow Up Appt 3 months [facility] Work Phone: Start: 04-23-2013 End: 10-27-2014 Pacer Clinic [facility] Work Phone: Start: 01-15-2013 End: 10-27-2014 Follow Up Appt 3 months Follow Up Appt 3 months [facility] Work Phone: Start: 01-15-2013 End: 10-27-2014 Pacer Clinic [facility] Work Phone: Start: 01-15-2013 End: 10-27-2014 Follow Up Appt 3 months Follow Up Appt 3 months [facility] Work Phone: Start: 01-15-2013 End: 10-27-2014 Pacer Clinic [facility] Work Phone: Start: 10-18-2012 End: 10-27-2014 Follow Up Appt 3 months Follow Up Appt 3 months [facility] Work Phone: Start: 10-18-2012 End: 10-27-2014 Pacer Clinic [facility] Work Phone: Start: 10-18-2012 End: 10-27-2014 Follow Up Appt 3 months Follow Up Appt 3 months [facility] Work Phone: Start: 10-18-2012 End: 10-27-2014 Pacer Clinic [facility] Work Phone: Start: 07-03-2012 End: 07-03-2012 Echocardiography Echocardiogram (complete) [facility] Work Phone: Start: 07-03-2012 End: 07-03-2012 Follow Up Appt 1 year Follow Up Appt 1 year [facility] Work Phone: Start: 07-03-2012 End: 07-03-2012 Echocardiography Echocardiogram (complete) [facility] Work Phone: Start: 07-03-2012 End: 07-03-2012 Follow Up Appt 1 year Follow Up Appt 1 year [facility] Work Phone: Start: 02-22-2012 End: 02-22-2012 Ecg routine ecg w/least 12 lds w/i&r EKG (In office) [facility] Work Phone: Start: 02-22-2012 End: 02-22-2012 Electrocardiogram, complete EKG (In office) [facility] Work Phone: Start: 12-02-2011 End: 12-02-2011 Follow Up Appt 6 months Follow Up Appt 6 months [facility] Work Phone: Start: 12-02-2011 End: 12-02-2011 Follow Up Appt 6 months Follow Up Appt 6 months [facility] Work Phone: Immunizations Immunization Date Immunization Notes Care Provider Fa cili 05-20-2024 influenza, injectabl e, quadrivalent, preservative free Tiarra Cedeno MD Work Phone: [facility]; [employer] Comment on above: Site: Right DeltoidV IS Given: * Influenza (Flu) Vaccine (Inactivated or Recombinant) (03/12/21) 06-06-2022 influenza, injectabl e, quadrivalent, contains preservative Tiarra Cedeno MD Work Phone: [facility]; [employer]. Comment on above: Site: Right DeltoidV IS Given: * Influenza Inactivated (03/12/21) 06-08-2021 COVID-Pfizer (30 MCG/0.3 ML) Tiarra Cedeno MD Work Phone: [facility]; [facility] 05-20-2021 influenza, injectabl e, quadrivalent, contains preservative Tiarra Cedeno MD Work Phone: [facility]; [facility] 11-09-2020 COVID-Pfizer (30 MCG/0.3 ML) Tiarra Cedeno MD Work Phone: [facility]; [employer] 10-19-2020 COVID-Pfizer (30 MCG/0.3 ML) Tiarra Cedeno MD Work Phone: [employer]; [employer] 05-30-2019 influenza virus vaccine, unspecified formulation Tiarra Cedeno MD Work Phone: [facility]; [employer] 05-30-2019 influenza, injectabl e, quadrivalent, contains preservative Tiarra Cedeno MD Work Phone: [facility]; [employer] Comment on above: Site: Left DeltoidVI S Given: * Influenza - Inactivated (03/13/15) 06-16-2017 influenza, injectabl e, quadrivalent, contains preservative Tiarra Cedeno MD Work Phone: [facility]; [employer] Comment on above: Site: Deltoid (Right )VIS Given: * Influenza - Inactivated (03/13/15) 06-18-2015 IMMUNIZATION ADMIN ([id number]) Tiarra Cedeno MD Work Phone: [employer]; [employer] 06-18-2015 influenza, seasonal, injectable Tiarra Cedeno MD Work Phone: [employer]; [employer]. Comment on above: Site: Deltoid (Left) VIS Given: * Inactivated Influenza (03/13/2015) 06-12-2013 influenza, seasonal, injectable Tiarra Cedeno MD Work Phone: [facility]; [employer] Comment on above: Site: Deltoid (Left) VIS Given: * Inactivated Influenza Vaccine (03/17/09) * Inactivated Influenza Vaccine (03/01/11) * Influenza vaccine , inactivated (02/06/2012) * VIS Given (Unspecified) 06-12-2013 IMMUNIZATION ADMIN ([id number]) Tiarra Cedeno MD Work Phone: [employer]; [employer] 06-06-2012 influenza, seasonal, injectable Tiarra Cedeno MD Work Phone: [employer]; [employer] Comment on above: Site: Deltoid (Left) VIS Given: * Inactivated Influenza Vaccine (03/17/09) * Inactivated Influenza Vaccine (03/01/11) * Influenza vaccine , inactivated (02/06/2012) * VIS Given (Unspecified) 06-06-2012 IMMUNIZATION ADMIN ([id number]) [facility] 06-01-2011 influenza, seasonal, injectable Tiarra Cedeno MD [facility] Comment on above: Site: Deltoid (Left) VIS Given: * Inactivated Influenza Vaccine (03/17/09) * Inactivated Influenza Vaccine (03/01/11) * Inactivated Influenza Vaccine (03/01/11) * Inactivated Influenza Vaccine (03/01/11) * Inactivated Influenza Vaccine (03/01/11) * Inactivated Influenza Vaccine (03/01/11) * Inactivated Influenza Vaccine (03/01/11) * VIS Given (Unspecified) * VIS Given (Unspecified) 06-01-2011 tetanus toxoid, reduced diphtheria toxoid, and acellular pertussis vaccine, adsorbed Tiarra Cedeno MD [facility]. Comment on above: Site: Deltoid (Right )VIS Given: * Tetanus/Diphtheria/(Pertussis) (Td/Tdap) (06/24/08) 06-01-2011 IMMUNIZATION ADMIN ([id number]) Tiarra Cedeno MD [facility]: [facility] 08-07-2000 tetanus and diphther ia toxoids, adsorbed, preservative free, for adult use (2 Lf of tetanus toxoid and 2 Lf of diphtheria toxoid) Tiarra Cedeno MD Work [facility]: [facility] Comment on above: at health dept Payers Date Payer Category Payer Self-pay 2023 Unknown [id number] 1960 Unknown [id number] 2.16.8 [id number] 1960 Unknown [id number] 2.16.8 [id number] Unknown Unknown [id number] Unknown [id number] 2.16.8 [id number] Unknown [id number] 2.16.8 [id number] Unknown [id number] 2.16.8 [id number] Unknown [id number] 2.16.8 [id number] Unknown [id number] 2.16.8 [id number] Unknown [id number] 2.16.8 [id number] Unknown [id number] 2.16.8 [id number] Unknown [id number] 2.16.8 [id number] Unknown [id number] 2.16.8 [id number] Unknown [id number] 2.16.8 [id number] Unknown [id number] 2.16.8 [id number] Unknown [id number] 2.16.8 [id number] Unknown [id number] 2.16.8 [id number] Social History Date Type Detail Facility [facility] [employer] Tobacco Use: Tobacco Use: ; N ever smoker. [facility] Start: 1960 Female [facility] Start: 07-11-2023 Never smoked tobacco [facility] Sex Female [facility] Procedure note 04-22-2025 Note Date & Type Note Facility 04-22-2025 Procedure note [facility] Evaluation note 04-22-2025 Note Date & Type Note Facility 04-22-2025 Evaluation note Diagnosis Onset Date Resolution Complete heart block chronic April 22, 2025 10:52am History of permanent cardiac pacemaker placement March 05, 2012 chronic April 22, 2025 10:52am History of permanent cardiac pacemaker placement March 05, 2012 chronic April 22, 2025 11:17am HLD (hyperlipidemia) chronic April 22, 2025 11:17am [employer] Work Phone: Evaluation note 03-05-2012 Note Date & Type Note Facility 03-05-2012 Evaluation note Diagnosis Onset Date Resolution History of permanent cardiac pacemaker placement March 05, 2012 chronic April 22, 2025 11:17am HLD (hyperlipidemia) chronic April 22, 2025 11:17am [employer] Work Phone: Reason for referral (narrative) Note Date & Type Note Facility Reason for referral (narrative) No reason for referral information available [place] [employer] Work Phone: Family History No Family History Records Found Cerebrovascular Accident Status:Active Comment s:Father. Coronary Artery Disease Status:Active Comments :Brother. Diabetes Mellitus Type II Status:Active Commen ts:brother Father Status:Active Comments: d. in 2010 at 80 yrs Hypertension Status:Active Comments:both pa rents Liver Cancer Status:Active Comments:materna l grandfather Mother Status:Active Comments: d. Parkinson's Disease Status:Active Comments:Fat her. Progressive Supranuclear Palsy Status:Active C omments:Father. at age 80 (03/2010) Scleroderma Status:Active Comments:Mother. Thyroid problems Status:Active Comments:mother Cerebrovascular Accident Status:Active Comment s:Father. Coronary Artery Disease Status:Active Comments :Brother. Diabetes Mellitus Type II Status:Active Commen ts:brother Father Status:Active Comments: d. in 2010 at 80 yrs Hypertension Status:Active Comments:both pa rents Liver Cancer Status:Active Comments:materna l grandfather Mother Status:Active Comments: d. Parkinson's Disease Status:Active Comments:Fat her. Progressive Supranuclear Palsy Status:Active C omments:Father. at age 80 (03/2010) Scleroderma Status:Active Comments:Mother. Thyroid problems Status:Active Comments:mother Cerebrovascular Accident Status:Active Comment s:Father. Coronary Artery Disease Status:Active Comments :Brother. Diabetes Mellitus Type II Status:Active Commen ts:brother Father Status:Active Comments:Avtar boudreaux in 2010 at 80 yrs Hypertension Status:Active Comments:both pa rents Liver Cancer Status:Active Comments:materna l grandfather Mother Status:Active Comments: d. Parkinson's Disease Status:Active Comments:Fat her. Progressive Supranuclear Palsy Status:Active C omments:Father. at age 80 (03/2010) Scleroderma Status:Active Comments:Mother. Thyroid problems Status:Active Comments:mother Cerebrovascular Accident Status:Active Comment s:Father. Coronary Artery Disease Status:Active Comments :Brother. Diabetes Mellitus Type II Status:Active Commen ts:brother Father Status:Active Comments:Avtar d. in 2010 at 80 yrs Hypertension Status:Active Comments:both pa rents Liver Cancer Status:Active Comments:materna l grandfather Mother Status:Active Comments: d. Parkinson's Disease Status:Active Comments:Fat her. Progressive Supranuclear Palsy Status:Active C omments:Father. at age 80 (03/2010) Scleroderma Status:Active Comments:Mother. Thyroid problems Status:Active Comments:mother Cerebrovascular Accident Status:Active Comment s:Father. Coronary Artery Disease Status:Active Comments :Brother. Diabetes Mellitus Type II Status:Active Commen ts:brother Father Status:Active Comments:Avtar boudreaux in 2010 at 80 yrs Hypertension Status:Active Comments:both pa rents Liver Cancer Status:Active Comments:materna l grandfather Mother Status:Active Comments:Avtar d. Parkinson's Disease Status:Active Comments:Fat her. Progressive Supranuclear Palsy Status:Active C omments:Father. at age 80 (03/2010) Scleroderma Status:Active Comments:Mother. Thyroid problems Status:Active Comments:mother Cerebrovascular Accident Status:Active Comment s:Father. Coronary Artery Disease Status:Active Comments :Brother. Diabetes Mellitus Type II Status:Active Commen ts:brother Father Status:Active Comments:Avtar dAnne in 2010 at 80 yrs Hypertension Status:Active Comments:both pa rents Liver Cancer Status:Active Comments:materna l grandfather Mother Status:Active Comments:Avtar cerna. Parkinson's Disease Status:Active Comments:Fat her. Progressive Supranuclear Palsy Status:Active C omments:Father. at age 80 (03/2010) Scleroderma Status:Active Comments:Mother. Thyroid problems Status:Active Comments:mother Cerebrovascular Accident Status:Active Comment s:Father. Coronary Artery Disease Status:Active Comments :Brother. Diabetes Mellitus Type II Status:Active Commen ts:brother Father Status:Active Comments: d. in 2010 at 80 yrs Hypertension Status:Active Comments:both pa rents Liver Cancer Status:Active Comments:materna l grandfather Mother Status:Active Comments: d. Parkinson's Disease Status:Active Comments:Fat her. Progressive Supranuclear Palsy Status:Active C omments:Father. at age 80 (03/2010) Scleroderma Status:Active Comments:Mother. Thyroid problems Status:Active Comments:mother Cerebrovascular Accident Status:Active Comment s:Father. Coronary Artery Disease Status:Active Comments :Brother. Diabetes Mellitus Type II Status:Active Commen ts:brother Father Status:Active Comments: d. in 2010 at 80 yrs Hypertension Status:Active Comments:both pa rents Liver Cancer Status:Active Comments:materna l grandfather Mother Status:Active Comments: d. Parkinson's Disease Status:Active Comments:Fat her. Progressive Supranuclear Palsy Status:Active C omments:Father. at age 80 (03/2010) Scleroderma Status:Active Comments:Mother. Thyroid problems Status:Active Comments:mother Cerebrovascular Accident Status:Active Comment s:Father. Coronary Artery Disease Status:Active Comments :Brother. Diabetes Mellitus Type II Status:Active Commen ts:brother Father Status:Active Comments: d. in 2010 at 80 yrs Hypertension Status:Active Comments:both pa rents Liver Cancer Status:Active Comments:materna l grandfather Mother Status:Active Comments: d. Parkinson's Disease Status:Active Comments:Fat her. Progressive Supranuclear Palsy Status:Active C omments:Father. at age 80 (03/2010) Scleroderma Status:Active Comments:Mother. Thyroid problems Status:Active Comments:mother Cerebrovascular Accident Status:Active Comment s:Father. Coronary Artery Disease Status:Active Comments :Brother. Diabetes Mellitus Type II Status:Active Commen ts:brother Father Status:Active Comments: d. in 2010 at 80 yrs Hypertension Status:Active Comments:both pa rents Liver Cancer Status:Active Comments:materna l grandfather Mother Status:Active Comments: d. Parkinson's Disease Status:Active Comments:Fat her. Progressive Supranuclear Palsy Status:Active C omments:Father. at age 80 (03/2010) Scleroderma Status:Active Comments:Mother. Thyroid problems Status:Active Comments:mother Cerebrovascular Accident Status:Active Comment s:Father. Coronary Artery Disease Status:Active Comments :Brother. Diabetes Mellitus Type II Status:Active Commen ts:brother Father Status:Active Comments: d. in 2010 at 80 yrs Hypertension Status:Active Comments:both pa rents Liver Cancer Status:Active Comments:materna l grandfather Mother Status:Active Comments: d. Parkinson's Disease Status:Active Comments:Fat her. Progressive Supranuclear Palsy Status:Active C omments:Father. at age 80 (03/2010) Scleroderma Status:Active Comments:Mother. Thyroid problems Status:Active Comments:mother Cerebrovascular Accident Status:Active Comment s:Father. Coronary Artery Disease Status:Active Comments :Brother. Diabetes Mellitus Type II Status:Active Commen ts:brother Father Status:Active Comments:Avtar cerna. in 2010 at 80 yrs Hypertension Status:Active Comments:both pa rents Liver Cancer Status:Active Comments:materna l grandfather Mother Status:Active Comments:Avtar cerna. Parkinson's Disease Status:Active Comments:Fat her. Progressive Supranuclear Palsy Status:Active C omments:Father. at age 80 (03/2010) Scleroderma Status:Active Comments:Mother. Thyroid problems Status:Active Comments:mother Cerebrovascular Accident Status:Active Comment s:Father. Coronary Artery Disease Status:Active Comments :Brother. Diabetes Mellitus Type II Status:Active Commen ts:brother Father Status:Active Comments:Avtar d. in 2010 at 80 yrs Hypertension Status:Active Comments:both pa rents Liver Cancer Status:Active Comments:materna l grandfather Mother Status:Active Comments: d. Parkinson's Disease Status:Active Comments:Fat her. Progressive Supranuclear Palsy Status:Active C omments:Father. at age 80 (03/2010) Scleroderma Status:Active Comments:Mother. Thyroid problems Status:Active Comments:mother Cerebrovascular Accident Status:Active Comment s:Father. Coronary Artery Disease Status:Active Comments :Brother. Diabetes Mellitus Type II Status:Active Commen ts:brother Father Status:Active Comments: d. in 2010 at 80 yrs Hypertension Status:Active Comments:both pa rents Liver Cancer Status:Active Comments:materna l grandfather Mother Status:Active Comments: d. Parkinson's Disease Status:Active Comments:Fat her. Progressive Supranuclear Palsy Status:Active C omments:Father. at age 80 (03/2010) Scleroderma Status:Active Comments:Mother. Thyroid problems Status:Active Comments:mother Cerebrovascular Accident Status:Active Comment s:Father. Coronary Artery Disease Status:Active Comments :Brother. Diabetes Mellitus Type II Status:Active Commen ts:brother Father Status:Active Comments: d. in 2010 at 80 yrs Hypertension Status:Active Comments:both pa rents Liver Cancer Status:Active Comments:materna l grandfather Mother Status:Active Comments: d. Parkinson's Disease Status:Active Comments:Fat her. Progressive Supranuclear Palsy Status:Active C omments:Father. at age 80 (03/2010) Scleroderma Status:Active Comments:Mother. Thyroid problems Status:Active Comments:mother Relationship Condition Age at Onset Recorded Date/[place] brother Coronary artery disease Unknown Diabetes mellitus Unknown brother Diabetes mellitus Unknown Summary Purpose Advance Directives No Advanced Directives Records FoundNo Advanced Directives Records FoundNo Advanced Directives Records Found Chief Complaint and Reason for Visit Chief Complaint Admit Date Pt called possibly at [facility] April 10:52am UPDATE H&P April 22, 2025 11:17am Reason for Visit Admit Date History of permanent cardiac pacemaker p lacement April 22, 2025 11:17am HLD (hyperlipidemia) April 22 11:17am Reason for Visit Admit Date Complete heart block April 22 10:52am History of permanent cardiac pacemaker p lacement April 22, 2025 10:52am History of permanent cardiac pacemaker p lacement April 22, 2025 11:17am HLD (hyperlipidemia) April 22 11:17am Chief Complaint Admit Date Pacer Check Remote April 22, 2025 9:00am Pt called possibly at [facility] April 10:52am UPDATE H&P April 22, 2025 11:17am Additional Source Comments INFORMATION SOURCE (unrecogn ized section and content) DATE CREATED AUTHOR 05/11/2024 [facility] DATE CREATED AUTHOR AUTHOR'S ORGANIZ ATION 05/16/2024 [facility] DATE CREATED AUTHOR AUTHOR'S ORGANIZ ATION 04/25/2025 [facility] Care Teams (unrecognized sec tion and content) Team Status: Active Member Role/Relationship Status Dates Dr. Tiarra Cedeno MD Primary Care Provider Active Team Status: Active Member Role/Relationship Status Dates Dr. Tiarra Cedeno MD Primary Care Provider Active Start: April 22, 2025 Dr. Tiarra Cedeno MD Referring Provider Active Start: April 22, 2025 Gia Silverman Attending Provider Active Start: [email or web address] 2024 Team Status: Inactive Member Role/Relationship Status Dates Dr. Tiarra Cedeno MD Primary Care Provider Active Start: April 22, 2025 End: April 22, 2025 Dr. Tiarra Cedeno MD Referring Provider Active Start: April 22, 2025 End: April 22, 2025 Di HERNANDEZ, PA Attending Provider Active Start: April 22, 2025 End: April 22, 2025 Team Status: Inactive Member Role/Relationship Status Dates Dr. Tiarra Cedeno MD Primary Care Provider Active Start: April 22, 2025 End: April 22, 2025 Dr. Tiarra Cedeno MD Referring Provider Active Start: April 22, 2025 End: April 22, 2025 Gia Silverman Attending Provider Active Start: [email or web address] 2024 End: April 22, 2025 Team Status: Active Member Role/Relationship Status Dates Dr. Tiarra Cedeno MD Primary Care Provider Active Start: April 22, 2025 Dr. Tanvir Gallo MD Attending Provider Active S tart: April 22, 2025 Dr. Tanvir Gallo MD Referring Provider Active S tart: April 22, 2025 Team Status: Active Member Role/Relationship Status Dates Dr. Tiarra Cedeno MD Primary care physician Activ e Team Status: Inactive Member Role/Relationship Status Dates Dr. Tiarra Cedeno MD Primary care physician Activ e Start: April 22, 2025 End: April 22, 2025 Dr. Tanvir Gallo MD Attending physician Active Start: April 22, 2025 End: April 22, 2025 Team Status: Inactive Member Role/Relationship Status Dates Dr. Tiarra Cedeno MD Primary care physician Activ e Start: April 22, 2025 End: April 22, 2025 Dr. Tiarra Cedeno MD Referring Provider Active Start: April 22, 2025 End: April 22, 2025 Gia Silverman Attending physician Active Start: April 22, 2025 End: April 22, 2025 Team Status: Inactive Member Role/Relationship Status Dates Dr. Tiarra Cedeno MD Primary care physician Activ e Start: April 22, 2025 End: April 22, 2025 Dr. Tiarra Cedeno MD Referring Provider Active Start: April 22, 2025 End: April 22, 2025 Di HERNANDEZ PA Attending physician Active Start: April 22, 2025 End: April 22, 2025 Team Status: Active Member Role/Relationship Status Dates Dr. Tiarra Cedeno MD Primary care physician Activ e Start: April 22, 2025 Dr. Tanvir Gallo MD Attending physician Active Start: April 22, 2025 Dr. Tanvir Gallo MD Referring Provider Active S tart: April 22, 2025 Goals (unrecognized section and content) Goals may be documented in a n alternate sectionGoals may be documented in an alternate sectionGoals may be documented in an alternate section FOR RECORDS PERTAINING TO PATIENTS WHO ARE OR HAVE BEEN ENROLLED IN A CHEMICAL DEPENDENCY/SUBSTANCEABUSE PROGRAM, SOME INFORMATION MAY BE OMITTED. This clinical summary was aggregated from multiple sources. Caution should be exercised in using it in the provision of clinical care. This summary normalizes information from multiple sources, and as a consequence, information in this document may materially change the coding, format and clinical context of patient data. In addition, data may be omitted in some cases. CLINICAL DECISIONS SHOULD BE BASED ON THE PRIMARY CLINICAL RECORDS. [employer] provides no warranty or guarantee of the accuracy or completeness of information in this document.
--- NOTE | 2025-04-25 08:57 | CL.IE_ITS ---
Patient: DEMARIO VELEZ Study Date: 04/25/2025 Performing: Tanvir Gallo MD : 1960 Age: 64 Gender: female PROCEDURES PERFORMED LP07-([id number])BATTERY REMOVAL+REPLACEMENT PACER-DUAL LEAD INDICATIONS Complete heart block End-of-life replacement indicator PROCEDURE DETAILS The patient was brought to the Catheterization Lab in the postabsorptive nonsedated state. Informed consent was obtained prior to the procedure. Local anesthetic was given subcutaneously to the left upper chest area with Lidocaine 2%. The old PPM generator was removed. The new PPM generator was attached to the lead(s) and inserted into the pocket. Device pocket was irrigated with antibiotic, Ancef 2gm. Subcutaneous closure was completed with 3-0 Vicryl. Skin closure was completed with 4-0 Vicryl. The patient tolerated the procedure well. Estimated Blood Loss: 10 ml's IMPLANTED / EX-PLANTED DEVICES IMPLANTED DEVICE(S): PPM Generator - [employer]il [employer]or: [employer], Model # L131 , Serial # [id number] DEVICE PARAMETERS DEVICE PARAMETERS: Mode- DDD Lower rate- 60 Upper rate- 130 CONCLUSIONS / RECOMMENDATIONS Device Conclusions: Successful implantation of a dual chamber pacemaker battery change and replacement Device Recommendations: Follow up with Primary Care Physician PROCEDURE MEDICATIONS Fentanyl 50 mcg IV Versed 1 mg IV Oxygen: 2 L/min via nasal cannula Antibiotic given in appropriate timeframe. Ancef 2 Gm IV @ 04/25/2025 08:00:09 Signed By Tanvir Gallo MD On 04/25/2025 08:56:22 Tanvir Gallo MD
== END 2025-04-25 10:00 | disposition home or self-care (01) ==
PROVIDERS: PCP Family Medicine; Referring Provider Internal Medicine Cardiovascular Disease; Visit Provider Internal Medicine Cardiovascular Disease
DX: Z45.010 Encounter for checking and testing of cardiac pacemaker pulse generator [battery] (principal); I44.2 Atrioventricular block, complete; E78.5 Hyperlipidemia, unspecified; R06.09 Other forms of dyspnea
CPT/HCPCS: 33228; 99152; 99153